=== PATIENT | male | born 1950 | race Caucasian/White ===

== ENCOUNTER → 2017-12-13 11:34 | Outpatient (CLI) | payer MEDICARE, SELFPAY ==
--- NOTE | 2017-12-13 11:37 | DI.RAD.S_ITS ---
PROCEDURE: XR LUMBAR SPINE MIN 4V INDICATIONS: Lumbar stenosis with left L4-5 radicular TECHNIQUE: 5 views of the lumbar spine were acquired. COMPARISON: [facility], CR, SPINE LUMB 2 OR 3VW, 09/24/2016, 16:16. [facility], MR, L-SPINE W&WO CONTRAST, 06/03/2017, 17:52. FINDINGS: Bones: 5 nonrib-bearing vertebrae are present. There is mild retrolisthesis at L2-3. Degenerative disc disease and spondylosis at L2-3 and L5-S1. Facet sclerosis L3-4, L4-5 and L5-S1.. No vertebral body compression fractures. No suspicious bony lesions. Soft tissues: Overlying bowel gas pattern is normal. No suspicious soft tissue calcifications. Oblique images: No pars defects. IMPRESSION: 1. Degenerative disc disease L2-3 and L5-S1 2. Facet arthropathy L3-4 through L5-S1. Dictated by: Saul Pinzon M.D. on 12/13/2017 at 12:18 Approved by: Saul Pinzon M.D. on 12/13/2017 at 12:22
== END ==
PROVIDERS: PCP Family Medicine; Visit Provider Physical Medicine & Rehabilitation
DX: M51.16 Intervertebral disc disorders with radiculopathy, lumbar region (principal); M48.062 Spinal stenosis, lumbar region with neurogenic claudication; M51.17 Intervertebral disc disorders with radiculopathy, lumbosacral region; M47.26 Other spondylosis with radiculopathy, lumbar region; M47.27 Other spondylosis with radiculopathy, lumbosacral region; M96.1 Postlaminectomy syndrome, not elsewhere classified
CPT/HCPCS: 72110; 99214

== ENCOUNTER → 2017-12-18 16:11 | Outpatient (CLI) | payer MEDICARE, SELFPAY ==
--- NOTE | 2017-12-18 | DI.RAD.S_ITS ---
PROCEDURE: XR RIBS LT 2V INDICATIONS: LEFT RIB PAIN TECHNIQUE: 2 views of the left ribs were acquired. COMPARISON: None. FINDINGS: Surgical changes and devices: None. Bones and chest wall: No fractures or dislocations. No suspicious bony lesions. Overlying soft tissues appear unremarkable. Lungs and pleura: The visualized lung appears clear. No pleural effusions or pneumothorax are visible. IMPRESSION: No trauma found, source of asymmetric left sided rib pain is not seen. Dictated by: Matthias Abdi M.D. on 12/18/2017 at 16:49 Approved by: Matthias Abdi M.D. on 12/18/2017 at 16:50
== END ==
PROVIDERS: PCP Family Medicine; Visit Provider Family Medicine
DX: R07.81 Pleurodynia (principal)
CPT/HCPCS: 71100

== ENCOUNTER 2017-12-24 10:25 | Outpatient (CLI) | payer MEDICARE, SELFPAY ==
[2017-12-24] VITALS (8 sets, daily range): BP systolic 108–140; BP diastolic 64–91; PULSE 60–67; RESP 11–18; TEMP 36.6; O2SAT 97–100
--- NOTE | 2017-12-24 10:26 | DI.RAD.S_ITS ---
PROCEDURE: PAIN L/S TRANSFORAMINAL INJECT INDICATIONS: Lumbar stenosis FINDINGS: Fluoroscopic spot filming was performed to verify placement of spinal needles at the L4-5 level(s), as labeled on the films. Appropriate location(s) of the needle tip(s) was confirmed by injection of iodinated contrast. IMPRESSION: Intraoperative verification of needle placement at the L4-5 level Dictated by: Saul Pinzon M.D. on 12/24/2017 at 13:19 Approved by: Saul Pinzon M.D. on 12/24/2017 at 13:19
--- NOTE | 2017-12-24 11:09 | P.PCN_ITS ---
Procedures Date/Time Date of procedure: 12/24/17 Time of procedure: 11:08 General Procedure description: PREOP DIAGNOSIS 1. FORMAINAL STENOSIS WITH LE SYMPTOMS POST OP DIAGNOSIS 1. FORMAINAL STENOSIS WITH LE SYMPTOMS PROCEDURES 1. FLUOROSCOPICALLY GUIDED CONTRAST CONTROLLED TRANSFORAMINAL EPIDURAL STEROID INJECTION - LEFT L4/5 PHYSICIAN: Lopez Smith DO INDICATIONS: Dhiraj is referred by Dr. Ross for treatment of Foraminal Stenosis with Left LE Symptoms FINDINGS Foraminal Nerve Root Compression secondary to disc disease and facet hypertrophy DESCRIPTION OF PROCEDURE: Following denial of allergy and review of potential side effects and complications, including, but not necessarily limited to, infection, allergic reaction, local tissue breakdown, stroke, temporary or permanent nerve injury, paralysis, and possible , the patient indicated that the patient understood and agreed to proceed. An informed consent document was signed by the patient, witnessed by a nurse, and placed in the patient's chart. Additionally, other treatment options including medications, modalities, and physical therapy were reviewed with the patient. After review of previous anaesthesic history and IV conscious sedation the patient was deemed safe to proceed with todays procedure with IV conscious sedation as ASA class II designation. Safety time-out was performed to confirm patient ID, procedure to be performed and site of procedure. IV sedation was accomplished with a combination of 5mg of Versed administered by the RN after DO order, titrated to patient comfort during the course of the procedure while the patient remained responsive to all verbal commands In the prone position following sterile prep and drape of the lumbar region, the left L4/5 posterior neuroforamen was identified fluoroscopically. The skin was anesthetized via a 25-gauge 1.5-inch needle with 1% lidocaine solution. At this point, a 25-gauge 3.5-inch spinal needle was atraumatically introduced and advanced under fluoroscopic guidance through the posterior left L4/5 neuroforamen to approximately the anterior aspect of the canal. Depth was confirmed on lateral view. Following negative aspiration, injection of approximately 1.5 cc of Isovue 200 under live fluoroscopy in the AP view confirmed excellent flow along the nerve root, into the epidural space without vascular or intrathecal uptake observed Radiological data, including multiple fluoroscopic views of the lumbosacral spine, reveal a spinal needle at the left L4/5 posterior neuroforamen. Subsequent views show flow of contrast material flowing superiorly and inferiorly along the nerve root confirming epidural flow. Subsequently, a test dose of 1.5 cc of 1% lidocaine solution was administered and patient was observed for two minutes for signs or symptoms of complications , including abdominal pain, shortness of breath, bilateral upper or lower extremity weakness, nausea and vomiting, prior to steroid injection. At this point, a total of 3 cc or 20 mg of dexamethasone and 80mg Depo Medrol was injected without incident. The procedure tolerated the procedure well without signs or symptoms of complications prior to transfer to the recovery area continued monitoring without incident. The patient was then transferred to the recovery area where they were observed for an appropriate time after the injection. The patient reported a VAS score of 7 prior to the procedure and a post- procedure VAS of 0. Total Fluoroscopy Time: 20.9 seconds Total Conscious Sedation Time: 24min POST OP INSTRUCTIONS The patient was provided a Pain Log to continue to record their response to the target-specific procedure prior to follow-up visit with their referring physician. Additionally, specific post-injection care instructions and a contact number to our office were provided if concerns arise regarding possible complications associated with the procedure are suspected. Lopez Smith DO Complications: none
[2017-12-24] MEDS: MIDAZOLAM 5 MG/5 ML VIAL IV (11:42)
[2017-12-24] MEDS: IOPAMIDOL 15 ML VIAL 3 ML INJ (11:42)
[2017-12-24] MEDS: BUPIVACAINE 0.25% (PF) VIAL 2 ML INJ (11:42)
[2017-12-24] MEDS: DEXAMETHASONE 10 MG/ML VIAL 20 MG INJ (11:43)
[2017-12-24] MEDS: methylPREDNISolone acetate 80 MG/ML VIAL INJ (11:43)
--- NOTE | 2017-12-25 18:06 | PC.NURSE ---
Follow up appt post procedure. left message as pt was not home or not answering.
== END 2017-12-24 12:30 ==
LOC: RAD 10:26
PROVIDERS: PCP Family Medicine; Visit Provider Physical Medicine & Rehabilitation
DX: M48.062 Spinal stenosis, lumbar region with neurogenic claudication (principal); M51.16 Intervertebral disc disorders with radiculopathy, lumbar region; M96.1 Postlaminectomy syndrome, not elsewhere classified
CPT/HCPCS: 64483; 99152; J1040; J1100; J2250

== ENCOUNTER → 2018-01-07 11:27 | Outpatient (CLI) | payer MEDICARE, SELFPAY ==
[2018-01-07 13:04] LABS: Hep C Virus Ab w/Reflex Quant NEGATIVE s/c (NEGATIVE)
== END ==
PROVIDERS: PCP Family Medicine; Visit Provider Internal Medicine Gastroenterology
DX: Z11.59 Encounter for screening for other viral diseases (principal)
CPT/HCPCS: 36415; 86803

== ENCOUNTER → 2018-03-24 16:59 | Outpatient (CLI) | payer MEDICARE, SELFPAY ==
--- NOTE | 2018-03-24 | DI.MRI.S_ITS ---
PROCEDURE: MR STROKE Pre- and post-contrast brain MRI, non-contrast brain MR angiogram, pre- and postcontrast neck MR angiogram INDICATIONS: SPEECH DISTURBANCE. Headaches. Head pressure TECHNIQUE: Brain: Noncontrast axial T1 spin echo, axial T2 fast spin echo, sagittal and axial FLAIR, coronal T2 fast spin echo, axial gradient echo, axial diffusion and ADC through the brain. After the administration of contrast, axial 3D VIBE of the cranial vasculature and brain. Brain MRA: Non-contrast 3-D time of flight MR angiogram, with multiple aiilaak-cixaveaoo-mcfpmktykn (MIP) reformats performed. Neck MRA: Axial and sagittal TruFISP through the neck. Coronal dynamic MR angiogram during administration of contrast in the arterial and venous phases, with 3-dimenstional fzqpdwh-osdymjxrz-xhdhzcifrn (MIP) reformats constructed from subtraction images. COMPARISON: None. FINDINGS: Image quality: Excellent. BRAIN: CSF spaces: Ventricles are normal in size and shape. Basal cisterns are patent. No extra-axial fluid collections. Brain: No intracranial bleeds or mass effects. Paulino-white matter interface is normal. Diffusion weighted images show no acute ischemic insults. Brainstem appears normal. Normal intravascular flow voids are present. No abnormal intracranial enhancement. Skull and face: Calvarial marrow signal is normal. Orbits appear normal. Sinuses: Mild bilateral maxillary sinus disease. BRAIN MR ANGIOGRAM: Anterior circulation: Intracranial internal carotid arteries are normal in size and enhancement. The flow within the paired anterior cerebral arteries is normal and symmetric. The flow within the middle cerebral arteries is normal and symmetric. The anterior communicating artery is seen. No stenoses, occlusions, or aneurysms. Posterior circulation: The visualized portions of the vertebral arteries demonstrate normal caliber, and join to form a normal appearing basilar artery. The flow within the posterior cerebral arteries is normal and symmetric. No stenoses, occlusions, or aneurysms. NECK MR ANGIOGRAM: Carotids: Great vessels demonstrate a conventional anatomy as they arise from the aortic arch. The origins of the common carotid arteries appear patent. The calibers and courses of both common carotid arteries are normal. The bifurcation regions appear normal bilaterally. The internal carotid arteries demonstrate normal course and caliber. Posterior circulation: The origins of the vertebral arteries appear patent. More superior portions of both vertebral arteries demonstrate normal course and caliber, and join to form a normal appearing basilar artery. Miscellaneous: Subclavian arteries appear patent. Pre-contrast images through the neck show no soft tissue abnormalities. IMPRESSION: BRAIN MRI: No evidence of acute ischemia. No acute signal abnormality. Mild bilateral maxillary sinus disease. BRAIN MR ANGIOGRAM: Negative examination. No focal stenosis or occlusion NECK MR ANGIOGRAM: No ICA stenosis. Dictated by: Johan oDn M.D. on 03/25/2018 at 7:50 Approved by: Johan Don M.D. on 03/25/2018 at 7:59
== END ==
PROVIDERS: PCP Family Medicine; Visit Provider Family Medicine
DX: R47.9 Unspecified speech disturbances (principal); R51 Headache; J32.0 Chronic maxillary sinusitis
CPT/HCPCS: 70553; A9579

== ENCOUNTER → 2018-06-03 15:58 | Outpatient (CLI) | payer MEDICARE, SELFPAY ==
--- NOTE | 2018-06-03 | DI.MRI.S_ITS ---
PROCEDURE: MR CERVICAL SPINE WO CON INDICATIONS: HEADACHE DISORDER TECHNIQUE: Noncontrast sagittal T1 spin echo and T2 fast spin echo, sagittal STIR, foraminal oblique sagittal T2 fast spin echo, and axial gradient echo or T2 fast spin echo through the cervical spine. COMPARISON: [facility], , CERVICAL SPINE 2 OR 3 VIEWS, 10/29/2012, 15:32. [facility], , CERVICAL SPINE 4 OR 5 VIEWS, 04/18/2015, 15:27. FINDINGS: Image quality: Excellent. Alignment and Curvature: There is normal bony alignment. Bone Marrow: Marrow demonstrates normal overall signal. Spinal Cord: Visualized spinal cord has normal size and signal. No cerebellar tonsillar herniation. Paraspinous Soft Tissues: No paravertebral masses. Prevertebral soft tissues are normal in thickness. C2-C3: Mild to moderate loss of disc height and disc signal are seen. Moderate generalized disc osteophyte complex is seen. Mild facet joint hypertrophy is seen. Moderate bilateral neural foraminal narrowing can be seen, right worse than left. Mild to moderate central canal narrowing is seen. C3-C4: Moderate loss of disc height is seen. Loss of disc signal is seen. At least moderate disc osteophyte complex is seen, which is eccentric to the left. There is moderate to severe bilateral neural foraminal narrowing seen, right worse than left. Moderate to severe central canal narrowing is seen, with associated mass effect upon the ventral spinal cord, as on series 3 image 17. C4-C5: Moderate loss of disc height is seen. Loss of disc signal is seen. Moderate generalized disc osteophyte complex is seen. Mild to moderate facet hypertrophy is seen. There is moderate to severe bilateral neural foraminal narrowing seen. Severe central canal narrowing is seen, with associated mass effect upon the ventral spinal cord, as on series 3 image 21. C5-C6: Moderate loss of disc height and disc signal are seen. Moderate generalized disc osteophyte complex is seen. Moderate facet joint hypertrophy is seen. There is moderate to severe bilateral neural narrowing seen, left worse than right. Moderate to severe central canal narrowing is seen, with associated mass effect upon the ventral spinal cord, as on series 3 image 25. C6-C7: Moderate loss of disc height is seen. Loss of disc signal is seen. Moderate generalized disc osteophyte complex is seen. Uncovertebral joint hypertrophy is seen at this level. Mild to moderate facet hypertrophy is seen. Moderate bilateral neural foraminal narrowing is seen. Mild to moderate central canal narrowing is seen. C7-T1: The disc height is well-preserved. Loss of disc signal is seen at this level. Mild to moderate disc osteophyte complex is seen. Mhjd-zq-akttvitf bilateral neural foraminal narrowing is seen. Mild to moderate central canal narrowing is seen. IMPRESSION: Multilevel cervical spine degenerative change are seen, which are most prominent at the C3-C4, C4-C5, and C5-C6 levels. Dictated by: Terrence Villafana M.D. on 06/03/2018 at 16:50 Approved by: Terrence Villafana M.D. on 06/03/2018 at 16:56
== END ==
PROVIDERS: Family Provider Physical Medicine & Rehabilitation; PCP Family Medicine; Visit Provider Psychiatry & Neurology Neurology
DX: R51 Headache (principal); M47.812 Spondylosis without myelopathy or radiculopathy, cervical region
CPT/HCPCS: 72141

== ENCOUNTER 2018-07-16 08:13 | Outpatient (CLI) | payer MEDICARE, SELFPAY ==
[2018-07-16] VITALS (7 sets, daily range): BP systolic 100–138; BP diastolic 61–80; PULSE 58–68; RESP 16–18; TEMP 36.4; O2SAT 95–100
--- NOTE | 2018-07-16 08:15 | DI.RAD.S_ITS ---
PROCEDURE: PAIN C/T INTERLAMINAR INJECT INDICATIONS: SPINAL STENOSIS FINDINGS: Fluoroscopic spot filming was performed to verify placement of spinal needles at the C6-C7 level(s), as labeled on the films. Appropriate location(s) of the needle tip(s) was confirmed by injection of iodinated contrast. Dictated by: Johan Don M.D. on 07/16/2018 at 17:24 Approved by: Johan Don M.D. on 07/16/2018 at 17:24
[2018-07-16] MEDS: fentaNYL 100 MCG/2 ML INJ 50 MCG IV (08:50)
[2018-07-16] MEDS: MIDAZOLAM 5 MG/5 ML VIAL IV (08:50)
--- NOTE | 2018-07-16 09:05 | PC.NURSE ---
Pt tolerated procedure well, pt able to get off table with standby assist. Transferred pt to pre procedure room for continued monitoring by Wendy LUDWIG.
--- NOTE | 2018-07-16 09:12 | P.PCN_ITS ---
Procedures Date/Time Date of procedure: 07/16/18 Time of procedure: 09:11 General Procedure description: PREOP DIAGNOSIS 1. CERVICAL STENOSIS, 2. CERVICAL HNP WITH UPPER EXTREMITY RADICULAR FEATURES, POST OP DIAGNOSIS 1. CERVICAL STENOSIS, 2. CERVICAL HNP WITH UPPER EXTREMITY RADICULAR FEATURES, PROCEDURES 1. FLUORSCOPICALLY GUIDED CONTRAST CONTROLLED INTERLAMINAR EPIDURAL STEROID INJECTION - C6/7 TL ETHAN PHYSICIAN: Lopez Smith, DO INDICATIONS Enoch is referred by Dr. Ross for treatment of Cervical HNP with Upper Extremity Paresthesias. FINDINGS Cervical Stenosis due to disc deterioration and nerve root irritation and nerve root irritation DESCRIPTION OF PROCEDURE Fluoroscopically guided, contrast-controlled C6/7 translaminar epidural steroid injection with conscious sedation. Following denial of allergy and review of potential side effects and complications, including, but not necessarily limited to, infection, allergic reaction, local tissue breakdown, temporary as well as permanent nerve injury, stroke, paralysis, and possible , the patient indicated that patient understood and agreed to proceed. An informed consent document was signed by the patient, witnessed by a nurse, and placed in the patient's chart. Additionally, other treatment options including modalities, medications, and physical therapy were reviewed with the patient. After review of previous anaesthesic history and IV conscious sedation the patient was deemed safe to proceed with todays procedure with IV conscious sedation as ASA class II designation. Safety time-out was performed to confirm patient ID, procedure to be performed and site of procedure. IV sedation was accomplished with a combination of 5mg of Versed and 50mcg of Fentanyl administered by the RN after DO order, titrated to patient comfort during the course of the procedure while the patient remained responsive to all verbal commands. In the prone position, following sterile prep and drape of the cervical region, the C6/7 translaminar space was identified fluoroscopically. The skin was anesthetized via a 25-gauge 1.5-inch needle with 1% lidocaine solution. At this point, a 25-gauge, 2.5-inch short bevel spinal needle was atraumatically in troduced and advanced under fluoroscopic guidance into epidural space at the C6/7 translaminar space. Depth was confirmed on lateral view. Radiological data, including multiple fluoroscopic views of the cervical spine, reveal a spinal needle at the C6/7 translaminar space. Lateral views then show placement of the needle in the epidural space. Subsequent views show contrast material flowing superiorly and inferiorly in the epidural space. DSA fluoroscopy with live contrast injection, once again, confirmed no vascular or intrathecal uptake. At this point, using loss of resistance technique with saline and air, the epidural space was entered. Following negative aspiration, injection of approximately 1.5 cc of Isovue-200 with live fluoroscopy in the AP view confirmed epidural flow in the epidural space without vascular or intrathecal uptake observed. Subsequently, a test dose of 1 cc of 1% lidocaine solution was injected and patient was observed for two minutes without signs or symptoms of complications, including abdominal pain, shortness of breath, bilateral upper or lower extremity weakness, nausea and vomiting, prior to steroid injection. At this point, 2cc or 20mg of dexamethasone was then injected without incident. The patient tolerated the procedure well without signs or symptoms of complications prior to being transferred to the recovery area for further monit oring, The patient was then transferred to the recovery area where they were observed for an appropriate period of time after the injection. The patient reported a VAS score of 6 prior to the procedure and a post-procedure VAS of 0. Total Fluoroscopy Time: 37.0 seconds Total Conscious Time: 24min POST OP INSTRUCTIONS The patient was provided a Pain Log to continue to record their response to the target-specific procedure prior to follow-up visit with the referring provider. Additionally, specific post-injection care instructions and a contact number to our office were provided if concerns arise regarding possible complications associated with the procedure are suspected. Lopez Smith DO Complications: none
[2018-07-16] MEDS: LIDOCAINE 1% 20 ML INJ 5 ML INJ (09:17)
[2018-07-16] MEDS: IOPAMIDOL 15 ML VIAL 3 ML INJ (09:17)
[2018-07-16] MEDS: DEXAMETHASONE 10 MG/ML VIAL 20 MG INJ (09:17)
--- NOTE | 2018-07-16 09:18 | PC.NURSE ---
ACCEPTED CARE OF PT IN POST PROC AREA IN STABLE CONDITION
== END 2018-07-16 09:39 | disposition home or self-care (01) ==
LOC: RAD 08:14
PROVIDERS: Family Provider Physical Medicine & Rehabilitation; PCP Family Medicine; Visit Provider Physical Medicine & Rehabilitation
DX: M48.02 Spinal stenosis, cervical region (principal); M50.123 Cervical disc disorder at C6-C7 level with radiculopathy; M47.22 Other spondylosis with radiculopathy, cervical region
CPT/HCPCS: 62321; 99152; J1100; J2250; J3010

== ENCOUNTER → 2018-12-05 09:06 | Outpatient (CLI) | payer MEDICARE, SELFPAY ==
--- NOTE | 2018-12-05 | DI.US.S_ITS ---
PROCEDURE: US ARTERIAL DUPLEX LE BI INDICATIONS: BILATERAL LEG PAIN TECHNIQUE: Color and pulse Doppler interrogation was performed of both lower extremity arterial systems, with image documentation. COMPARISON: None. FINDINGS: Right lower extremity: Common femoral artery: 186 cm/sec, with triphasic flow. Deep femoral artery: 217 cm/sec, with triphasic flow. Proximal superficial femoral artery: 165 cm/sec, with triphasic flow. Mid superficial femoral artery: 121 cm/sec, with triphasic flow. Distal superficial femoral artery: 87 cm/sec, with triphasic flow. Popliteal artery: 108, 55 cm/sec, with triphasic flow. Posterior tibial artery: 89, 117, 93 cm/sec, with triphasic flow. Anterior tibial artery/dorsalis pedis: 63, 85, 104 cm/sec, with triphasic flow. Paulino-scale imaging description: No significant stenoses Left lower extremity: Common femoral artery: 116 cm/sec, with triphasic flow. Deep femoral artery: 105 cm/sec, with triphasic flow. Proximal superficial femoral artery: 108 cm/sec, with triphasic flow. Mid superficial femoral artery: 90 cm/sec, with triphasic flow. Distal superficial femoral artery: 67 cm/sec, with triphasic flow. Popliteal artery: 68, 64 cm/sec, with triphasic flow. Posterior tibial artery: 64, 66, 93 cm/sec, with triphasic flow. Anterior tibial artery/dorsalis pedis: 45, 49, 55 cm/sec, with triphasic flow. Paulino-scale imaging description: No significant stenoses IMPRESSION: No evidence of significant infrainguinal stenotic disease. Dictated by: Jacek Evangelista M.D. on 12/05/2018 at 18:31 Approved by: Jacek Evangelista M.D. on 12/05/2018 at 18:34
== END ==
PROVIDERS: Family Provider Psychiatry & Neurology Neurology; PCP Family Medicine; Visit Provider Family Medicine
DX: M79.605 Pain in left leg (principal); M79.604 Pain in right leg
CPT/HCPCS: 93925

== ENCOUNTER → 2019-03-10 12:19 | Outpatient (CLI) | payer MEDICARE, SELFPAY ==
--- NOTE | 2019-03-10 | DI.CT.S_ITS ---
PROCEDURE: CT UE RT WO CON INDICATIONS: Primary osteoarthritis, right shoulder TECHNIQUE: Noncontrast 1-1.5 mm thick sections acquired from the acromioclavicular joint to the inferior scapula, with coronal and sagittal reformatting. COMPARISON: None. FINDINGS: Image quality: Excellent. Bones: No fracture. Severe right glenohumeral joint degeneration with near zbyi-mg-govs appearance, subchondral sclerosis and spurring. Diffuse osteopenia. Mild AC joint degeneration. Posterior subluxation of the humerus relative to the glenoid Soft tissues: Right thyroid lobe calcification. Calcific tendinitis measuring approximately 4 mm on image 132 series 4. IMPRESSION: Severe right glenohumeral joint degeneration. Right shoulder calcific tendinitis. Nonspecific right thyroid calcified lesion. Further evaluation and long-term surveillance with ultrasound could be performed. Posterior subluxation of the humerus relative to the glenoid raising the possibility of posterior labral tear and associated microinstability. Dictated by: Johan Don M.D. on 03/10/2019 at 13:22 Approved by: Johan Don M.D. on 03/10/2019 at 13:30
== END ==
PROVIDERS: Family Provider Psychiatry & Neurology Neurology; PCP Family Medicine; Visit Provider Orthopaedic Surgery
DX: M19.011 Primary osteoarthritis, right shoulder (principal); M75.31 Calcific tendinitis of right shoulder; E07.9 Disorder of thyroid, unspecified
CPT/HCPCS: 73200

== ENCOUNTER → 2019-05-04 10:44 | Outpatient (CLI) | payer MEDICARE, SELFPAY ==
[2019-05-04 12:05] LABS: Add Manual Diff / Slide Review NO; Basophils Absolute Auto 0 /uL (0-100); Basophils Percent Auto 0.9 % (0-2); Eosinophils Absolute Auto 0 /uL (0-450); Eosinophils Percent Auto 1.3 % (2-4); Hematocrit 42.4 % (41-53); Hemoglobin 14.9 g/dL (13.5-17.5); Lymphocytes Absolute Auto 1100 /uL (1100-4500); Lymphocytes Percent Auto 36.4 % (25-40); Mean Corpuscular HGB Conc 35.1 % (30-36); Mean Corpuscular Hemoglobin 32.2 PG (26-34); Mean Corpuscular Volume 91.8 fL (80-100); Monocytes Absolute Auto 400 /uL (0-900); Monocytes Percent Auto 13.1 % (3-14); Neutrophils Absolute Auto 1400 /uL (1500-7000); Neutrophils Percent Auto 48.3 % (50-75); Platelet Count 232 X10^3/uL (150-400); Red Blood Cell Count 4.61 X10^6/uL (4.5-5.9); Red Cell Distribution Width 13.1 % (11.6-14.8); White Blood Cell Count 2.9 X10^3/uL (4.5-11.0)
[2019-05-04 12:38] LABS: Blood Urea Nitrogen 20 mg/dL (9-20); Calcium 9.3 mg/dL (8.4-10.2); Carbon Dioxide 30 mmol/L (22-32); Chloride 95 mmol/L (98-107); Estimated Glomerular Filt Rate > 60.0 mL/min (>60); Glucose 89 mg/dL (80-110); HEMOLYSIS < 15 (0-50); Potassium 4.3 mmol/L (3.4-5.1); Sodium 133 mmol/L (137-145)
== END ==
PROVIDERS: Family Provider Psychiatry & Neurology Neurology; PCP Family Medicine; Visit Provider Orthopaedic Surgery
DX: Z01.818 Encounter for other preprocedural examination (principal); Z01.812 Encounter for preprocedural laboratory examination
CPT/HCPCS: 36415; 80048; 85025; 93005; 93010

== ENCOUNTER 2019-05-18 06:00 | Inpatient (IN) | payer MEDICARE, SELFPAY ==
[2019-05-04 13:40] VITALS: BMI 29.0
[2019-05-18] VITALS (21 sets, daily range): BP systolic 107–151; BP diastolic 53–69; PULSE 64–84; RESP 10–20; TEMP 36.1–37; O2SAT 92–97; BMI 29.9
--- NOTE | 2019-05-18 06:00 | DI.RAD.S_ITS ---
PROCEDURE: XR SHOULDER RT MIN 2V INDICATIONS: post op TECHNIQUE: One views of the shoulder were acquired. COMPARISON: [facility], CR, XR SHOULDER 2+ VIEWS RIGHT, 10/06/2018, 12:00. [facility], CT, CT UE RT WO CON, 03/10/2019, 12:28. FINDINGS: Bones: No fractures or dislocations. No suspicious bony lesions. Visualized ribs appear intact. Partial shoulder arthroplasty is noted. Soft tissues: No suspicious soft tissue calcifications. IMPRESSION: Status post partial shoulder arthroplasty. Dictated by: Tressa Lamb M.D. on 05/18/2019 at 14:35 Approved by: Tressa Lamb M.D. on 05/18/2019 at 14:36
[2019-05-18] MEDS: LACTATED RINGERS 1,000 ML 42 ML IV ×2 (06:58→10:11)
[2019-05-18] MEDS: ACETAMINOPHEN 325 MG TABLET 975 MG PO ×2 (06:59→20:28)
[2019-05-18] MEDS: PREGABALIN 75 MG CAPSULE PO (06:59)
[2019-05-18] MEDS: CELECOXIB 200 MG CAPSULE PO (06:59)
--- NOTE | 2019-05-18 07:40 | PM.PREOP ---
Pre-operative Note Interval Note History & Physical reviewed/Exam performed by Physician: Yes Changes to H&P: No
--- NOTE | 2019-05-18 07:41 | PM.OP.1 ---
Operative Date/Time/Diagnoses Date of procedure: 05/18/19 Time of procedure: 09:35 Pre-op diagnosis: Right shoulder osteoarthritis Post-op diagnosis: same Procedure & Clinicians Procedure: Right total shoulder replacement Same procedure as scheduled: Yes Indications: The patient has had progressively worsening right shoulder pain with radiographic changes consistent with arthritis. Non-operative management has failed and the patient has requested total shoulder replacement. The risks, benefits and alternatives to surgery were discussed with the patient prior to proceeding. Risks discussed included, but were not limited to, failure to relieve pain, stiffness, infection, nerve damage, deep venous thrombosis, pulmonary embolism, stroke, coma, heart attack, permanent paralysis and , as well as the potential need for eventual revision of the prosthetic. Surgeon: Ted Lo Felling Bucking Supervisor: Nabeel Pressley Click Yes if Unassisted: No Anesthesia Type: General, Peripheral nerve block and Local Operative Notes Findings: Moderately severe osteoarthritis of the right shoulder Closure Type: primary Specimen(s): none sent Prosthetic devices, grafts, tissues, transplants, or devices: Prosthetics used in this procedure were manufactured by the [employer] and included an Eclipse stemless total shoulder replacement with a large VaultLock glenoid, a 47 trunion, large cage screw and a 47 X 18 mm head. Applied: implant(s) Blood products transfused: none Procedure in detail: The patient was seen in the pre-operative area, where the patient identified the right shoulder as the operative site and this was marked with my initials. The patient received pre-operative antibiotics, underwent an interscalene block, and was taken to the operating room and placed on the operative table in the supine position. After satisfactory anesthesia, a full ?time out? was performed. The patient was repositioned in the ?beach chair? position using a dedicated positioner. All pressure points were well padded, and the knees were slightly bent to prevent tension on the sciatic nerves. The right arm was prepared from the fingers to the base of the neck with ChloroPrep in the usual fashion and draped through sterile drapes. An approximately 15 cm incision was created, starting at the clavicle above the coracoid process and extended towards the deltoid insertion. The deltopectoral interval was used to access the shoulder. The cephalic vein was taken medially. A self retaining retractor was placed. The upper centimeter of the pectoralis major tendon was released. The ?three sisters? were identified and cauterized. The axillary nerve was palpated and protected throughout the case. The biceps was released from its groove and tenodesed over the top of the pectoralis major tendon. The subscapularis was released from the lesser tuberosity with a subscapularis peel and tagged for later repair. The shoulder was dislocated and a cutting guide was used for the proximal humeral osteotomy in 30 degrees of retroversion. The sizer was applied and the proximal humerus scored to jim the spot for the screw. A proximal humeral protector was then placed. We then removed the self-retaining retractor and placed retractors to access the glenoid. The subscapularis was released with a ?360 degree release? with care being taken to protect the axillary nerve with the inferior portion of this procedure. The remnant of labrum and biceps stump were removed. The appropriate size reamer was chosen with the glenoid sizer, and the guide pin placed. The glenoid was appropriately reamed. The guide for the peripheral holes was used and the center hole enlarged. The trial glenoid was placed with good stability. We then cemented the final implant into place after irrigating the peg holes and drying them with thrombin-soaked Gelfoam. There was a fairly sizable glenoid cyst that communicated with the lower tab on the glenoid. This was filled with cement as it was in continuity. We returned our attention to the humerus, 5 holes were drilled along the humeral osteotomy and #2 Ethibond sutures placed for an eventual subscapularis repair. A 47 trunion was placed, we were able to place 2 of the sutures through the slots in the trunion. The the cage screw was then implanted and used to tighten the trunion down. A trial humeral head was applied and a trial reduction performed. Stability was checked with 50% posterior translation with spontaneous reduction, 45? external rotation with the subscapularis held in the repaired position and 70? internal rotation in the ?scarecrow position?. This was felt to be satisfactory and the appropriate humeral head implant was opened. The joint was relocated one final time. The joint was irrigated and the subscapularis repaired to the previously placed sutures using Jorge-Joseph sutures. The top of the subscapularis was closed to the leading edge of the supraspinatus with a figure of 8 #2 TiCron to close the rotator interval. A deep drain was placed and brought out supero-laterally. The deltopectoral interval was closed with interrupted 0 Vicryl. The subcutaneous layer was closed with 3-0 Vicryl, and the skin with a running 3-0 V-Lock suture and SteriStrips. An Aquacel Ag dressing was applied, the patient?s arm was placed in a sling, and the patient was taken to recovery having tolerated the procedure well. Complications: none Post-operative Condition: stable Disposition: PACU Plan for aftercare: The patient will be maintained on a standard total shoulder replacement protocol with passive range of motion limited to 90 degrees forward flexion, 0 degrees external rotation at the side, 0 degrees abduction and internal rotation to the body. The patient will receive aspirin and sequential compression devices for DVT prophylaxis. The patient will be discharged home when safe for the home environment, likely tomorrow.
[2019-05-18] MEDS: MIDAZOLAM 2 MG/2 ML VIAL IV (07:43)
--- NOTE | 2019-05-18 07:49 | SUR.PREOP ---
Block start time [0746] . Monitoring initiated and maintained throughout procedure. Oxygen and medications given per anesthesiologist instructions. Patient remained stable throughout procedure, no adverse reactions noted. Block end time [0750].
[2019-05-18] MEDS: CEFAZOLIN 2 GM/100 ML FROZ.PIGGY IV (07:55)
[2019-05-18] MEDS: BUPIVACAINE 0.5% W/ EPI (PF) 10 ML VIAL 30 ML INJ (08:36)
[2019-05-18] MEDS: THROMBIN (RECOMBINANT) 5,000 UNIT VIAL 5000 UNIT TOP (08:37)
[2019-05-18] MEDS: TRANEXAMIC ACID 1,000 MG VIAL 1000 MG INJ ×2 (08:37→09:35)
--- NOTE | 2019-05-18 08:46 | SUR.OPER ---
Beach chair with Schlein shoulder positioner. Lower body on padded OR bed. Head in foam padded head cradle, secured with straps. Non-operative arm secured <90 degrees abduction. Pillow under knees. Safety belt at thigh. Gel pad under heels. Cloth tape over blanket over lower legs.
--- NOTE | 2019-05-18 08:56 | P.PCN_ITS ---
Procedures Date/Time Date of procedure: 05/18/19 Time of procedure: 07:57 Nerve Block Time out performed: Yes Local anesthetic used: other (15mL 0.5opivacaine, 5mL 2* idocaine) Location of anesthetic used: interscalene Amount of anesthesia used (mL): 20 Nerve blocks: brachial plexus (interscalene) Procedure successful: Yes Patient tolerated procedure: well Complications: none Additional comments: Brachial plexus nerve block for post operative pain management. Risks and benefits discussed, including bleeding, infection, intravascular injection, nerve damage, block failure. Standard ASA monitors, NC O2. Pt supine. Chloroprep site preparation, sterile technique. Brachial plexus identified with US guidance, traced from supraclavicular to interscalene. 1mL 2% lidocaine skin wheal. 22g x 50mm Pajunk advanced with in-plane US guidance to brachial plexus. Negative aspiration. LA injected with intermittent negative aspiration. Good LA spread noted on US. No pain, no paraesthesia. Pt tolerated procedure well. Vital signs stable.
[2019-05-18] MEDS: BUPIVACAINE 0.5% W/ EPI (PF) 30 ML VIAL INJ (10:04)
[2019-05-18] MEDS: ONDANSETRON 4 MG/2 ML INJ IV ×2 (10:37→11:12)
[2019-05-18] MEDS: HYDROMORPHONE 2 MG INJ IV ×2 (10:40→10:54)
[2019-05-18] MEDS: hydrOXYzine 50 MG/ML INJ 25 MG IM (10:43)
[2019-05-18] MEDS: METOCLOPRAMIDE 10 MG/2 ML INJ IV (11:31)
--- NOTE | 2019-05-18 11:38 | SUR.PHASEI ---
Assumed care LAMBERT Lopez, still nauseated, Dr. Verdin informed, IV reglan ordered and given. Reported back to OZIEL Lopez
--- NOTE | 2019-05-18 12:42 | PC.NURSE ---
Day shift: Pt on unit from PACU at approx 1220. Sensation present in RUE. Radial pulse and good cap refill. VS WNL. Oriented to room and call light. Lupillo-vac patent. Tolerating ice chips but had nausea in PACU. Call light in reach. Pt asleep as this note written ([id number]).
[2019-05-18] MEDS: LACTATED RINGERS 1,000 ML 125 ML IV ×2 (12:55→20:46)
--- NOTE | 2019-05-18 13:12 | PT-IP ANOTE ---
PT orders received and chart reviewed. This therapist contacted the pt to initiate evaluation but pt presented as extremely groggy and with continued nausea. Will check on pt later this afternoon as staffing allows or morning of 05/19/19.
[2019-05-18] MEDS: OXYCODONE IR 10 MG TABLET PO ×3 (14:45→22:11)
[2019-05-18] MEDS: IBUPROFEN 600 MG TABLET PO (14:50)
--- NOTE | 2019-05-18 15:21 | PT.IIE ---
Current Diagnoses Primary osteoarthritis, right shoulder (05/18/19) Surgery Performed Operation Date: 05/18/19 07:45 Actual Procedures p Total Shoulder Arthroplasty(Right) - Ted Lo MD Surgical History (Last Updated 05/04/19 @ 13:54 by Jordana Zamarripa RN) History of arthroplasty of left knee (Acute 08/24/11) History of arthroplasty of right knee (Acute 02/17/14) History of colon resection (Acute) Hx of laminectomy (Acute 10/18/16) Medical History (Last Updated 05/04/19 @ 14:18 by Jordana Zamarripa RN) Chronic reflux esophagitis (Acute) Colon cancer (Acute) Detached retina (Acute) Hyponatremia (Acute) LAFB (left anterior fascicular block) (Acute) Leukopenia (Acute) Melanoma (Acute) Osteoarthritis (Acute) Partial sensory seizure disorder (Acute) Peripheral neuropathy (Acute) Polyneuropathy (Acute) Small bowel obstruction (Acute) Spinal stenosis (Acute) Physical Therapy Inpatient Evaluation/Re-Eval M1 PT/OT-IP Prior Functional Status Start: 05/18/19 12:52 Freq: NEEDED Status: Active Protocol: Document 05/18/19 14:30 AW (Rec: 05/18/19 15:20 AW [id number]) Medical Review Prior Functional Status Medical History Reviewed Yes Communication WNL Mobility and Gait Pt has history of Charcot Shawna Tooth. He uses a SPC at home ~30% of the time but admits he is often near furniture or dickens for support when not using the cane. He typically uses the cane held in his right hand but has been practicing using the cane in the left hand to prepare for surgery.He states he could walk up to 1.5-2 hours with support though he finds it painful. Activities of Daily Living and IADL's Independent, though showering has become more difficult due to pain and decreased strength . Prior Functional Level (Other details) Pt performs home exercise program prescribed by PT twice /day. Social History Household Members spouse Living Arrangements House Number of Floors (Floors) One Floor Number of Stairs To Enter/Railing? 4 CHAVEZ from garage with left rail ascending. In preparation for surgery, pt has practiced descending backward in order to use the railing with his L UE. Home Environment Standard Height Toilet,Walk in Shower,Tub/Shower Home Equipment Straight Cane,Tub Transfer Bench,Lift Recliner,Grab Bars Near Toilet Employment Status Retired Additional Social History Comment Pt is a retired international marketing coordinator who lives with his , Nidhi. Spouse is able and available to assist at home essentially 10/12. He recently acquired a transfer bench for his tub and also has a new lift recliner which he has been sleeping in for the past few days. He plans to sleep in the recliner at discharge. M2 PT-IP Current Condition Start: 05/18/19 12:52 Freq: NEEDED Status: Active Protocol: Document 05/18/19 14:30 AW (Rec: 05/18/19 15:20 AW [id number]) Physical Therapy Current Condition Current Condition Evaluation Date 05/18/19 Treatment Diagnosis s/p R TSA, impaired mobility, decreased independence with ADL's Onset Date 05/18/19 Precautions Shoulder Precautions Sling,PROM,Internal Rotation to Body,No External Rotation, No Abduction,Forward Flexion to 90 degrees,Pendulums Brace shoulder sling for all mobility Other Precautions Shoes for all OOB mobility Weight Bearing Status Weight Bearing Status Full Weight Bearing M3 PT-IP Subjective Start: 05/18/19 12:52 Freq: NEEDED Status: Active Protocol: Document 05/18/19 14:30 AW (Rec: 05/18/19 15:20 AW [id number]) Subjective Physical Therapy Visit Type Type Initial Evaluation Visit Start Time 13:40 Visit Stop Time 14:25 Total Visit Minutes 45 Notes Pt's spouse, Nidhi, present during eval Physical Therapy Visit Comments Patient Comments Pt would like to get PT out of the way so he can rest Patient Goals To return home with spouse support at discharge Therapy Pain Assessment Pain When Pain Assessed During Mobility Pain Present Pain Present Pain Reported Location Right Shoulder Scale Used not quantified; pt just starting to experience pain during treatment Description Aching,Dull Pain Behaviors Facial Grimacing Pain Management Techniques Apply Cold,Timing of Activity with Medications M4 PT-IP Mobility and Gait Start: 05/18/19 12:52 Freq: NEEDED Status: Active Protocol: Document 05/18/19 14:30 AW (Rec: 05/18/19 15:20 AW [id number]) PT-Bed Mobility Assessment Supine to Sit Supine to Sit Standby Assistance Sit to Supine Sit to Supine Standby Assistance Scooting Scooting to Edge of Bed Standby Assistance PT-Transfer Assessment Sit to and From Stand Sit to and from Stand Contact Guard Assistance Equipment Transfer Assistive Device Gait Belt,Straight Cane Transfers Transfer Destination Bed Transfer Technique pt ambulated with SPC Transfer Ability Level of Assist Contact Guard Assistance Comments Mobility Comments Pt feeling groggy but with improved nausea symptoms. He completed bed mobility and sat EOB SBA. PT donned shoes for the pt which he prefers for all OOB mobility. Sit to stand using SPC from bed in lowest position required CGA due to unsteadiness. Pt is right- handed and unaccustomed to using the cane in his left hand. Pt ambulated 15 feet in the room using SPC CGA to min A x 1 due to unsteadiness which pt reports is worse than baseline. Pt requested return to bed, completing sit to supine SBA. Pt was positioned in the bed with alarm on for safety, call light and all needs within reach. RN and VALIDATION CONSULTANT notified that pt was starting to report pain. Gait Assessment Gait Gait Assistance Required: Contact Guard Assist,Minimum Assistance Distance (Feet) 15 Able to Maintain Weight Bearing Status Yes During Gait Assistive Devices Assistive Device Gait Belt,Straight Cane Orthotic/Prosthetic Devices or Brace: Yes Gait Deviations General Gait Pattern Antalgic,Decreased Stride Length,Decreased Feet Clearance,Flexed Trunk Factors Limiting Gait Function Factors Limiting Gait Function Decreased Activity Tolerance, Decreased Sensation,Decreased Strength,Poor Balance,Poor Safety Awareness Comments Gait Comments Pt ambulated ~15 feet in the room including a stop at the sink/mirror. With shoes donned and SPC he required CGA to min A x 1 for balance. Stair Climbing Assessment Comments Stair Climbing Comments Not assessed due to safety concerns PT-Balance Assessment Sitting Balance and Reactions Static Sitting Balance Ability Good Dynamic Sitting Balance Ability Good Standing Balance and Reactions Static Standing Balance Ability Fair Dynamic Standing Balance Ability Poor Device Used SPC M5 PT-IP Objective Assessments Start: 05/18/19 12:52 Freq: NEEDED Status: Active Protocol: Document 05/18/19 14:30 AW (Rec: 05/18/19 15:20 AW [id number]) Orientation Orientation/Cognition Level of Alertness Alert Orientation Name,Day of Week,Place, Situation Language Function Ability No Deficits Noted Safety Awareness Decreased Safety Awareness Memory Description No Deficits Noted Comments Safety awareness decreased in the context of recent anesthesia. Gross Range of Motion Upper Extremity ROM Assessment Right Impaired Lower Extremity ROM Assessment Bilaterally Impaired Impairments Limited ankle DF bilaterally Strength Upper Extremity Strength Assessment Right Impaired Lower Extremity Strength Assessment Bilaterally Impaired Hip R 4-/5; L 3+/5 Knee R 4+/5; L 4-/5 Ankle B 4-/5 Comments Strength Comments general weakness with left more affected than right, consistent with baseline Coordination Assessment Gross Coordination Gross Coordination WNL Sensation Assessment Sensation Gross Sensation Right UE Impaired,Left UE Impaired,Right LE Impaired, Left LE Impaired Light Touch Impaired Sensation Description Numbness,Tingling Comments Sensation Comments Pt with dull light touch sensation in bilateral feet, stocking distribution. He reports onset of tingling sensation in his bilateral hands (left worse than right) in the past few weeks. M6 PT-IP Treatment Start: 05/18/19 12:52 Freq: NEEDED Status: Active Protocol: Document 05/18/19 14:30 AW (Rec: 05/18/19 15:20 AW [id number]) Physical Therapy Treatment Education Education Provided Precautions,Post-Op Packet, Safety Brace Education [place],Patient, Caregiver Other Treatments Other Treatment Performed Provided education on role of PT, plan of care, post-op precautions, elbow/wrist/hand AROM. Demonstration of proper sling fitting was performed in front of mirror for visual feedback with pt and spouse verbalizing understanding. M7 PT-IP Assessment and Plan Start: 05/18/19 12:52 Freq: NEEDED Status: Active Protocol: Document 05/18/19 14:30 AW (Rec: 05/18/19 15:20 AW [id number]) PT Summary Assessment and Plan Potential Rehabilitation Potential Excellent Status of Condition at Evaluation Evolving Summary Impairments Pain,ROM,Strength,Balance, Sensation,Bed Mobility, Transfers,Gait Assessment Summary Dhiraj is a 69 yo man with history of Charcot Shawna Tooth disease which affects strength and sensation. He was seen for PT evaluation on POD0 following R TSA. At baseline, pt uses a SPC for household mobility ~30% of the time and admits to increased need for UE support when ambulating without a cane. He performs a PT-prescribed HEP twice daily to maintain strength. He reports he does best with shoes on for all out of bed mobility. On evaluation, pt presents with impaired R UE ROM and strength as well as impaired sensation /strength of B LE which is consistent with his baseline condition. He required CGA to min assist for transfers and short bout ambulation with SPC which represents a decline from his baseline function. PT anticipates he will meet the functional goals of this plan of care as he is highly motivated and has good support at home. Assuming achievement of goals, pt will be safe to discharge home with spouse support and outpatient PT once medically cleared. Will continue to assess and refine discharge disposition. Goals Bed Mobility Goal Independent Transfer Goal Standby Assistance,Cane Gait Goal Standby Assistance,Cane Gait Distance 150 Other Goals - Up/down 4 steps with left rail ascending CGA. Pt may descend backwards to use the railing with his L UE. Days to Meet Goals 3 Frequency of Treatment Frequency Of Treatment Twice a Day Treatment Plan Physical Therapy Treatment Plan Bed Mobility Training,Transfer Training,Gait Training, Therapeutic Exercise,Balance Retraining,Post Op Education, Discharge Planning,Hot or Cold Pack,Neuromuscular Re-ed Other Recommendations and Next Treatment gait with SPC, stairs Focus Recommendations To Nursing Amount of Assist Needed 1 Person Assist Discharge Recommendations PT Discharge Recommendations Home with Assistance, Outpatient PT
--- NOTE | 2019-05-18 16:01 | CM.DANOTE ---
DCP Assessment: EMR reviewed: Patient is a 69 yr old male who was admitted for Rt TSA preformed by Dr. Lo. PCP is . CM/Rn met with patient at the bedside. Patient was alert and oriented x3 at time of CM visit. Patient currently lives with his Nidhi. Patient is independent with all ADLs and drives own vehicle. Patients first post op appointment is scheduled for 06/01/2019 in [place] and has OP PT set up with [facility] here in [place]. PT met with patient and recommends that patient go home with assistance and op PT. I: Medicare 2nd: A[employer] Plan: D/C home when medically stable with . Follow up with OP PT as scheduled and attend post op appointment on 06/01/2019. No identified D/C planning needs noted at this time. CM department will follow to assist with any D/C planning needs that may arise. Anyi Castillo RN Discharge Planning/Care Management CM Discharge Assessment Start: 05/18/19 15:39 Freq: Status: Active Protocol: Document 05/18/19 15:39 HS (Rec: 05/18/19 15:41 HS [id number]) Discharge Planning Assessment Assigned Manager Collection Anyi Castillo RN DPOA/Assigned Designee Name Nidhi Pina () Contact Information [phone] Advance Directives? Yes: DPOA FOR Advance Directives on File Yes History Provided By Patient Has Patient been admitted in last 30 No days? Prior Living Arrangements House Household Members spouse Type of transporation used prior to Drives own vehicle admit Independent with ADL's Yes Is patient alert and oriented? Yes Caregiver for Another No DME Already Rented / Owned Bath Bench,Elevated Toilet Seat,Cane Comment Grab bars in bathroom Patient/Family Preference OP PT Therapy Comment Home with and OP PT Discharge Plan Home Referrals Initiated None needed Whiteboard Updated in Patient Room with Yes name and ext. # of Manager Collection Review Status In Process Next Review Type Continued Stay Review Pre-Anesthesia Assessment Start: 05/04/19 13:40 Freq: Status: Active Protocol: Document 05/04/19 13:40 CAB (Rec: 05/04/19 14:46 CAB [id number]) Pre-Anesthesia Assessment Preferred Name Dhiraj Patient Information Reviewed Via Phone Assessment Assessment Completed With Patient Diagnostic Results BMP/CMP,CBC,EKG Comment Labs/EKG @ [facility] 12/16/19 WBC 2. 9 Primary Care Provider Lopez Ross Seen Specialist in Last 12 Months Yes Specialist Seen Orthopedist Primary Language Faroese Client Hr Manager Required No Height 185.42 cm Weight 99.79 kg Body Mass Index (BMI) 29.0 Hearing Ability Normal Visual Assist Magnifying Glass Dentition Type Teeth, Natural Present,Teeth, Missing Barriers to Learning None,Age related,Visual Other Aids No Hx Anesthesia Reactions Yes: Awoke violent s/p colon resection Hx Family Anesthesia Reaction No Hx Malignant Hyperthermia No Hx Blood Transfusions No Anesthesia Review Requested No alcohol intake current alcohol intake frequency a few times a month Smoking Status Never smoker Substance Use Type does not use Pain Present Pain Reported Musculoskeletal Symptoms Abnormal Gait,Back Pain, Difficulty Walking,Joint Pain, Limited Range of Motion,Muscle Weakness,Neck Pain,Numbness, Tingling History of Falling (Recent or History of No ) Patient is completely paralyzed or No completely immobile Prosthesis or Orthotic Device Cane Mental Status Oriented to own ability Is patient on oxygen? No Does patient have SOMERS/SOB No Hx Sleep Apnea No Currently Taking a Beta Ijeoma No Hx Chest Pain No Hx SOB No Hx Syncope or Dizziness No Anti-Coagulant Therapy No Has a Risk Control Consultant No Cardiac Testing No Hx Pacemaker/ICD No Pacemaker Rep Required? No Cardiac Clearance Received Not Applicable Diet Type At Home Regular dysphagia No Bladder Pattern Nocturia Urinary Catheter Present No Hx Urinary Self Catheterization No Diabetes No Hx Drug Resistant Organism No Presence of External or Internal Medical No Devices Have you traveled outside the [facility] States in the last 30 days? Marital Status Lives With spouse Prior Living Arrangements House Number of Floors (Floors) One Floor Support System Child/Children,Spouse Does the Patient Have Assistance After Yes Surgery Patient Discharge Plan Description Return Home Comment Pt not advised on length of stay per surgeon Feels Safe in Current Environment Yes Been Physically Hurt or Threatened By a No Person in Current Environment Do you have thoughts of harming yourself None or others? Are you currently considering suicide? No Do you have a plan to hurt yourself or No Plan others? Do You Have Any Spiritual Beliefs That No May Affect Your HC Choices? Do You Have Any Cultural Practices That No May Affect Your HC Choices? Spiritual Referral In-House Life Insurance Specialist Comment Nondenominational Who Can We Speak to About Patient's Care Family, friends Identifying Code for Release of Patient Declines to issue Information Health Care Proxy/Next of Kin Nidhi () Health Care Proxy Emergency Contact Name Nidhi () Emergency Contact Advance Directives? Yes Advance Directives on File Yes Power of Audio Visual Collections Coordinator Yes Power of Audio Visual Collections Coordinator Name Parth Xie Power of Audio Visual Collections Coordinator PAC Instructions Do not shave/clip surgical site,Durable medical equipment ,Medications to take/avoid, Nasal antibiotic,No ETOH/ petroleum product on skin DOS, NPO,Post-op transportation,Pre -surgical wash,Sturdy shoes/ comfortable clothes,Do not bring valuables and remove jewelry
[2019-05-18] MEDS: DOCUSATE 100 MG CAPSULE PO (20:28)
[2019-05-18] MEDS: ASPIRIN EC 81 MG TABLET PO (20:28)
[2019-05-18] MEDS: carBAMazepine XR 100 MG TAB 600 MG PO (20:41)
[2019-05-18] MEDS: levETIRAcetam 250 MG TABLET 1000 MG PO (20:41)
[2019-05-19] MEDS: OXYCODONE IR 10 MG TABLET PO ×4 (01:24→11:27)
[2019-05-19] MEDS: ZOLPIDEM 5 MG TABLET PO (01:26)
[2019-05-19 04:45] VITALS: BP 159/75; PULSE 73; RESP 18; TEMP 37.2; O2SAT 98
[2019-05-19] MEDS: PANTOPRAZOLE 20 MG TABLET PO (06:02)
[2019-05-19 06:11] LABS: Hematocrit 37.5 % (41-53); Hemoglobin 12.9 g/dL (13.5-17.5); Mean Corpuscular HGB Conc 34.4 % (30-36); Mean Corpuscular Hemoglobin 31.9 PG (26-34); Mean Corpuscular Volume 92.7 fL (80-100); Platelet Count 185 X10^3/uL (150-400); Red Blood Cell Count 4.05 X10^6/uL (4.5-5.9); White Blood Cell Count 6.7 X10^3/uL (4.5-11.0)
--- NOTE | 2019-05-19 07:21 | P.DS_ITS ---
History of Present Illness History of Present Illness Date Patient Seen: 05/19/19 Time Patient Seen: 07:21 Chief complaint: [id number] Right Total Shoulder Arthroplasty Narrative: The history and physical is contained in the chart and a previously completed note. Please refer to that note for this information. Discharge Providers Provider Date of admission: 05/18/19 06:00 Discharge Date: 05/19/19 Primary care physician: Lopez Ross MD Consults: 05/18/19 12:29 Consult to Discharge Planning Routine Comment: Consult to Physical Therapy Evaluate & Treat Comment: Physician Instructions: Evaluate and Treat Discharge provider: Ted Lo MD Summary Hospital Course Discharge Diagnosis: 1. Right shoulder osteoarthritis 2. Post hemorrhagic anemia Hospital Course: Patient was admitted the hospital and taken directly to the operating room on May 18, 2019. He underwent a right total shoulder replacement. He tolerated this procedure well. He was stable on postoperative day 1 but did have an anticipated post hemorrhagic anemia. Status at Discharge Cognitive/behavioral status at discharge: oriented Functional status at discharge: independent ambulation Overall status at discharge: patient is progressing back to baseline Time Spent with Patient Time spent: Less than 30 minutes Exam Vital Signs (past 8 hours): - 05/18/19 23:26 05/19/19 04:45 Temperature 98.5 F 99.0 F Pulse Rate 66 73 Respiratory Rate 18 18 Blood Pressure 125/64 159/75 H Pulse Oximetry 96 98 Oxygen Delivery Method Room Air Oxygen Flow Rate 0 Narrative Exam Narrative: Right shoulder wound is dressed with no drainage on the bandage. There is some bruising further down the upper arm. Light touch is intact in the radial, ulnar, median, muscular cutaneous and axillary nerve distribution. He can extend his thumb, abduct his thumb and abduct his fingers. Objective Labs Result Diagrams: 05/19/19 05:16 Labs: Laboratory Results - last 24 hr 05/19/19 05:16 WBC 6.7 RBC 4.05 L Hgb 12.9 L Hct 37.5 L MCV 92.7 MCH 31.9 MCHC 34.4 RDW 13.0 Plt Count 185 Discharge Plan Discharge Plan Patient Disposition: Home Discharge orders & Medications Prescriptions: New aspirin 81 mg Tablet,Delayed Release (Dr/Ec) 81 mg PO BID 42 Days Qty: 84 RF: 0 oxycodone 5 mg Tablet 5 mg PO Q3HR PRN (Reason: Pain, Moderate (4-6)) Qty: 40 RF: 0 Continued multivitamin [Multiple Vitamins] 1 EACH tablet 1 tab PO DAILY Qty: 0 RF: 0 levetiracetam [Keppra] 500 MG tablet 1,000 mg PO BID Qty: 360 RF: 3 carbamazepine [Carbatrol] 300 MG capsule, ER multiphase 12 hr 600 mg PO BID Qty: 360 RF: 3 lorazepam 0.5 mg Tablet 0.5 mg PO DAILY PRN (Reason: Anxiety or sleep) RF: 0 zolpidem [Ambien] 10 mg Tablet 5 - 10 mg PO BEDTIME PRN (Reason: Sleep) RF: 0 lutein-zeaxanthin [Ocuvite Blue Light] 25-5 mg Capsule 1 cap PO DAILY RF: 0 acetaminophen 500 mg Capsule 1,000 mg PO Q6H PRN (Reason: Pain) RF: 0 Excedrin Migraine 250-250-65 mg Tablet 1 tab PO Q4-6H PRN (Reason: Migraines) RF: 0 ibuprofen 200 mg Capsule 600 mg PO QD-BID PRN (Reason: Pain) RF: 0 pantoprazole [Protonix] 20 mg tablet,delayed release (DR/EC) 20 mg PO DAILY RF: 0 Follow up/Referrals: Ted Lo MD [Physician] - 2 Weeks Lopez Ross MD [Primary Care Provider] - Discharge Health Status Multidrug resistant organism: No MDRO Diet/Activity/Treatments Diet: Diet as Tolerated and Regular Activity: You may use your right arm in front of the body below shoulder level. You may do pendulum exercises. Keep the sling on otherwise. Cold/Heat Therapy: Apply ice to the right shoulder for 15 minutes every hour as needed for pain control. Skin/Wound/Dressing Care Report to your healthcare provider any signs of infection, such as:: chills, fever, night sweats, increased pain, unusual drainage and unusual redness Dressing: Leave the dressing intact until follow-up. You may shower with the d ressing in place. If the center strip of the dressing becomes saturated with either water or blood, please contact the office. Visit Report/Discharge Packet Instructions: DI for Prescription Opioid Use, DI for Shoulder Replacement Stand Alone Forms: Surgery Discharge Discharge Data Primary Care Provider: Lopez Ross
[2019-05-19] MEDS: ASPIRIN EC 81 MG TABLET PO (07:46)
[2019-05-19] MEDS: DOCUSATE 100 MG CAPSULE PO (07:47)
[2019-05-19] MEDS: levETIRAcetam 250 MG TABLET 1000 MG PO (07:48)
[2019-05-19] MEDS: POLYETHYLENE GLYCOL 3350 17 GM POWD.PACK PO (07:48)
[2019-05-19] MEDS: IBUPROFEN 600 MG TABLET PO (07:49)
[2019-05-19] MEDS: carBAMazepine XR 100 MG TAB 600 MG PO (07:51)
[2019-05-19] MEDS: ACETAMINOPHEN 325 MG TABLET 975 MG PO (07:53)
[2019-05-19 08:00] VITALS: BP 138/64; PULSE 75; RESP 17; TEMP 38.1; O2SAT 95
--- NOTE | 2019-05-19 10:49 | PT.IPTN ---
Current Diagnoses Primary osteoarthritis, right shoulder (05/18/19) Surgery Performed Operation Date: 05/18/19 07:45 Actual Procedures p Total Shoulder Arthroplasty(Right) - Ted Lo MD Physical Therapy Treatment Note M2 PT-IP Current Condition Start: 05/18/19 12:52 Freq: NEEDED Status: Active Protocol: Document 05/18/19 14:30 AW (Rec: 05/18/19 15:20 AW [id number]) Physical Therapy Current Condition Current Condition Evaluation Date 05/18/19 Treatment Diagnosis s/p R TSA, impaired mobility, decreased independence with ADL's Onset Date 05/18/19 Precautions Shoulder Precautions Sling,PROM,Internal Rotation to Body,No External Rotation, No Abduction,Forward Flexion to 90 degrees,Pendulums Brace shoulder sling for all mobility Other Precautions Shoes for all OOB mobility Weight Bearing Status Weight Bearing Status Full Weight Bearing M3 PT-IP Subjective Start: 05/18/19 12:52 Freq: NEEDED Status: Active Protocol: Document 05/19/19 10:36 AW (Rec: 05/19/19 10:49 AW [email or web address]) Subjective Physical Therapy Visit Type Type Treatment Note Visit Start Time 09:20 Visit Stop Time 09:53 Total Visit Minutes 33 Notes Pt's spouse present for most of treatment Physical Therapy Visit Comments Patient Comments I do better after I do my exercises to get me going. Therapy Pain Assessment Pain When Pain Assessed At Rest Pain Present Pain Present Reassessed Location Right Shoulder Intensity 7 Pain Management Techniques Apply Cold,Timing of Activity with Medications M4 PT-IP Mobility and Gait Start: 05/18/19 12:52 Freq: NEEDED Status: Active Protocol: Document 05/19/19 10:36 AW (Rec: 05/19/19 10:49 AW [email or web address]) PT-Bed Mobility Assessment Supine to Sit Supine to Sit Standby Assistance,Head of Bed Elevated Sit to Supine Sit to Supine Standby Assistance,Head of Bed Elevated Scooting Scooting to Edge of Bed Standby Assistance PT-Transfer Assessment Sit to and From Stand Sit to and from Stand Contact Guard Assistance Equipment Transfer Assistive Device Gait Belt,Straight Cane Orthotic/Prosthetic Devices or Brace: Yes Transfers Transfer Destination Bed,Wheelchair Transfer Technique pt ambulated with SPC or SOLID TIRE FINISHER/ CGA Transfer Ability Level of Assist Contact Guard Assistance Comments Mobility Comments Pt continued to require CGA for transfers even after performing seated and standing exercise this morning. Pt provided increased assist with donning shoes but his states she will be able to help at home. Pt alternately prefers use of SPC in left hand, SOLID TIRE FINISHER, or contact with dickens/furniture for transfers and ambulation. Gait Assessment Gait Gait Assistance Required: Contact Guard Assist Distance (Feet) 75 Able to Maintain Weight Bearing Status Yes During Gait Assistive Devices Assistive Device Gait Belt,Straight Cane Orthotic/Prosthetic Devices or Brace: Yes Gait Deviations General Gait Pattern Antalgic,Ataxic,Decreased Stride Length,Decreased Feet Clearance,Flexed Trunk Factors Limiting Gait Function Factors Limiting Gait Function Decreased Activity Tolerance, Decreased Sensation,Decreased Strength,Poor Balance,Poor Safety Awareness Comments Gait Comments Pt with mildly ataxic gait with high steppage pattern (L> R) for foot clearance. Pt required CGA of hand-hold or left arm on therapist shoulder for steadiness. He reports he has everything set up at home so that he can hold on to something at all times. Stair Climbing Assessment Evaluation Level of Assist On Stairs Contact Guard Assistance Devices Stair Climbing Assistive Devices Left Railing Technique/Endurance Stair Climbing Direction Ascend and Descend Stair Climbing Technique Step Over Step,Step to Step Number of Steps Climbed 3 Stair Climbing Set # Repetitions (reps) 2 Comments Stair Climbing Comments Pt ascended using left rail step over step CBA. He descended backward using left rail step to requiring CGA which was able to demonstrate with good technique. M5 PT-IP Objective Assessments Start: 05/18/19 12:52 Freq: NEEDED Status: Active Protocol: Document 05/18/19 14:30 AW (Rec: 05/18/19 15:20 AW [id number]) Orientation Orientation/Cognition Level of Alertness Alert Orientation Name,Day of Week,Place, Situation Language Function Ability No Deficits Noted Safety Awareness Decreased Safety Awareness Memory Description No Deficits Noted Comments Safety awareness decreased in the context of recent anesthesia. Gross Range of Motion Upper Extremity ROM Assessment Right Impaired Lower Extremity ROM Assessment Bilaterally Impaired Impairments Limited ankle DF bilaterally Strength Upper Extremity Strength Assessment Right Impaired Lower Extremity Strength Assessment Bilaterally Impaired Hip R 4-/5; L 3+/5 Knee R 4+/5; L 4-/5 Ankle B 4-/5 Comments Strength Comments general weakness with left more affected than right, consistent with baseline Coordination Assessment Gross Coordination Gross Coordination WNL Sensation Assessment Sensation Gross Sensation Right UE Impaired,Left UE Impaired,Right LE Impaired, Left LE Impaired Light Touch Impaired Sensation Description Numbness,Tingling Comments Sensation Comments Pt with dull light touch sensation in bilateral feet, stocking distribution. He reports onset of tingling sensation in his bilateral hands (left worse than right) in the past few weeks. M6 PT-IP Treatment Start: 05/18/19 12:52 Freq: NEEDED Status: Active Protocol: Document 05/19/19 10:36 AW (Rec: 05/19/19 10:49 AW [email or web address]) Physical Therapy Treatment Education Education Provided Precautions,Safety M7 PT-IP Assessment and Plan Start: 05/18/19 12:52 Freq: NEEDED Status: Active Protocol: Document 05/19/19 10:36 AW (Rec: 05/19/19 10:49 AW [email or web address]) PT Summary Assessment and Plan Summary Impairments Pain,ROM,Strength,Balance, Sensation,Bed Mobility, Transfers,Gait Progress Towards Goals Progressing Toward Goals Assessment Summary Pt continues to require CGA for transfers, ambulation, and stairs. However, he and his note that current function is consistent with baseline function. They have systems in place at home to compensate for pt's unsteady gait which is due to progressive neurological condition and not acutely debilitated. Continue to recommend discharge to home with spouse assist and outpatient PT with whom he has a pre-existing and long- standing relationship. Goals Bed Mobility Goal Independent Transfer Goal Standby Assistance,Cane Gait Goal Standby Assistance,Cane Gait Distance 150 Other Goals - Up/down 4 steps with left rail ascending CGA. Pt may descend backwards to use the railing with his L UE. Days to Meet Goals 2 Frequency of Treatment Frequency Of Treatment Twice a Day Treatment Plan Physical Therapy Treatment Plan Bed Mobility Training,Transfer Training,Gait Training, Therapeutic Exercise,Balance Retraining,Post Op Education, Discharge Planning,Hot or Cold Pack,Neuromuscular Re-ed Recommendations To Nursing Amount of Assist Needed 1 Person Assist Discharge Recommendations PT Discharge Recommendations Home with Assistance, Outpatient PT
--- NOTE | 2019-05-19 10:56 | PC.NURSE ---
pending discharge: Pt feels ready to d/c home. Worked with PT and got their instructions, he walked in the hallway and did stairs. Pt has certain routine he does to keep self steady. PT reports he is at his baseline. Pt understands his activity limits with his shoulder. Does know how to use his sling. Sling fits. Po pain meds have been eff., diet tolerated w/out problems and has been voiding. Reviewed d/c instructions and given rx. Resting quietly while he waits for is .
--- NOTE | 2019-05-19 12:31 | PC.NURSE ---
Pt d/c home via auto w/spouse. Accidently left his slippers under the bed, called and made aware. She will come back to get them.
== END 2019-05-19 11:40 | disposition home or self-care (01) | DRG 483 ==
PROVIDERS: Admitting Provider Orthopaedic Surgery; Family Provider Family Medicine; PCP Family Medicine; Visit Provider Orthopaedic Surgery
PROC: 0RQJ0ZZ Repair Right Shoulder Joint, Open Approach (ICD-10-PCS; CPT 23472; principal; 2019-05-18 07:45)
DX: M19.011 Primary osteoarthritis, right shoulder (principal); G40.909 Epilepsy, unspecified, not intractable, without status epilepticus; F32.9 Major depressive disorder, single episode, unspecified
CPT/HCPCS: 36415; 64450; 73030; 85027; 94760; 97116; 97162; 97530; J0690; J1100; J1170; J2250; J2405; J2704; J2765; J3010; J3410

== ENCOUNTER → 2019-07-01 16:18 | Outpatient (CLI) | payer MEDICARE, OTHER, SELFPAY ==
[2019-05-18 15:59] VITALS: BMI 29.9
[2019-07-01 18:13] LABS: BUN Creatinine Ratio 26.7 (6-22); Blood Urea Nitrogen 24 mg/dL (9-20); Estimated Glomerular Filt Rate > 60.0 mL/min (>60)
== END ==
PROVIDERS: Family Provider Family Medicine; PCP Family Medicine; Referring Provider Family Medicine; Visit Provider Family Medicine
DX: E27.8 Other specified disorders of adrenal gland (principal)
CPT/HCPCS: 36415; 82565; 84520

== ENCOUNTER → 2019-07-06 10:48 | Outpatient (CLI) | payer MEDICARE, OTHER, SELFPAY ==
[2019-05-18 15:59] VITALS: BMI 29.9
--- NOTE | 2019-07-06 | DI.CT.S_ITS ---
PROCEDURE: CT ABDOMEN PELVIS W CON INDICATIONS: Other specified disorders of adrenal gland TECHNIQUE: After the administration of oral and intravenous contrast, 5 mm thick sections acquired from the diaphragms to the symphysis. 5 mm thick coronal and sagittal reformats were performed. For radiation dose reduction, the following was used: automated exposure control, adjustment of mA and/or kV according to patient size. COMPARISON: Outside Facility, , CT ABDOMEN/PELVIS WITH CONTRAST, 01/12/2019, 12:26. [facility], CT, ABDOMEN/PELVIS WITH CONTRAST, 05/07/2015, 22:48. FINDINGS: Image quality: Excellent. ABDOMEN: Lung bases: Lung bases are clear. Heart size is normal. Very small hiatal hernia. Solid organs: Liver is normal in size and enhancement. Gallbladder is normal. Biliary system is non-dilated. Pancreas enhances normally. Spleen is normal in size and enhancement. Kidneys are normal in size and enhancement, without hydronephrosis. There is a homogeneous, fairly well-circumscribed nodule measuring approximately 1.3 x 2.0 cm arising between the lateral and medial limb of left adrenal gland which demonstrates an average of 21 Hounsfield units postcontrast. This has not significant changed in size since 05/07/15. Peritoneum and bowel: Stomach, small bowel, and colon loops are normal in caliber and wall thickness. Increased quantity of solid stool throughout the colon. No free fluid or air. Nodes and vessels: No retroperitoneal or mesenteric adenopathy. Aorta and inferior vena cava are normal in caliber. Miscellaneous: No ventral hernias. PELVIS: Genitourinary: Bladder wall thickness is normal. Normal size prostate gland. Miscellaneous: No inguinal hernias or adenopathy. Bones: No suspicious bony lesions. Left femoral neck enchondroma is stable. Moderate degeneration of the right hip joint the end L5-S1 disc space. No vertebral body compression fractures. IMPRESSION: 1. Stable 2 cm left adrenal nodule with indeterminate Hounsfield units on this single phase contrast study, but likely an adenoma rather than a malignant lesion given lack of growth in over 4 years. 2. Mild obstipation. Dictated by: Kristin Reyes M.D. on 07/06/2019 at 15:00 Approved by: Kristin Reyes M.D. on 07/06/2019 at 15:10
== END ==
PROVIDERS: Family Provider Family Medicine; PCP Family Medicine; Referring Provider Family Medicine; Visit Provider Family Medicine
DX: E27.8 Other specified disorders of adrenal gland (principal); K59.00 Constipation, unspecified
CPT/HCPCS: 74177; Q9967

== ENCOUNTER → 2019-07-20 14:20 | Outpatient (CLI) | payer MEDICARE, OTHER, SELFPAY ==
[2019-07-20 10:33] VITALS: BMI 29.9
--- NOTE | 2019-07-20 14:24 | DI.RAD.S_ITS ---
PROCEDURE: XR LUMBAR SPINE MIN 4V INDICATIONS: Low back pain status post fusion TECHNIQUE: 5 views of the lumbar spine were acquired. COMPARISON: Merged With [facility], CR, XR LUMBAR SPINE MIN 4V, 12/13/2017, 11:24. FINDINGS: Bones: 5 nonrib-bearing vertebrae are present. No vertebral body compression fractures. Degenerative endplate changes and bilateral facet arthrosis throughout lumbar spine is seen. Minimal retrolisthesis at L2-3 and L3-4 levels are noted. No suspicious bony lesions. Soft tissues: Overlying bowel gas pattern is normal. No suspicious soft tissue calcifications. Oblique images: No pars defects. Bony foraminal stenosis is noted in bilateral L5-S1 levels. IMPRESSION: Degenerative disc disease throughout lumbar spine. No acute compression fracture. Minimal retrolisthesis at L2-3 and L3-4 levels. No gross pars defect. Bilateral bony foraminal stenosis and L5-S1 levels. Dictated by: Jimbo Verma M.D. on 07/20/2019 at 16:33 Approved by: Jimbo Verma M.D. on 07/20/2019 at 16:34
== END ==
PROVIDERS: Family Provider Family Medicine; PCP Family Medicine; Referring Provider Physical Medicine & Rehabilitation; Visit Provider Physical Medicine & Rehabilitation
DX: M54.5 Low back pain (principal); M48.061 Spinal stenosis, lumbar region without neurogenic claudication; M48.07 Spinal stenosis, lumbosacral region; M51.36 Other intervertebral disc degeneration, lumbar region; M96.1 Postlaminectomy syndrome, not elsewhere classified; G62.9 Polyneuropathy, unspecified; M47.816 Spondylosis without myelopathy or radiculopathy, lumbar region
CPT/HCPCS: 72110; 99214

== ENCOUNTER → 2019-07-25 10:28 | Outpatient (CLI) | payer MEDICARE, OTHER, SELFPAY ==
[2019-07-20 10:33] VITALS: BMI 29.9
--- NOTE | 2019-07-25 10:30 | DI.MRI.S_ITS ---
PROCEDURE: MR LUMBAR SPINE WO CON INDICATIONS: Low back pain laminectomy TECHNIQUE: Noncontrast sagittal T1 spin echo and T2 fast echo, sagittal STIR, axial T1 and T2 fast spin echo through the lumbar spine. In cases with scoliosis, additional coronal T2 fast spin echo may be performed. COMPARISON: [facility], , L-SPINE WITHOUT CONTRAST, 07/30/2016, 15:07. FINDINGS: Image quality: Excellent. Alignment and Curvature: Mild degenerative retrolisthesis of L5 on S1 measuring 6 mm. Bone Marrow: Marrow is of normal overall signal. No acute vertebral body compression fractures. Old mild T12 compression. Spinal Cord: Conus medullaris terminates at the L1-L2 level. Visualized cord demonstrates normal signal and size. Paraspinous Soft Tissues: No paravertebral masses. T12-L1: No canal stenosis or foraminal stenosis. L1-L2: Mild facet hypertrophy. No canal stenosis or foraminal stenosis. L2-L3: Unchanged. Disc bulge and facet arthropathy. Moderate canal stenosis. Moderate right foraminal narrowing with flattening deformity of the exiting right L2 nerve root. Mild to moderate left foraminal narrowing. L3-L4: Canal stenosis is mildly increased, moderate, secondary to disc bulge and facet and ligament hypertrophy and more prominent epidural lipomatosis. Moderate right foraminal narrowing with mild flattening deformity upon the exiting right L3 nerve root. Mild to moderate left foraminal narrowing. L4-L5: A right L4 laminotomy have previously been performed. Interval left L4 laminectomy. Resection of medially directed and left facet joint cyst. However, there is still moderate canal stenosis. Severe bilateral foraminal narrowing with flattening deformity on the exiting bilateral L4 nerve roots. L5-S1: Severe disc height loss. Diffuse posterior disc was osteophyte with small central posterior disc protrusion abutting the bilateral S1 nerve roots. Bilateral facet hypertrophy. Moderate bilateral canal stenosis. Moderate bilateral foraminal narrowing with mild flattening deformity on the exiting bilateral L5 nerve roots. IMPRESSION: 1. Interval left hemilaminectomy at L4-L5 with resection of the left facet joint cyst. 2. Moderate canal stenosis from L2-L3 through L5-S1. 3. Multilevel foraminal narrowing as described above, including bilateral severe foraminal narrowing at L4-L5 and moderate foraminal narrowing at L5-S1. Dictated by: Jacek Evangelista M.D. on 07/27/2019 at 8:35 Approved by: Jacek Evangelista M.D. on 07/27/2019 at 9:11
== END ==
PROVIDERS: Family Provider Family Medicine; PCP Family Medicine; Referring Provider Family Medicine; Visit Provider Physical Medicine & Rehabilitation
DX: M54.5 Low back pain (principal); M96.1 Postlaminectomy syndrome, not elsewhere classified; M43.17 Spondylolisthesis, lumbosacral region; M48.061 Spinal stenosis, lumbar region without neurogenic claudication; M48.07 Spinal stenosis, lumbosacral region
CPT/HCPCS: 72148

== ENCOUNTER → 2020-03-28 11:59 | Outpatient (CLI) | payer MEDICARE, OTHER, SELFPAY ==
[2019-07-20 10:33] VITALS: BMI 29.9
--- NOTE | 2020-03-28 | DI.MRI.S_ITS ---
PROCEDURE: MR CERVICAL SPINE WO CON INDICATIONS: Other spondylosis with myelopathy, cervical region TECHNIQUE: Noncontrast sagittal T1 spin echo and T2 fast spin echo, sagittal STIR, foraminal oblique sagittal T2 fast spin echo, and axial gradient echo or T2 fast spin echo through the cervical spine. COMPARISON: [facility], MR, MR CERVICAL SPINE WO CON, 06/03/2018, 16:27. FINDINGS: Image quality: Excellent. Alignment and Curvature: There is normal bony alignment. Bone Marrow: Reactive endplate changes noted adjacent to the C2-C3, C3-C4, C4-C5, C5-C6 and C6-C7 discs. Spinal Cord: Visualized spinal cord has normal size and signal. No cerebellar tonsillar herniation. Paraspinous Soft Tissues: No paravertebral masses. Prevertebral soft tissues are normal in thickness. C2-C3: Loss of disc signal and height. Mild, diffuse disc bulge. Moderate right and mild left facet hypertrophy. Mild to moderate narrowing of the central canal. Moderate bilateral neural foraminal narrowing. No neural compression. C3-C4: Loss of disc signal and height. Moderate, diffuse disc bulge. Central/left central disc protrusion. Moderate bilateral facet hypertrophy. Severe narrowing of the central canal with slight compression of the cervical spinal cord. Moderate bilateral uncovertebral joint hypertrophy. Severe bilateral neural foraminal narrowing with compression of the exiting C4 nerve roots. C4-C5: Loss of disc signal and height. Moderate, diffuse disc bulge. Moderate bilateral facet hypertrophy. Moderate bilateral uncovertebral joint hypertrophy. Severe narrowing of the central canal with compression of the cervical spinal cord. Severe bilateral neural foraminal narrowing with compression of the exiting C5 nerve roots. C5-C6: Loss of disc signal and height. Moderate, diffuse disc bulge. Moderate narrowing of the central canal. Moderate bilateral facet and uncovertebral joint hypertrophy. Severe bilateral neural foraminal narrowing with compression of the exiting C6 nerve roots. C6-C7: Loss of disc signal and height. Mild, diffuse disc bulge. Bpnh-ml-zohlyhgg narrowing of the central canal. Mild to moderate bilateral facet hypertrophy. Mild bilateral uncovertebral joint hypertrophy. Moderate right and severe left neural foraminal narrowing with compression of the exiting left C7 nerve root. C7-T1: Loss of disc signal. Mild, diffuse disc bulge. Mild bilateral facet hypertrophy. Mild right and moderate left neural foraminal narrowing. No neural compression IMPRESSION: 1. Multilevel degenerative disease. 2. Multilevel facet and uncovertebral arthropathy. 3. Severe C3-C4 and C4-C5 central canal narrowing with compression of the cervical spinal cord. 4. Severe bilateral C3-C4, C4-C5 and C5-C6 neural foraminal narrowing with compression of the exiting bilateral C4 nerve roots, exiting bilateral C5 nerve roots and exiting bilateral C6 nerve roots. Severe left C6-C7 neural foraminal narrowing with compression of the exiting left C7 nerve root. Dictated by: Roxana Valencia MD, PhD on 03/28/2020 at 16:01 Approved by: Roxana Valencia MD, PhD on 03/28/2020 at 16:30
== END ==
PROVIDERS: Family Provider Family Medicine; PCP Family Medicine; Referring Provider Family Medicine; Visit Provider Physical Medicine & Rehabilitation Pain Medicine
DX: M47.12 Other spondylosis with myelopathy, cervical region (principal); M50.01 Cervical disc disorder with myelopathy, high cervical region; M48.02 Spinal stenosis, cervical region
CPT/HCPCS: 72141

== ENCOUNTER → 2020-08-30 14:06 | Outpatient (CLI) | payer MEDICARE, OTHER, SELFPAY ==
[2019-07-20 10:33] VITALS: BMI 29.9
--- NOTE | 2020-08-30 14:15 | DI.CT.S_ITS ---
PROCEDURE: CT UE LT WO CON INDICATIONS: Pain in left shoulder TECHNIQUE: Noncontrast 1-1.5 mm thick sections acquired from the acromioclavicular joint to the inferior scapula, with coronal and sagittal reformatting. COMPARISON: [facility], CR, XR SHOULDER 2+ VIEWS LEFT, 07/25/2020, 11:40. FINDINGS: Image quality: Excellent. Bones: Severe glenohumeral joint osteoarthritis is seen with complete loss of joint space, extensive subchondral sclerosis and cyst formation and prominent inferior marginal osteophyte formation. Moderate to severe acromioclavicular joint osteoarthritic changes are seen. No acute shoulder fracture or dislocation. No suspicious intraosseous lesion. Visualized left upper ribs are intact. Soft tissues: There is no full-thickness rotator cuff tendon rupture. No significant rotator cuff muscle atrophy. No abnormal soft tissue calcifications. There is no significant joint effusion is seen. There is suggestion of fluid distension of subcoracoid bursa. IMPRESSION: 1. Severe glenohumeral joint osteoarthritis and moderate to severe acromioclavicular joint osteoarthritis. No shoulder fracture or dislocation. No suspicious intraosseous lesion. 2. No significant joint effusion. No full-thickness rotator cuff tendon rupture. Suggestion of moderate to large subcoracoid bursal fluid. No abnormal soft tissue calcifications. Dictated by: Jimbo Verma M.D. on 08/30/2020 at 15:31 Approved by: Jimbo Verma M.D. on 08/30/2020 at 15:34
== END ==
PROVIDERS: Family Provider Family Medicine; PCP Family Medicine; Referring Provider Orthopaedic Surgery; Visit Provider Orthopaedic Surgery
DX: M25.512 Pain in left shoulder (principal); M19.012 Primary osteoarthritis, left shoulder
CPT/HCPCS: 73200

== ENCOUNTER → 2020-12-28 12:51 | Outpatient (CLI) | payer MEDICARE, OTHER, SELFPAY ==
[2019-07-20 10:33] VITALS: BMI 29.9
--- NOTE | 2020-12-28 | DI.CT.S_ITS ---
PROCEDURE: CT UE LT WO CON INDICATIONS: Pain in left shoulder TECHNIQUE: Noncontrast 1-1.5 mm thick sections acquired from the acromioclavicular joint to the inferior scapula, with coronal and sagittal reformatting. COMPARISON: [facility], CT, CT UE LT WO CON, 08/30/2020, 14:11. FINDINGS: Image quality: Excellent. Bones: No acute fracture. Severe glenohumeral joint degeneration with yjqp-hj-[id number] appearance, marked subchondral sclerosis and spurring as before. Severe AC joint degeneration also noted. Soft tissues: The visualized left lung grossly unremarkable. Dense calcifications seen in the right lobe of the thyroid. There are bilateral carotid atherosclerotic calcifications. Grossly unchanged appearance of the rotator cuff within limitations of the modality. IMPRESSION: Overall, unchanged examination with redemonstration of advanced left shoulder osteoarthritis. Incidentally noted bilateral carotid atherosclerosis Dictated by: Johan Don M.D. on 12/28/2020 at 13:33 Approved by: Johan Don M.D. on 12/28/2020 at 13:38
== END ==
PROVIDERS: Family Provider Family Medicine; PCP Family Medicine; Referring Provider Orthopaedic Surgery; Visit Provider Orthopaedic Surgery
DX: M25.512 Pain in left shoulder (principal); M19.012 Primary osteoarthritis, left shoulder; I65.23 Occlusion and stenosis of bilateral carotid arteries
CPT/HCPCS: 73200

== ENCOUNTER → 2021-01-10 11:56 | Outpatient (CLI) | payer MEDICARE, OTHER, SELFPAY ==
[2019-07-20 10:33] VITALS: BMI 29.9
--- NOTE | 2021-01-10 | DI.MRI.S_ITS ---
PROCEDURE: MR ANGIO HEAD WO CON INDICATIONS: DIZZINESS TECHNIQUE: Noncontrast axial 3-D [id number] MR angiogram, with 3-dimensional maximum intensity projection (MIP) reformats of the internal carotid arteries and posterior circulation then performed. COMPARISON: [facility], , MR ANGIO NECK W CON, 01/10/2021, 13:20. FINDINGS: Image quality: Excellent. Anterior circulation: Intracranial internal carotid arteries demonstrate normal size and intraluminal flow signal. The flow within the paired anterior cerebral arteries is normal and symmetric. Atherosclerotic irregular noted in the origin of the left middle cerebral artery which causes moderate, short segment narrowing of the vessel. Scattered atherosclerotic irregularity noted in the M1 and M2 branches of the right middle cerebral artery which causes mild multifocal stenosis. The anterior communicating artery is seen. No stenoses, occlusions, or aneurysms. Posterior circulation: Atherosclerotic irregularity noted in the distal V4 segment of the right vertebral artery which causes xmhy-gw-kvfkubvs multifocal stenosis. Left vertebral artery appears fully patent. Normal flow noted in the basilar artery. The flow within the posterior cerebral arteries is normal and symmetric. No stenoses, occlusions, or aneurysms. IMPRESSION: 1. Moderate, short segment stenosis of the origin of the M1 branch of the left middle cerebral artery. 2. Mild multifocal stenoses involving the M1 and M2 segments of the right middle cerebral artery. 3. Mild to moderate multifocal stenosis involving the distal V4 segment of the right vertebral artery. Dictated by: Roxana Valencia MD, PhD on 01/10/2021 at 16:20 Approved by: Roxana Valencia MD, PhD on 01/10/2021 at 16:24
--- NOTE | 2021-01-10 | DI.MRI.S_ITS ---
PROCEDURE: MR HEAD/BRAIN WO CON INDICATIONS: DIZZINESS TECHNIQUE: Non-contrast axial T1 spin echo, axial T2 fast spin echo, sagittal and axial FLAIR, coronal T2 fast spin echo, axial gradient echo, axial diffusion and ADC through the brain. COMPARISON: None. FINDINGS: Image quality: Excellent. CSF spaces: Ventricles appear symmetric in size and shape. Basal cisterns are patent. No extra-axial fluid collections. Brain: No intracranial bleeds or mass effects. There is cerebral volume loss for age. There are periventricular and deep white matter chronic small vessel ischemic changes. Brainstem appears normal. Diffusion-weighted images show no acute ischemic insults. No chronic ischemic insults. Normal intravascular flow voids are present. Skull and face: Calvarial bone marrow is normal in signal. Orbits are normal. Sinuses: Sinuses and mastoids are clear. IMPRESSION: Global cerebral volume loss and chronic microvascular ischemic changes, both mild age-commensurate. No acute intracranial abnormality. Dictated by: Kevan Duke M.D. on 01/10/2021 at 14:53 Approved by: Kevan Duke M.D. on 01/10/2021 at 14:55
--- NOTE | 2021-01-10 | DI.MRI.S_ITS ---
PROCEDURE: MR ANGIO NECK W CON INDICATIONS: DIZZINESS TECHNIQUE: Axial and sagittal TruFISP through the neck. Coronal dynamic MRA after the administration of contrast in the arterial and venous phases, with rotating 3-dimensional maximum intensity projection (MIP) reformats constructed from subtraction images. COMPARISON: None. FINDINGS: Image quality: Excellent. Carotid system: Great vessels demonstrate a conventional anatomy as they arise from the aortic arch. The origins of the common carotid arteries appear normal. The calibers and courses of the common carotid arteries are likewise normal. The carotid bifurcations appear normal bilaterally. The internal carotid arteries are widely patent up to the [place]. Posterior circulation: The origin of the left vertebral artery is fully patent. Mild atherosclerotic irregularity noted in the origin of the right vertebral artery which causes mild narrowing of the vessel. Mild atherosclerotic irregularity noted in the distal V4 segment of the right vertebral artery which causes multifocal [id number]-zg-fnwhqrvl stenosis. The more superior portions of the vertebral arteries demonstrate normal course and caliber. Vertebral arteries join to form a normal appearing basilar artery. Miscellaneous: Subclavian arteries are patent throughout. Pre-contrast images through the neck demonstrate no soft tissue abnormalities. IMPRESSION: 1. Internal carotid arteries appear fully patent. 2. Left vertebral artery is fully patent. 3. Mild atherosclerotic stenosis of the origin of the right vertebral artery and mild to moderate atherosclerotic stenosis of the distal V4 segment of the right vertebral artery. Any quantitative measurements of stenosis were performed using NASCET criteria. Dictated by: Roxana Valencia MD, PhD on 01/10/2021 at 16:24 Approved by: Roxana Valencia MD, PhD on 01/10/2021 at 16:26
== END ==
PROVIDERS: Family Provider Family Medicine; PCP Family Medicine; Referring Provider Neuromusculoskeletal Medicine, Sports Medicine; Visit Provider Neuromusculoskeletal Medicine, Sports Medicine
DX: R42 Dizziness and giddiness (principal); I66.03 Occlusion and stenosis of bilateral middle cerebral arteries; I65.01 Occlusion and stenosis of right vertebral artery
CPT/HCPCS: 70544; 70548; 70551

== ENCOUNTER → 2021-01-25 10:27 | Outpatient (CLI) | payer MEDICARE, OTHER, SELFPAY ==
[2019-07-20 10:33] VITALS: BMI 29.9
[2021-01-25 11:22] LABS: Add Manual Diff / Slide Review NO; Basophils Absolute Auto 0 /uL (0-100); Basophils Percent Auto 0.9 % (0-2); Eosinophils Absolute Auto 0 /uL (0-450); Hematocrit 40.7 % (41-53); Hemoglobin 13.9 g/dL (13.5-17.5); Lymphocytes Absolute Auto 1200 /uL (1100-4500); Lymphocytes Percent Auto 28.1 % (25-40); Mean Corpuscular Hemoglobin 30.7 PG (26-34); Mean Corpuscular Volume 90.4 fL (80-100); Monocytes Absolute Auto 600 /uL (0-900); Monocytes Percent Auto 13.6 % (3-14); Neutrophils Absolute Auto 2400 /uL (1500-7000); Neutrophils Percent Auto 56.4 % (50-75); Platelet Count 243 X10^3/uL (150-400); Red Blood Cell Count 4.51 X10^6/uL (4.5-5.9); Red Cell Distribution Width 13.1 % (11.6-14.8); White Blood Cell Count 4.3 X10^3/uL (4.5-11.0)
[2021-01-25 11:51] LABS: BUN Creatinine Ratio 22.2 (6-22); Blood Urea Nitrogen 14 mg/dL (9-20); Calcium 9.1 mg/dL (8.4-10.2); Carbon Dioxide 27 mmol/L (22-32); Chloride 91 mmol/L (98-107); Estimated Glomerular Filt Rate > 60.0 mL/min (>60); Glucose 85 mg/dL (80-110); HEMOLYSIS < 15 (0-50); Potassium 4.5 mmol/L (3.4-5.1); Sodium 127 mmol/L (137-145)
== END ==
PROVIDERS: Family Provider Family Medicine; PCP Family Medicine; Referring Provider Orthopaedic Surgery; Visit Provider Orthopaedic Surgery
DX: Z01.818 Encounter for other preprocedural examination (principal); Z01.812 Encounter for preprocedural laboratory examination
CPT/HCPCS: 36415; 80048; 85025; 93005

== ENCOUNTER → 2021-02-03 09:05 | Outpatient (CLI) | payer MEDICARE, OTHER, SELFPAY ==
[2019-07-20 10:33] VITALS: BMI 29.9
[2021-02-03 11:03] LABS: COVID19 -Nasal RAPID Negative (Negative)
== END ==
PROVIDERS: Family Provider Family Medicine; PCP Family Medicine; Visit Provider Nurse Practitioner
DX: Z01.812 Encounter for preprocedural laboratory examination (principal); Z20.822 Contact with and (suspected) exposure to COVID-19
CPT/HCPCS: 87635

== ENCOUNTER 2021-02-06 08:18 | Inpatient (IN) | payer MEDICARE, OTHER, SELFPAY ==
[2019-07-20 10:33] VITALS: BMI 29.9
[2021-01-31 13:28] VITALS: BMI 30.9
[2021-02-06] VITALS (13 sets, daily range): BP systolic 119–149; BP diastolic 9–79; PULSE 62–87; RESP 12–18; TEMP 36.1–37.1; O2SAT 90–99; BMI 30.9
--- NOTE | 2021-02-06 08:27 | DI.RAD.S_ITS ---
PROCEDURE: XR SHOULDER LT 1V INDICATIONS: post op total shoulder TECHNIQUE: 1 views of the shoulder were acquired. COMPARISON: , CR, XR SHOULDER RT MIN 2V, 05/18/2019, 10:56. FINDINGS: Bones: No fractures or dislocations. Shoulder arthroplasty has been performed. Moderate periarticular osteophyte formation at the acromioclavicular joint. No suspicious bony lesions. Visualized ribs appear intact. Soft tissues: No suspicious soft tissue calcifications. IMPRESSION: Expected appearance of shoulder arthroplasty. Dictated by: Roxana Colin M.D. on 02/06/2021 at 13:48 Approved by: Roxana Colin M.D. on 02/06/2021 at 13:48
[2021-02-06] MEDS: LACTATED RINGERS 1,000 ML 42 ML IV ×2 (09:13→11:05)
--- NOTE | 2021-02-06 09:42 | PM.PREOP ---
Pre-operative Note COVID-19 COVID-19 status: Negative Result date/Date tested (Pos, Neg/Pending): 02/03/21 Interval Note History & Physical reviewed/Exam performed by Physician: Yes Changes to H&P: Yes H&P completed within 30 days and has changed as indicated here:: Patient reports he had a fall where he twisted his left, operative, shoulder over the weekend. Pain has been worse but not severe and he is able to move his arm over his head without significant pain this morning.
[2021-02-06] MEDS: CEFAZOLIN 1 GM VIAL 2 GM IV (10:00)
--- NOTE | 2021-02-06 10:10 | SUR.PREOP ---
Block start time 0948 . Monitoring initiated and maintained throughout procedure. Oxygen and medications given per anesthesiologist. Patient remained stable throughout procedure, no adverse reactions noted. Block end time 0959. Patient left for OR in stable condition.
[2021-02-06] MEDS: TRANEXAMIC ACID 1,000 MG VIAL 1000 MG INJ ×2 (10:25→12:05)
--- NOTE | 2021-02-06 10:32 | PM.PROC.1 ---
Procedures Date/Time Date of procedure: 02/06/21 Time of procedure: 09:45 General Procedure description: Ultrasound guided interscalene brachial plexus nerve block for post op pain control after left total shoulder arthroplasty by Dr. Lo. Risk and benefits of procedure discussed with patient. ASA monitoring applied to patient. O2 given via nasal cannula. 2 mg Versed and 50 mcg fentanyl given for procedural sedation. Skin site was prepped with chlorhexidine and allowed to fully dry. Sterile gloves, mask, hat and probe cover were used to maintain sterility. 2% lidocaine and 30ga needle was used to make a small skin wheal at needle insertion site. Under ultrasound guidance, a 21ga 50mm Pajunk needle was directed into the interscalene groove (middle/anterior scalenes) near the brachial plexus. Patient reported no parasthesias. After negative aspiration, 20 mL 0.5% ropivicaine and 10mg dexamethasone were injected around brachial plexus. Patient tolerated procedure well.
--- NOTE | 2021-02-06 10:35 | SUR.OPER ---
Beach chair with Angel/Charlie shoulder positioner. Lower body on padded OR bed. Head in foam padded head cradle, secured with straps. Non-operative arm secured <90 degrees abduction. Pillow under knees. Safety belt at thigh. Cloth tape over blanket over lower legs.
[2021-02-06] MEDS: THROMBIN (RECOMBINANT) 5,000 UNIT VIAL 5000 UNIT TOP (10:47)
[2021-02-06] MEDS: BUPIVACAINE 0.5% (PF) VIAL 30 ML INJ (10:48)
[2021-02-06] MEDS: EPINEPHrine 1 MG/ML 0.15 MG INJ (10:49)
--- NOTE | 2021-02-06 11:09 | PC.NURSE ---
Day shift: Pt not on AC unit at this time.
--- NOTE | 2021-02-06 12:41 | PM.OP.1 ---
Operative Date/Time/Diagnoses Date of procedure: 02/06/21 Time of procedure: 12:41 Pre-op diagnosis: Left shoulder osteoarthritis Post-op diagnosis: same Procedure & Clinicians Procedure: Left total shoulder replacement Same procedure as scheduled: Yes Indications: The patient has had progressively worsening left shoulder pain with radiographic changes consistent with arthritis. Non-operative management has failed and the patient has requested total shoulder replacement. The risks, benefits and alternatives to surgery were discussed with the patient prior to proceeding. Risks discussed included, but were not limited to, failure to relieve pain, stiffness, infection, nerve damage, deep venous thrombosis, pulmonary embolism, stroke, coma, heart attack, permanent paralysis and , as well as the potential need for eventual revision of the prosthetic. Surgeon: Ted Lo Developer Prover Upholstering: Aureliano Luna Click Yes if Unassisted: No Anesthesia Type: General, Peripheral nerve block and Local Operative Notes Findings: Significant osteoarthritis of the left shoulder with posterior subluxation and a B2 glenoid. The shoulder was extremely tight and access to the glenoid was quite difficult despite extensive releases. Closure Type: primary Specimen(s): none sent Prosthetic devices, grafts, tissues, transplants, or devices: Implants used in this procedure manufactured by the [employer] and included a [employer] Eclipse stemless total shoulder replacement with a large size cage screw, with a 49 mm trunion and a 49 x 18 mm humeral head. There was a large [employer] VaultLock glenoid implanted. In addition a SpeedBridge system was used for subscapularis repair. Applied: implant(s) Estimated Blood Loss (mL): 200 Blood products transfused: none Procedure in detail: The patient was seen in the pre-operative area, where the patient identified the left shoulder as the operative site and this was marked with my initials. The patient received pre-operative antibiotics, underwent an interscalene block, and was taken to the operating room and placed on the operative table in the supine position. After satisfactory anesthesia, a full ?time out? was performed. The patient was repositioned in the ?beach chair? position using a dedicated positioner. All pressure points were well padded, and the knees were slightly bent to prevent tension on the sciatic nerves. The left arm was prepared from the fingers to the base of the neck with ChloroPrep in the usual fashion and draped through sterile drapes. An approximately 12 cm incision was created, starting at the clavicle above the coracoid process and extended towards the deltoid insertion. The deltopectoral interval was used to access the shoulder. The cephalic vein was taken medially. A self retaining retractor was placed. The upper centimeter of the pectoralis major tendon was released. The ?three sisters? were identified and cauterized. The axillary nerve was palpated and protected throughout the case. The biceps was released from its groove and tenodesed over the top of the pectoralis major tendon. The subscapularis was released from the lesser tuberosity with a subscapularis peel and tagged for later repair. The shoulder was dislocated and a cutting guide was used for the proximal humeral osteotomy in 30 degrees of retroversion. Proximal humerus was sized and a 49 mm trunion selected. The central scoring for the cage screw was created and a proximal humerus protector placed. We then removed the self-retaining retractor and placed retractors to access the glenoid. The subscapularis was released with a ?360 degree release? with care being taken to protect the axillary nerve with the inferior portion of this procedure. The remnant of labrum and biceps stump were removed. Despite extensive releases access to the glenoid was extremely limited. We had set up the VIP guide to place the guide pin due to the B2 glenoid however this could not be used due to the restricted space. Eventually the guide pin was placed appropriately freehand. The glenoid was appropriately reamed, taking down the anterior high side and correcting the retroversion. The center hole was enlarged and the peripheral hole and ?smile? for the peg were created. The trial glenoid was placed with good stability. We then cemented the final implant into place after irrigating the peg holes and drying them with thrombin-soaked Gelfoam. We returned our attention to the humerus. The protector was removed and the trunion impacted. The cage screw was placed with excellent fixation. There was bone graft used in the center of the cage screw. A trial head was applied. Stability was checked with 50% posterior translation with spontaneous reduction, 45? external rotation the side with the subscapularis in the repaired position and 70? of internal rotation in the ?scarecrow position?. This was felt to be satisfactory and the appropriate implants were opened. The guide for the placement of the holes for the SpeedBridge was used to select the position of the speed bridge anchors. The humeral head was applied to the neck of the trunion. The joint was relocated one final time. The joint was irrigated and the subscapularis repaired using the SpeedBridge system with 4 SwiveLock anchors. The top of the subscapularis was closed to the leading edge of the supraspinatus with a figure of 8 #2 Ethibond to close the rotator interval. The deltopectoral interval was closed with interrupted 0 Vicryl. The subcutaneous layer was closed with 3-0 Vicryl, and the skin with a running 3-0 V-Lock suture and SteriStrips. An Aquacel Ag dressing was applied, the patient?s arm was placed in a sling, and the patient was taken to recovery having tolerated the procedure well. Complications: none Post-operative Condition: stable Disposition: PACU Plan for aftercare: The patient will be maintained on a standard total shoulder arthroplasty protocol. He will be discharged when he is safe for his home environment.
[2021-02-06] MEDS: BENZOCAINE/MENTHOL 1 LOZ PKT 1 EACH PO (13:31)
[2021-02-06] MEDS: OXYCODONE/ACETAMINOPHEN 5/325 TABLET 1 TAB PO (13:42)
--- NOTE | 2021-02-06 14:01 | PC.NURSE ---
Day shift: Pt on unit at approx 1400 from PACU. Aquacel CDI. CMS ok. C/o left hand pain. VS WNL. RA 97%. Arm in sling. Oriented to room and call light. Tolerating SCD's. Agrees to not get OOB without help from staff. MEdicated for shoulder pain 5/10 in PACU. Will continue to monitor and continue w/ post-op plan of care.
--- NOTE | 2021-02-06 14:06 | SUR.PHASEI ---
PT TRANSFERD IN BED TO ROOM 207, REPORT GIVEN TO RN AND DRESSING CHECKED AT BEDSIDE AND BELONGINGS WITH PT. BED IN LOW POSITION AND CALL LIGHT IN REACH.
[2021-02-06] MEDS: LACTATED RINGERS 1,000 ML 100 ML IV ×2 (14:24→22:17)
[2021-02-06] MEDS: IBUPROFEN 400 MG TABLET PO ×3 (14:25→21:16)
--- NOTE | 2021-02-06 15:10 | PT.IIE ---
Current Diagnoses Primary osteoarthritis, left shoulder (02/06/21) Surgery Performed Operation Date: 02/06/21 09:45 Actual Procedures p Total Shoulder Arthroplasty(Left) - Ted Lo MD Medical History (Last Reviewed 08/05/19 @ 14:53 by Lopez Smith DO) Chronic reflux esophagitis Colon cancer Detached retina Facet arthropathy, lumbar Hyponatremia LAFB (left anterior fascicular block) Leukopenia Melanoma Osteoarthritis Partial sensory seizure disorder Peripheral neuropathy Polyneuropathy Small bowel obstruction Spinal stenosis Physical Therapy Inpatient Evaluation/Re-Eval M1 PT/OT-IP Prior Functional Status Start: 02/06/21 14:22 Freq: NEEDED Status: Active Protocol: Document 02/06/21 15:10 AW (Rec: 02/06/21 15:45 AW [id number]) Medical Review Prior Functional Status Medical History Reviewed Yes Communication Pt is an effective verbal communicator. Mobility and Gait Pt has history of Charcot Shawna Tooth. He uses a SPC ~50 % of the time when out of the house. He states he does not use an assistive device at home. He typically holds the SPC in his right hand and his RHD. He prefers to wear his own shoes or slippers for ambulation. Activities of Daily Living and IADL's Independent with all ADL's. Pt drives and participates in IADL's without restriction. Prior Functional Level (Other details) Pt reports at least two falls in the past 2 months. One was from a treadmill last weekend. He caught his left arm on the rail and reports a traction- type injury. Pt reports good adherence to PT-prescribed HEP for LE strength. Pt had R TSA at the end of 2018. Social History Household Members spouse Living Arrangements House Number of Floors (Floors) One Floor Number of Stairs To Enter/Railing? 4 CHAVEZ through the garage with left side rail going up. Home Environment Standard Height Toilet,Walk in Shower Home Equipment Quad Cane,Straight Cane,Hand Held Shower,Grab Bars Near Toilet Employment Status Retired Additional Social History Comment Pt previously had a lift recliner but got rid of it in favor of a standard recliner. He has a 1/2 wall in his small walk in shower that he uses for prn support. He has an adjustable bed. He has a tripod cane in addition to SPC and SBQC. Pt lives with his , Nidhi, who is in good health and is able to provide necessary assist at home. M2 PT-IP Current Condition Start: 02/06/21 14:22 Freq: NEEDED Status: Active Protocol: Document 02/06/21 15:10 AW (Rec: 02/06/21 15:45 AW [id number]) Physical Therapy Current Condition Current Condition Evaluation Date 02/06/21 Treatment Diagnosis s/p L TSA; impaired mobility, decreased independence with ADL's Onset Date 02/06/21 Precautions Shoulder Precautions Sling,PROM,Internal Rotation to Body,No External Rotation, No Abduction,Forward Flexion to 90 degrees,Pendulums Other Precautions falls; shoes for all OOB mobility Weight Bearing Status Weight Bearing Status Weight Bear as Tolerated M3 PT-IP Subjective Start: 02/06/21 14:22 Freq: NEEDED Status: Active Protocol: Document 02/06/21 15:10 AW (Rec: 02/06/21 15:45 AW [id number]) Subjective Physical Therapy Visit Type Type Initial Evaluation Visit Start Time 14:35 Visit Stop Time 15:10 Total Visit Minutes 35 Physical Therapy Visit Comments Patient Comments Pt is willing to participate with PT Patient Goals Return home with spouse support and resume regular exercise. Therapy Pain Assessment Pain When Pain Assessed During Mobility Pain Present Pain Present Pain Reported Location Left Hand Intensity 5 Scale Used Numeric (0 - 10) Left Shoulder Scale Used not quantified M4 PT-IP Mobility and Gait Start: 02/06/21 14:22 Freq: NEEDED Status: Active Protocol: Document 02/06/21 15:10 AW (Rec: 02/06/21 15:45 AW [id number]) PT-Bed Mobility Assessment Supine to Sit Supine to Sit Contact Guard Assistance,1 Person Assistance,Head of Bed Elevated Sit to Supine Sit to Supine Standby Assistance PT-Transfer Assessment Sit to and From Stand Sit to and from Stand Contact Guard Assistance,Use of Upper Extremities Equipment Transfer Assistive Device Gait Belt,Straight Cane Orthotic/Prosthetic Devices or Brace: Yes Transfers Transfer Destination Bed Transfer Technique pt ambulated with SPC Transfer Ability Level of Assist Contact Guard Assistance, Minimal Assistance,Use of Upper Extremities Comments Mobility Comments Pt was sitting up in bed as PT arrived. BP 136/56 HR 77 SpO2 99% on room air. Pt was able to pull up to long-sitting and don his own house shoes using his right arm. He sat up EOB CGA for balance assist. He stood from EOB CGA due to initial unsteadiness. He ambulated with SPC to the sink . PT provided education on proper fit and function of sling with mirror for visual feedback. Pt expressed understanding. He requested return to bed and completed sit to supine SBA. Pt was left with bed alarm on, call light in reach, and tray table placed on right side. Gait Assessment Gait Gait Assistance Required: Minimum Assistance Distance (Feet) 15 Able to Maintain Weight Bearing Status Yes During Gait Assistive Devices Assistive Device Gait Belt,Straight Cane Orthotic/Prosthetic Devices or Brace: Yes Gait Deviations General Gait Pattern Antalgic,Decreased Stride Length,Decreased Feet Clearance,Flexed Trunk,Lateral Trunk Lean,Narrow Based Gait Factors Limiting Gait Function Factors Limiting Gait Function Decreased Activity Tolerance, Decreased Sensation,Decreased Strength,Pain,Poor Balance, Poor Safety Awareness Comments Gait Comments See mobility comments for details. Stair Climbing Assessment Comments Stair Climbing Comments Not assessed due to safety concerns. PT-Balance Assessment Sitting Balance and Reactions Static Sitting Balance Ability Good Dynamic Sitting Balance Ability Good Standing Balance and Reactions Static Standing Balance Ability Fair Dynamic Standing Balance Ability Poor Device Used [facility] M5 PT-IP Objective Assessments Start: 02/06/21 14:22 Freq: NEEDED Status: Active Protocol: Document 02/06/21 15:10 AW (Rec: 02/06/21 15:45 AW [id number]) Orientation Orientation/Cognition Level of Alertness Alert Orientation Name,Day of Week,Place, Situation Language Function Ability No Deficits Noted Safety Awareness Decreased Safety Awareness Gross Range of Motion Upper Extremity ROM Assessment Left Impaired Lower Extremity ROM Assessment Bilaterally Impaired Impairments limited ankle DF bilaterally Strength Upper Extremity Strength Assessment Left Impaired Lower Extremity Strength Assessment Bilaterally Impaired Hip R 4/5; L 4-/5 Knee B 4+/5 Ankle B 4-/5 Sensation Assessment Sensation Gross Sensation Right UE Impaired,Left UE Impaired,Right LE Impaired, Left LE Impaired Light Touch Impaired Sensation Description Numbness,Tingling,Burning Comments Sensation Comments Pt reports burning sensation left hand. He has dull light touch sensation in bilateral feet following stocking distribution. Bilateral hands affected by dull light touch sensation with left now reported as burdning sensation in the immediate post-op phase. M6 PT-IP Treatment Start: 09/20/21 14:22 Freq: NEEDED Status: Active Protocol: Document 02/06/21 15:10 AW (Rec: 02/06/21 15:45 AW [id number]) Physical Therapy Treatment Education Education Provided Precautions,Post-Op Packet, Safety Brace Education [place],Patient Other Treatments Other Treatment Performed Educated pt on PT plan of care , post-op precautions, importance of distal UE AROM. Pt participated in sling fitting for optimal support and verbalized understanding of appropriate fit. M7 PT-IP Assessment and Plan Start: 02/06/21 14:22 Freq: NEEDED Status: Active Protocol: Document 02/06/21 15:10 AW (Rec: 02/06/21 15:45 AW [id number]) PT Summary Assessment and Plan Potential Rehabilitation Potential Good Status of Condition at Evaluation Evolving Summary Impairments Pain,ROM,Strength,Balance, Sensation,Bed Mobility, Transfers,Gait Assessment Summary Enoch is a 71 yo man with history of Charcot Shawna Tooth seen for PT evaluation on POD0 following L TSA. He had R TSA in April 2019. At baseline, pt uses a SPC for ambulation outside his home and endorses sensation and strength deficits primarily affecting lower extremities. On assessment, pt presents with impaired RUE ROM, strength, and sensation. He required CGA to min assist for transfers and short distance ambulation with SPC. PT anticipates he will meet the goals of this plan of care and will be safe to discharge home with spouse support and outpatient PT which is already scheduled. Will continue to assess and refine discharge recommendation as pt progresses. Goals Bed Mobility Goal Independent Transfer Goal Standby Assistance,Cane Gait Goal Standby Assistance,Cane Gait Distance 150 Other Goals - up/down 4 steps with left rail ascending CGA Days to Meet Goals 3 Frequency of Treatment Frequency Of Treatment Twice a Day Treatment Plan Physical Therapy Treatment Plan Bed Mobility Training,Transfer Training,Gait Training, Therapeutic Exercise,Balance Retraining,Post Op Education, Discharge Planning,Hot or Cold Pack Other Recommendations and Next Treatment review precautions, sling fit; Focus initiate LUE distal AROM; gait with SPC; stairs Precautions Shoulder Precautions Sling,PROM,Internal Rotation to Body,No External Rotation, No Abduction,Forward Flexion to 90 degrees,Pendulums Other Precautions falls; shoes for all OOB mobility Recommendations To Nursing Amount of Assist Needed 1 Person Assist Discharge Recommendations PT Discharge Recommendations Home with Assistance, Outpatient PT Transportation Needs at Discharge Private Vehicle
[2021-02-06] MEDS: OXYCODONE IR 10 MG TABLET PO (16:21)
[2021-02-06] MEDS: ASPIRIN EC 81 MG TABLET PO (21:19)
[2021-02-06] MEDS: levETIRAcetam 250 MG TABLET 1000 MG PO (21:19)
[2021-02-06] MEDS: ZOLPIDEM 5 MG TABLET PO (23:49)
[2021-02-07] MEDS: IBUPROFEN 400 MG TABLET PO ×3 (00:29→08:04)
[2021-02-07 00:44] VITALS: BP 125/60; PULSE 67; RESP 16; TEMP 36.4; O2SAT 99
--- NOTE | 2021-02-07 02:30 | PC.NURSE ---
Addendum entered by Ivet Springer R.N. 02/07/21 06:26: Medicated earlier with oxycodone + Ibuprofen for 5/10 left shoulder pain and ice applied. Now, however, patient states pain is going up and rates severity as 6/10 so requests Tylenol be given at this time; medicated as requested. Original Note: Patient is alert and oriented and slightly anxious. Breath sounds coarse with RA sat of 99%. HRR. Denies nausea. BT present and is passing flatus. Denied dysuria, frequency or urgency with urination; using urinal. Is able to move himself in bed. Gait not assessed but was reported he gets up with cane and 1 assist. Aquacel dressing to left shoulder is CDI. Left UE is in sling. Has good radial pulse and cap refill. Does have some numbness/pain in left thumb and index finger; rates pain as 2/10 and only wanted scheduled Ibuprofen at time of assessment and declined ice pack. Is wearing bilateral calf SCD's. Medicated with Ambien for sleep. Fall risk score is high and bed alarm is activated.
[2021-02-07 03:57] VITALS: BP 139/58; PULSE 69; RESP 17; TEMP 36.7; O2SAT 96
[2021-02-07] MEDS: OXYCODONE IR 5 MG TABLET PO (05:12)
[2021-02-07] MEDS: ACETAMINOPHEN 325 MG TABLET 975 MG PO (06:22)
[2021-02-07] MEDS: PANTOPRAZOLE DR 20 MG TABLET PO (06:22)
[2021-02-07 06:26] LABS: Hematocrit 34.9 % (41-53); Hemoglobin 11.9 g/dL (13.5-17.5)
--- NOTE | 2021-02-07 07:44 | PM.DS.1 ---
History of Present Illness History of Present Illness Date Patient Seen: 02/07/21 Time Patient Seen: 07:44 Chief complaint: Left Total Shoulder Arthroplasty Narrative: The history and physical is contained in the chart previously completed note. Please refer to that note for this information. Discharge Providers Provider Date of admission: 02/06/21 08:18 Discharge Date: 02/07/21 Primary care physician: Lopez Ross MD Consults: 02/06/21 14:00 Consult to Discharge Planning Routine Comment: Consult to Physical Therapy Evaluate & Treat Comment: Physician Instructions: Pendulums, PROM 90 FF, 0 ER, 0 Abd, IR to body Discharge provider: Ted Lo MD Summary Hospital Course Discharge Diagnosis: 1. Left shoulder osteoarthritis 2. Post hemorrhagic anemia Hospital Course: The patient was admitted to the hospital on February 06, 2021 and taken directly to the operating room where he underwent a left shoulder total shoulder replacement with a stemless total shoulder prosthesis. Pain control was excellent until he tried to put pressure on his shoulder to shift in bed. This is improving with treatment this morning. Status at Discharge Cognitive/behavioral status at discharge: oriented Functional status at discharge: uses cane/walker Overall status at discharge: patient is progressing back to baseline Time Spent with Patient Time spent: Less than 30 minutes Exam Vital Signs (past 8 hours): - 02/07/21 00:44 02/07/21 03:57 Temperature 97.6 F 98.0 F Pulse Rate 67 69 Respiratory Rate 16 17 Blood Pressure 125/60 139/58 L Pulse Oximetry 99 96 Oxygen Delivery Method Room Air Oxygen Flow Rate 0 Narrative Exam Narrative: The dressing is intact with no drainage on the bandage. There is no obvious deformity. There is expected postoperative swelling. Light touch is intact in the radial, ulnar, median, muscular cutaneous and axillary nerve distribution. He can extend his thumb, abduct his thumb, abduct his fingers and can fire his biceps and deltoid. Objective Labs Result Diagrams: 02/07/21 06:14 Labs: Laboratory Results - last 24 hr 02/07/21 06:14 Hgb 11.9 L Hct 34.9 L [facility] Medical History (Updated 06/23/20 @ 07:24 by Dana Translation Hi) Chronic reflux esophagitis Colon cancer Detached retina Facet arthropathy, lumbar Hyponatremia LAFB (left anterior fascicular block) Leukopenia Melanoma Osteoarthritis Partial sensory seizure disorder Peripheral neuropathy Polyneuropathy Small bowel obstruction Spinal stenosis Surgical History (Updated 01/31/21 @ 13:57 by Jordana Zamarripa RN) History of arthroplasty of left knee (08/24/11) History of arthroplasty of right knee (02/17/14) History of arthroplasty of right shoulder (05/18/19) History of colon resection Hx of laminectomy (10/18/16) Social History household members: spouse Smoking Status: Never smoker alcohol intake: current Discharge Assessment & Plan Assessment and Plan Assessment: Stable postoperative day 1 status post left total shoulder replacement. He attempted to bridge in bed putting pressure on the left shoulder and developed some discomfort. He does not appear to have any structural damage from this. I anticipate he will be ready for discharge later this morning. Plan of Treatment: Discharge to home. Follow-up in 2 weeks in my office. Discharge prescriptions for oxycodone have been sent to the pharmacy. He has been instructed in the use of Tylenol and ibuprofen for postoperative pain control as well. He has also been instructed in the use of aspirin for DVT prophylaxis. Discharge Plan Discharge Plan Patient Disposition: Home Discharge orders & Medications Prescriptions: New aspirin 81 mg Tablet,Delayed Release (Dr/Ec) 81 mg PO BID 42 Days Qty: 84 RF: 0 oxycodone 5 mg Tablet 5 mg PO Q4H PRN (Reason: Pain, Moderate (4-6)) Qty: 40 RF: 0 Continued multivitamin [Multiple Vitamins] 1 EACH tablet 1 tab PO DAILY Qty: 0 RF: 0 levetiracetam [Keppra] 500 MG tablet 1,000 mg PO BID Qty: 360 RF: 3 carbamazepine [Carbatrol] 300 MG capsule, ER multiphase 12 hr 600 mg PO BID Qty: 360 RF: 3 lorazepam 0.5 mg Tablet 0.5 mg PO DAILY PRN (Reason: Anxiety or sleep) RF: 0 zolpidem [Ambien] 10 mg Tablet 5 - 10 mg PO BEDTIME PRN (Reason: Sleep) RF: 0 Hold Instructions: Home Medication placed on hold at Doctor's office acetaminophen 500 mg Capsule 1,000 mg PO Q6H PRN (Reason: Pain) RF: 0 Excedrin Migraine 250-250-65 mg Tablet 1 tab PO Q4-6H PRN (Reason: Migraines) RF: 0 ibuprofen 200 mg Capsule 600 mg PO QD-BID PRN (Reason: Pain) RF: 0 pantoprazole [Protonix] 20 mg tablet,delayed release (DR/EC) 20 mg PO DAILY RF: 0 Follow up/Referrals: Ted Lo MD [Physician] - 2 Weeks Lopez Ross MD [Primary Care Provider] - Discharge Health Status Multidrug resistant organism: No MDRO Diet/Activity/Treatments Diet: Diet as Tolerated and Regular Activity: You may use your left hand in front of your body below shoulder level. Lift no more than 1-2 lb with your left hand. Cold/Heat Therapy: You may apply ice for 15 minutes every hour to the left shoulder as needed for pain control. Skin/Wound/Dressing Care Report to your healthcare provider any signs of infection, such as:: chills, fever, night sweats, increased pain, unusual drainage and unusual redness Dressing: Leave the dressing intact until follow-up. You may shower with the dressing in place. If the central strip of the dressing becomes saturated with either water or blood, please call the office to have it evaluated. Visit Report/Discharge Packet Instructions: DI for Prescription Opioid Use, DI for Shoulder Replacement Stand Alone Forms: Surgery Discharge Discharge Data Primary Care Provider: Lopez Ross Quality VTE Deep Vein Thrombosis/Pulmonary Embolism Present on Admission: No
[2021-02-07 08:00] VITALS: BP 138/61; PULSE 68; RESP 18; TEMP 36.4; O2SAT 94
[2021-02-07] MEDS: OXYCODONE IR 10 MG TABLET PO ×2 (08:04→10:35)
[2021-02-07] MEDS: MULTIVITAMIN 1 TABLET 1 TAB PO (08:05)
[2021-02-07] MEDS: ASPIRIN EC 81 MG TABLET PO (08:05)
[2021-02-07] MEDS: levETIRAcetam 250 MG TABLET 1000 MG PO (08:05)
[2021-02-07] MEDS: DOCUSATE 100 MG CAPSULE PO (08:05)
--- NOTE | 2021-02-07 09:09 | CM.DANOTE ---
Discharge Planning/Care Management DCP: Case received, EMR reviewed and met with patient. Introduced self and role. Was able to obtain information from patient regarding his baseline activity status prior to his surgery. DCP assessment completed with information currently available. Patient is a 71 year old male who admitted yesterday morning to the care of the orthopedic team. PCP: Dr. Ross. Payer: confirmed: Medicare/[facility]. Patient came to the hospital via private vehicle for a surgical procedure. He had left total shoulder arthroplasty. Patient has history of osteoarthritis. Met with patient in his room. He is pleasant, alert and oriented. He is independent at his baseline. He uses a single point cane when outside, but not in the house. He confirmed that he resides in [place] with his spouse, Nidhi. He confirmed, he has good support at home with his . He has been going to outpatient P.T. here in [place] at [facility], and will continue to do so. P: Patient is to discharge home with outpatient P.T. Discharge Assessment Start: 02/07/21 09:08 Freq: Status: Active Protocol: Document 02/07/21 09:08 (Rec: 02/07/21 09:09 [id number]) Discharge Planning Assessment Assigned Cloth Folder Hand Angelica Cabrera RN/Education Finance Processor Advance Directives? Yes: DPOA FOR HC Advance Directives on File Yes History Provided By Patient,Medical Record Prior Living Arrangements House Household Members spouse Type of transporation used prior to Drives own vehicle admit Independent with ADL's Yes Is patient alert and oriented? Yes Caregiver for Another No Comment Grab bars in bathroom Patient/Family Preference OP PT Therapy Comment Patient is going to [facility] P.T. here in [place]. Barriers to Discharge No Discharge Plan Home Transportation Arrangement Spouse Referrals Initiated None needed Whiteboard Updated in Patient Room with Yes name and ext. # of Cloth Folder Hand Review Status In Process Next Review Type Continued Stay Review Pre-Anesthesia Assessment Start: 01/31/21 13:28 Freq: Status: Complete Protocol: Document 01/31/21 13:28 CAB (Rec: 01/31/21 14:04 CAB [id number]) Pre-Anesthesia Assessment PAC Comment Unable to reach pt for scheduled PAC phone assess. Pt s/p RT TSA 05/18/19. chart review gleaned from prior assess. Preferred Name Dhiraj Patient Information Reviewed Via Chart Review Comment Labs/EKG @ 01/25/21, COVID screen @ 02/03/21 Primary Care Provider Lopez Ross Seen Specialist in Last 12 Months Yes Specialist Seen Orthopedist,Other Primary Language Welsh Preferred Language Welsh Ribbon Hanking Machine Operator Required No Height 6 ft 1 in Weight 235 lb Body Mass Index (BMI) 30.9 Hearing Ability Normal Visual Assist Magnifying Glass Dentition Type Teeth, Natural Present,Teeth, Missing Barriers to Learning Age related,Visual Other Aids No Hx Anesthesia Reactions Yes: Awoke violent s/p colon resection Hx Family Anesthesia Reaction No Hx Malignant Hyperthermia No Hx Blood Transfusions No Anesthesia Review Requested No alcohol intake current alcohol intake frequency a few times a month Smoking Status Never smoker Substance Use Type does not use Pain Present Pain Reported Musculoskeletal Symptoms Abnormal Gait,Back Pain, Difficulty Walking,Joint Pain, Limited Range of Motion,Muscle Weakness,Neck Pain,Numbness, Tingling History of Falling (Recent or History of No ) Patient is completely paralyzed or No completely immobile Prosthesis or Orthotic Device Cane Mental Status Oriented to own ability Is patient on oxygen? No Does patient have SOMERS/SOB No Hx Sleep Apnea No Currently Taking a Beta Ijeoma No Can You Climb a Flight of Stairs Without No SOB Hx Chest Pain No Hx SOB No Hx Syncope or Dizziness No Anti-Coagulant Therapy No Has a Storeroom Keeper No Cardiac Testing No Hx Pacemaker/ICD No Pacemaker Rep Required? No Diet Type At Home Regular dysphagia No Bladder Pattern Nocturia Urinary Catheter Present No Hx Urinary Self Catheterization No Diabetes No Hx Drug Resistant Organism No Presence of External or Internal Medical No Devices Marital Status Lives With spouse Prior Living Arrangements House Number of Floors (Floors) One Floor Support System Child/Children,Spouse Patient Discharge Plan Description Return Home Feels Safe in Current Environment Yes Been Physically Hurt or Threatened By a No Person in Current Environment Do you have thoughts of harming yourself None or others? Are you currently considering suicide? No Do you have a plan to hurt yourself or No Plan others? Do You Have Any Spiritual Beliefs That No May Affect Your HC Choices? Do You Have Any Cultural Practices That No May Affect Your HC Choices? Comment Yarsani Who Can We Speak to About Patient's Care Family, friends Identifying Code for Release of Patient Declines to issue Information Health Care Proxy/Next of Kin Nidhi () Health Care Proxy Emergency Contact Name Nidhi () Emergency Contact Advance Directives? Yes: DPOA FOR HC Advance Directives on File Yes Power of Dry Pan Operator Yes Power of Dry Pan Operator Name Parth Xie Power of Dry Pan Operator
--- NOTE | 2021-02-07 10:05 | PC.NURSE ---
Day shift: Paperwork signed and all questions answered. Pain controlled well per JUL. Pt has worked w/ PT again today. Aquacel remains CDI and CMS intact. Good cap refill and radial pulses. No nausea and VS WNL. RA 97%. scripts went electronic to Pt's pharmacy. Pt has all personal belongings and his cane. Pt to be taken to car that his spouse is driving via WC at approx 1030 to 1100 today. Will update when Pt d/c's.
--- NOTE | 2021-02-07 10:21 | PT.IPTN ---
Current Diagnoses Primary osteoarthritis, left shoulder (02/06/21) Surgery Performed Operation Date: 02/06/21 09:45 Actual Procedures p Total Shoulder Arthroplasty(Left) - Ted Lo MD Physical Therapy Treatment Note M2 PT-IP Current Condition Start: 02/06/21 14:22 Freq: NEEDED Status: Discharge Protocol: Document 02/06/21 15:10 AW (Rec: 02/06/21 15:45 AW [id number]) Physical Therapy Current Condition Current Condition Evaluation Date 02/06/21 Treatment Diagnosis s/p L TSA; impaired mobility, decreased independence with ADL's Onset Date 02/06/21 Precautions Shoulder Precautions Sling,PROM,Internal Rotation to Body,No External Rotation, No Abduction,Forward Flexion to 90 degrees,Pendulums Other Precautions falls; shoes for all OOB mobility Weight Bearing Status Weight Bearing Status Weight Bear as Tolerated M3 PT-IP Subjective Start: 02/06/21 14:22 Freq: NEEDED Status: Discharge Protocol: Document 02/07/21 10:21 AW (Rec: 02/07/21 11:05 AW [id number]) Subjective Physical Therapy Visit Type Type Treatment Note Visit Start Time 09:46 Visit Stop Time 10:21 Total Visit Minutes 35 Physical Therapy Visit Comments Patient Comments I don't think this sling fits just right. Patient Goals Pt is preparing for d/c today Therapy Pain Assessment Pain When Pain Assessed During Mobility Pain Present Pain Present Pain Reported Location Left Shoulder Intensity 8 Scale Used Numeric (0 - 10) Description Throbbing Pain Behaviors Facial Grimacing,Wincing Pain Management Techniques Distraction,Timing of Activity with Medications M4 PT-IP Mobility and Gait Start: 02/06/21 14:22 Freq: NEEDED Status: Discharge Protocol: Document 02/07/21 10:21 AW (Rec: 02/07/21 11:05 AW [id number]) PT-Bed Mobility Assessment Supine to Sit Supine to Sit Standby Assistance,1 Person Assistance,Head of Bed Elevated PT-Transfer Assessment Sit to and From Stand Sit to and from Stand Contact Guard Assistance,Use of Upper Extremities Equipment Transfer Assistive Device Gait Belt,Straight Cane Orthotic/Prosthetic Devices or Brace: Yes Transfers Transfer Destination Chair Transfer Technique pt ambulated with SPC Transfer Ability Level of Assist Standby Assistance,Use of Upper Extremities Comments Mobility Comments Pt was lying in bed as PT arrived. He completed supine to sit SBA with HOB at 30 degrees (pt has adj bed at home). He stood CGA and used SPC to ambulate 15 feet to the window seat CGA>SBA. Pt was able to dress his upper body with min assist to hold left arm while out of sling. Pt donned sling with min assist and continued with LB dressing , needing min assist for all. Pt stood from the seat SBA and ambulated in the halls 140 feet to the stairs with SPC SBA. In initial standing, pt needs time to adjust his balance but then is able to proceed SBA. He ambulates with wide MAICO and does best with shoes on. Pt participated in stair training as below and then ambulated another 140 feet back to the room with SPC SBA. In the room, pt transferred to the window seat and then window seat to chair with SPC SBA. Pt was left with call light in reach. Gait Assessment Gait Gait Assistance Required: Standby Assistance,Contact Guard Assist,1 Person Assist Distance (Feet) 280 Able to Maintain Weight Bearing Status Yes During Gait Assistive Devices Assistive Device Gait Belt,Straight Cane Orthotic/Prosthetic Devices or Brace: Yes Gait Deviations General Gait Pattern Antalgic,Decreased Stride Length,Decreased Feet Clearance,Flexed Trunk,Lateral Trunk Lean,Wide Based Gait Factors Limiting Gait Function Factors Limiting Gait Function Decreased Activity Tolerance, Decreased Sensation,Decreased Strength,Pain,Poor Balance, Poor Safety Awareness Comments Gait Comments See mobility comments for details. Stair Climbing Assessment Evaluation Level of Assist On Stairs Contact Guard Assistance, Minimal Assistance,1 Person Assistance Devices Stair Climbing Assistive Devices Left Railing Technique/Endurance Stair Climbing Direction Ascend and Descend Stair Climbing Technique Step Over Step,Step to Step Number of Steps Climbed 3 Stair Climbing Set # Repetitions (reps) 2 Comments Stair Climbing Comments Pt ascended on first attempt using left rail with his right hand, needing min assist. PT educated pt on side stepping technique as pt has left rail ascending at home. Second set, pt faced left rail and completed CGA. PT-Balance Assessment Sitting Balance and Reactions Static Sitting Balance Ability Good Dynamic Sitting Balance Ability Good Standing Balance and Reactions Static Standing Balance Ability Fair Dynamic Standing Balance Ability Fair Device Used SPC M5 PT-IP Objective Assessments Start: 02/06/21 14:22 Freq: NEEDED Status: Discharge Protocol: Document 02/06/21 15:10 AW (Rec: 02/06/21 15:45 AW [id number]) Orientation Orientation/Cognition Level of Alertness Alert Orientation Name,Day of Week,Place, Situation Language Function Ability No Deficits Noted Safety Awareness Decreased Safety Awareness Gross Range of Motion Upper Extremity ROM Assessment Left Impaired Lower Extremity ROM Assessment Bilaterally Impaired Impairments limited ankle DF bilaterally Strength Upper Extremity Strength Assessment Left Impaired Lower Extremity Strength Assessment Bilaterally Impaired Hip R 4/5; L 4-/5 Knee B 4+/5 Ankle B 4-/5 Sensation Assessment Sensation Gross Sensation Right UE Impaired,Left UE Impaired,Right LE Impaired, Left LE Impaired Light Touch Impaired Sensation Description Numbness,Tingling,Burning Comments Sensation Comments Pt reports burning sensation left hand. He has dull light touch sensation in bilateral feet following stocking distribution. Bilateral hands affected by dull light touch sensation with left now reported as burdning sensation in the immediate post-op phase. M6 PT-IP Treatment Start: 02/06/21 14:22 Freq: NEEDED Status: Discharge Protocol: Document 02/07/21 10:21 AW (Rec: 02/07/21 11:05 AW [id number]) Physical Therapy Treatment Exercises Exercises Shoulder Pendulums,Elbow Flexion/Extension,Wrist ROM, Hand ROM Education Education Provided Precautions,Safety Other Treatments Other Treatment Performed Reviewed AROM exercises but did not perform as pt reporting 12/27 to 02/26. M7 PT-IP Assessment and Plan Start: 02/06/21 14:22 Freq: NEEDED Status: Discharge Protocol: Document 02/07/21 10:21 AW (Rec: 02/07/21 11:44 AW [id number]) PT Summary Assessment and Plan Summary Progress Towards Goals Progressing Toward Goals Assessment Summary Enoch is making good progress with mobility but is hampered by increased shoulder pain today. Provided assist with dressing tasks and educated pt on techniques for same to maintain precautions. He is somewhat impulsive and needs direction to slow down for safety and to plan ahead for stair climbing. Pt is able to don/doff his sling with min assist. He understands his precautions and exercises. He has outpatient PT already scheduled. He is safe to discharge with assist. Goals Bed Mobility Goal Independent Transfer Goal Standby Assistance,Cane Gait Goal Standby Assistance,Cane Gait Distance 150 Other Goals - up/down 4 steps with left rail ascending CGA Days to Meet Goals 3 Frequency of Treatment Frequency Of Treatment Discharge Treatment Plan Physical Therapy Treatment Plan Bed Mobility Training,Transfer Training,Gait Training, Therapeutic Exercise,Balance Retraining,Post Op Education, Discharge Planning,Hot or Cold Pack Precautions Shoulder Precautions Sling,PROM,Internal Rotation to Body,No External Rotation, No Abduction,Forward Flexion to 90 degrees,Pendulums Other Precautions falls; shoes for all OOB mobility Recommendations To Nursing Amount of Assist Needed 1 Person Assist Discharge Recommendations PT Discharge Recommendations Home with Assistance, Outpatient PT Transportation Needs at Discharge Private Vehicle
--- NOTE | 2021-02-07 10:54 | PC.NURSE ---
Day shift: Pt off unit at approx 1050. Reminded Pt to take his home med that he didn't bring here. Tolerated getting into the car well.
== END 2021-02-07 10:55 | disposition home or self-care (01) | DRG 483 ==
PROVIDERS: Admitting Provider Orthopaedic Surgery; Family Provider Family Medicine; PCP Family Medicine; Referring Provider Orthopaedic Surgery; Visit Provider Orthopaedic Surgery
PROC: 0RRK0JZ Replacement of Left Shoulder Joint with Synthetic Substitute, Open Approach (ICD-10-PCS; CPT 23472; principal; 2021-02-06 09:45)
DX: M19.012 Primary osteoarthritis, left shoulder (principal); G40.909 Epilepsy, unspecified, not intractable, without status epilepticus; K21.9 Gastro-esophageal reflux disease without esophagitis; Z20.822 Contact with and (suspected) exposure to COVID-19
CPT/HCPCS: 36415; 64450; 73020; 85014; 85018; 87635; 94762; 97116; 97162; 97530; 97535; C1776; C9803; J0171; J0690; J1100; J2250; J2405; J2704; J3010

== ENCOUNTER 2021-02-15 20:31 | Emergency (ER) | payer MEDICARE, OTHER, SELFPAY ==
[2021-02-06 16:04] VITALS: BMI 30.9
[2021-02-15 20:35] VITALS: BP 204/95; PULSE 62; RESP 20; TEMP 36.6; O2SAT 100
--- NOTE | 2021-02-15 20:41 | DI.CT.S_ITS ---
PROCEDURE: CT ABDOMEN PELVIS W CON INDICATIONS: Abdominal pain eval for bowel obstruction TECHNIQUE: After the administration of intravenous contrast, axial sections acquired from the lung bases to the pubic symphysis. Coronal and sagittal reformats were performed. For radiation dose reduction, the following was used: automated exposure control, adjustment of mA and/or kV according to patient size. COMPARISON: [facility], CT, ABDOMEN/PELVIS WITH CONTRAST, 05/07/2015, 22:48. [facility], CT, CT ABDOMEN PELVIS W CON, 07/06/2019, 12:17. FINDINGS: Image quality: Excellent. Lung bases: There is atelectasis in the left lower lobe. There is a small hiatal hernia. Heart: Heart is normal in size. ABDOMEN: Liver: Unremarkable. Gallbladder: Unremarkable. Biliary ducts: Unremarkable. Pancreas: Unremarkable. Spleen: Unremarkable. Adrenal Glands: There is a left adrenal nodule measuring up to 2.1 cm which demonstrates indeterminate attenuation but appears stable in size compared to the prior studies and likely represents an adenoma. Kidneys and Ureters: Unremarkable. Stomach and Bowel: There is mild gastric wall thickening. Small and large bowel loops are normal in caliber and wall thickness. There is mild fecalization in the distal small bowel suggestive of stasis without abnormal dilatation or transition point to suggest obstruction. No evidence of appendicitis. A few air-fluid levels in the distal colon may reflect a gastroenteritis. Peritoneum: No abnormal intraperitoneal fluid. No free air. Ventral Wall: No hernias. Abdominal Nodes: No retroperitoneal or mesenteric adenopathy by size criteria. Vessels: Aorta and inferior vena cava are normal in size. PELVIS: Pelvic Organs: Unremarkable. Bladder: Unremarkable. Pelvic Nodes: No enlarged lymph nodes. Miscellaneous: No hernias are seen. Bones: Unremarkable. IMPRESSION: 1. No definite evidence of bowel obstruction. Mild fecalization in the distal small bowel without associated abnormal dilatation, transition point, or air-fluid levels likely reflects stasis. 2. Scattered air-fluid levels in the distal colon are suggestive of a gastroenteritis. 3. Mild gastric wall thickening suggestive of a gastritis. 4. Probable left adrenal adenoma appears stable in size. Dictated by: Enoch Dodge M.D. on 02/15/2021 at 21:50 Approved by: Enoch Dodge M.D. on 02/15/2021 at 21:56
[2021-02-15 21:01] LABS: Add Manual Diff / Slide Review NO; Basophils Absolute Auto 100 /uL (0-100); Basophils Percent Auto 1.1 % (0-2); Eosinophils Absolute Auto 100 /uL (0-450); Eosinophils Percent Auto 1.8 % (2-4); Hematocrit 37.1 % (41-53); Hemoglobin 12.7 g/dL (13.5-17.5); Lymphocytes Absolute Auto 1600 /uL (1100-4500); Lymphocytes Percent Auto 28.3 % (25-40); Mean Corpuscular HGB Conc 34.3 % (30-36); Mean Corpuscular Hemoglobin 31.3 PG (26-34); Mean Corpuscular Volume 91.2 fL (80-100); Monocytes Absolute Auto 800 /uL (0-900); Monocytes Percent Auto 14.1 % (3-14); Neutrophils Absolute Auto 3000 /uL (1500-7000); Neutrophils Percent Auto 54.7 % (50-75); Platelet Count 341 X10^3/uL (150-400); Red Blood Cell Count 4.06 X10^6/uL (4.5-5.9); Red Cell Distribution Width 13.1 % (11.6-14.8); White Blood Cell Count 5.5 X10^3/uL (4.5-11.0)
[2021-02-15 21:17] LABS: BUN Creatinine Ratio 18.6 (6-22); Blood Urea Nitrogen 13 mg/dL (9-20); Calcium 8.8 mg/dL (8.4-10.2); Carbon Dioxide 27 mmol/L (22-32); Chloride 91 mmol/L (98-107); Estimated Glomerular Filt Rate > 60.0 mL/min (>60); Glucose 92 mg/dL (80-110); HEMOLYSIS < 15 (0-50); Potassium 4.3 mmol/L (3.4-5.1); Sodium 126 mmol/L (137-145)
[2021-02-15] MEDS: SODIUM CHLORIDE 0.9% 1,000 ML 1000 ML IV (21:27)
--- NOTE | 2021-02-15 22:07 | ED_ITS ---
HPI - General Adult General Chief complaint: Abdominal Pain Stated complaint: states bowel stopage Time Seen by Provider: 02/15/21 20:40 Source: patient Mode of arrival: Wheelchair History of Present Illness HPI narrative: Patient is a 71-year-old male who is here for evaluation of lower abdominal discomfort. He has had a bowel obstruction in the past and was concerned about this. He recently had a left shoulder replacement. Was on pain medicine for about 4 days afterwards. Stop taking his pain medicine about 6 days ago. He does take Metamucil on a daily basis. Contact his primary doctor today and was instructed to start taking Colace however she knew that if he had a bowel obstruction he should not be taking this medicine denies urinary symptoms. Denies vomiting. No fevers. Related Data Home Medications Medication Instructions Recorded Confirmed multivitamin (Multiple Vitamins) 1 tab PO DAILY #0 10/17/16 02/06/21 pantoprazole 20 mg tablet,delayed 20 mg PO DAILY 10/04/17 02/06/21 release (Protonix) acetaminophen 500 mg capsule 1,000 mg PO Q6H PRN 05/04/19 02/06/21 msgaexs-jetooliwyavyo-thxpwwcy 250 1 tab PO Q4-6H PRN 05/04/19 01/31/21 mg-250 mg-65 mg tablet (Excedrin Migraine) ibuprofen 200 mg capsule 600 mg PO QD-BID PRN 05/04/19 02/06/21 lorazepam 0.5 mg tablet 0.5 mg PO DAILY PRN 05/04/19 02/06/21 zolpidem 10 mg tablet (Ambien) 5 - 10 mg PO BEDTIME PRN 05/04/19 02/06/21 Previous Rx's Medication Instructions Recorded carbamazepine 300 mg 600 mg PO BID #360 tab 06/20/17 capsule,extended release [id number] (Carbatrol) levetiracetam 500 mg tablet 1,000 mg PO BID #360 tab 06/20/17 (Keppra) aspirin 81 mg tablet,delayed 81 mg PO BID 42 Days #84 tab 02/07/21 release oxycodone 5 mg tablet 5 mg PO Q4H PRN #40 tab 02/07/21 Allergies Allergy/AdvReac Type Severity Reaction Status Date / Time adhesive tape AdvReac Severe Rash - Verified 02/06/21 08:51 Paper tape ok Review of Systems Constitutional Constitutional: Reports system reviewed and no additional complaints, except as documented Cardiovascular Cardiovascular: Reports system reviewed and no additional complaints, except as documented Respiratory Respiratory: Reports system reviewed and no additional complaints, except as documented Gastrointestinal Gastrointestinal: Reports as per HPI and Reports system reviewed and no additi onal complaints, except as documented Genitourinary Genitourinary: Reports system reviewed and no additional complaints, except as documented Integumentary/Breasts Skin/Breast: Reports system reviewed and no additional complaints, except as documented Hematologic/Lymphatic On Anticoagulants: No Patient History Medical History Chronic reflux esophagitis Colon cancer Detached retina Facet arthropathy, lumbar Hyponatremia LAFB (left anterior fascicular block) Leukopenia Melanoma Osteoarthritis Partial sensory seizure disorder Peripheral neuropathy Polyneuropathy Small bowel obstruction Spinal stenosis Surgical History (Updated 01/31/21 @ 13:57 by Jordana Zamarripa RN) History of arthroplasty of left knee (08/24/11) History of arthroplasty of right knee (02/17/14) History of arthroplasty of right shoulder (05/18/19) History of colon resection Hx of laminectomy (10/18/16) Social History household members: spouse Smoking Status: Never smoker alcohol intake: current Smoking Status: Never smoker alcohol intake frequency: a few times a month Substance Use Type: does not use Exam Initial Vital Signs Initial Vital Signs: Vital Signs Temperature 97.8 F 02/15/21 20:35 Pulse Rate 62 02/15/21 20:35 Respiratory Rate 20 02/15/21 20:35 Blood Pressure 204/95 H 02/15/21 20:35 Pulse Oximetry 100 02/15/21 20:35 HENMA Head: normal to inspection Resp Effort & Inspection: normal respiratory effort Cardio Rate: regular rate GI Inspection: normal to inspection and non-distended Palpation: No guarding Skin General: no rashes or lesions noted Neuro General: patient alert, patient awake and moves all extremities Extrem General: normal to inspection and capillary refill normal Psych Appearance: grossly normal and well kempt Course Orders Ordered: ED Orders 02/15/21 20:41 CT abdomen pelvis w con Stat 02/15/21 20:50 Basic Metabolic Panel Stat Complete Blood Count AUTO DIFF Stat Discontinued Medications Sodium Chloride (Normal Saline 0.9%) 1,000 mls @ 1,000 mls/hr IV BOLUS ONE Stop: 02/15/21 21:39 Last Infusion: 02/15/21 22:31 Dose: 0 mls/hr Documented by: Admin: 02/15/21 21:27 Dose: 1,000 mls/hr Documented by: GISSELL Vital Signs Vital signs: Vital Signs - 8 hr 02/15/21 20:35 02/15/21 23:01 Temperature 97.8 F Pulse Rate 62 61 Respiratory Rate 20 16 Blood Pressure 204/95 H 150/74 H Pulse Oximetry 100 99 Medical Decision Making Lab Data Lab results reviewed: Yes I reviewed the patient's lab results. Result diagrams: 02/15/21 20:50 02/15/21 20:50 Labs: Lab Results 02/15/21 02/15/21 Range/Units 20:50 20:50 WBC 5.5 (4.5-11.0) X10^3/uL RBC 4.06 L (4.5-5.9) X10^6/uL Hgb 12.7 L (13.5-17.5) g/dL Hct 37.1 L (41-53) % MCV 91.2 (80-100) fL MCH 31.3 (26-34) PG MCHC 34.3 (30-36) % RDW 13.1 (11.6-14.8) % Plt Count 341 (150-400) X10^3/uL Neut % (Auto) 54.7 (50-75) % Lymph % (Auto) 28.3 (25-40) % [place] % (Auto) 14.1 H (3-14) % Eos % (Auto) 1.8 L (2-4) % Baso % (Auto) 1.1 (0-2) % Neut # (Auto) 3000 (9295-9055) /uL Lymph # (Auto) 1600 (0887-3786) /uL [place] # (Auto) 800 (0-900) /uL Eos # (Auto) 100 (0-450) /uL Baso # (Auto) 100 (0-100) /uL Sodium 126 L (137-145) mmol/L Potassium 4.3 (3.4-5.1) mmol/L Chloride 91 L (98-107) mmol/L Carbon Dioxide 27 (22-32) mmol/L BUN 13 (9-20) mg/dL Creatinine 0.70 (0.66-1.25) mg/dL Estimated GFR > 60.0 (>60) mL/min BUN/Creatinine Ratio 18.6 (6-22) Glucose 92 (80-110) mg/dL Calcium 8.8 (8.4-10.2) mg/dL Imaging Data CT scan - abdomen/pelvis: Radiologist's Impression: [address] [id number] Scan ReportSigned Patient: Enoch Pina [facility]#: [id number]: [id number]:[id number]/Sex: 71 / MDate of Service: 02/15/21Loc: EDAccession Number: [id number] Procedure: CT abdomen pelvis w con Ordering Provider: Deandre Hall D.O. PROCEDURE: CT ABDOMEN PELVIS W CON INDICATIONS: Abdominal pain eval for bowel obstruction TECHNIQUE: After the administration of intravenous contrast, axial sections acquired from the lung bases to the pubic symphysis. Coronal and sagittal reformats were performed. For radiation dose reduction, the following was used: automated exposure control, adjustment of mA and/or kV according to patient size. COMPARISON: [facility], CT, ABDOMEN/PELVIS WITH CONTRAST, 05/07/2015, 22:48. [facility], CT, CT ABDOMEN PELVIS W CON, 07/06/2019, 12:17. FINDINGS: Image quality: Excellent. Lung bases: There is atelectasis in the left lower lobe. There is a small hiatal hernia. Heart: Heart is normal in size. ABDOMEN: Liver: Unremarkable. Gallbladder: Unremarkable. Biliary ducts: Unremarkable. Pancreas: Unremarkable. Spleen: Unremarkable. Adrenal Glands: There is a left adrenal nodule measuring up to 2.1 cm which demonstrates indeterminate attenuation but appears stable in size compared to the prior studies and likely represents an adenoma. Kidneys and Ureters: Unremarkable. Stomach and Bowel: There is mild gastric wall thickening. Small and large bowel loops are normal in caliber and wall thickness. There is mild fecalization in the distal small bowel suggestive of stasis without abnormal dilatation or transition point to suggest obstruction. No evidence of appendicitis. A few air-fluid levels in the distal colon may reflect a gastroenteritis. Peritoneum: No abnormal intraperitoneal fluid. No free air. Ventral Wall: No hernias. Abdominal Nodes: No retroperitoneal or mesenteric adenopathy by size criteria. Vessels: Aorta and inferior vena cava are normal in size. PELVIS: Pelvic Organs: Unremarkable. Bladder: Unremarkable. Pelvic Nodes: No enlarged lymph nodes. Miscellaneous: No hernias are seen. Bones: Unremarkable. IMPRESSION: 1. No definite evidence of bowel obstruction. Mild fecalization in the distal small bowel without associated abnormal dilatation, transition point, or air-fluid levels likely reflects stasis. 2. Scattered air-fluid levels in the distal colon are suggestive of a gastroenteritis. 3. Mild gastric wall thickening suggestive of a gastritis. 4. Probable left adrenal adenoma appears stable in size. Dictated by: Enoch Dodge M.D. on 02/15/2021 at 21:50 Approved by: Enoch Dodge M.D. on 02/15/2021 at 21:56 MDM Narrative Medical decision making narrative: Nontoxic appearing. CT scan does show mild fecalization which could be consistent with constipation. This also fits his presentation with recent surgery and also recent pain medication. No further workup needed in the emergency department. He was given return precautions and follow-up instructions. He expressed understanding and agreement. Discharge Plan Departure Patient Disposition: Home Clinical Impression: Abdominal pain, Constipation Instructions: DI for Abdominal Pain-Adult, DI for Constipation Activity Restrictions/Additional Instructions: I do recommend you continue all of your medications as directed. You can consider adding Colace like your primary doctor recommended or even a laxative such as MiraLax to your bowel regiment. Be sure to stay hydrated. Return to the emergency department for any new or worsening symptoms. Prescriptions: No Action multivitamin [Multiple Vitamins] 1 EACH tablet 1 tab PO DAILY Qty: 0 RF: 0 levetiracetam [Keppra] 500 MG tablet 1,000 mg PO BID Qty: 360 RF: 3 carbamazepine [Carbatrol] 300 MG capsule, ER multiphase 12 hr 600 mg PO BID Qty: 360 RF: 3 lorazepam 0.5 mg Tablet 0.5 mg PO DAILY PRN (Reason: Anxiety or sleep) RF: 0 zolpidem [Ambien] 10 mg Tablet 5 - 10 mg PO BEDTIME PRN (Reason: Sleep) RF: 0 Hold Instructions: Home Medication placed on hold at Doctor's office acetaminophen 500 mg Capsule 1,000 mg PO Q6H PRN (Reason: Pain) RF: 0 Excedrin Migraine 250-250-65 mg Tablet 1 tab PO Q4-6H PRN (Reason: Migraines) RF: 0 ibuprofen 200 mg Capsule 600 mg PO QD-BID PRN (Reason: Pain) RF: 0 aspirin 81 mg Tablet,Delayed Release (Dr/Ec) 81 mg PO BID 42 Days Qty: 84 RF: 0 oxycodone 5 mg Tablet 5 mg PO Q4H PRN (Reason: Pain, Moderate (4-6)) Qty: 40 RF: 0 pantoprazole [Protonix] 20 mg tablet,delayed release (DR/EC) 20 mg PO DAILY RF: 0 Referrals: Lopez Ross MD [Primary Care Provider] -
[2021-02-15 23:01] VITALS: BP 150/74; PULSE 61; RESP 16; O2SAT 99
== END 2021-02-15 23:01 | disposition home or self-care (01) ==
PROVIDERS: Emergency Provider Emergency Medicine; Family Provider Family Medicine; PCP Family Medicine
DX: R10.30 Lower abdominal pain, unspecified (principal); K59.00 Constipation, unspecified
CPT/HCPCS: 36415; 74177; 80048; 85025; 96360; 99284; Q9967

== ENCOUNTER 2021-05-23 08:53 | Day surgery (SDC) | payer MEDICARE, OTHER, SELFPAY ==
[2021-02-06 16:04] VITALS: BMI 30.9
--- NOTE | 2021-05-23 | PATH_ITS ---
[facility] Accession Number: [id number] . 01 Material submitted: . PART A: gastrointestinal site - GASTRIC POLYPS PART B: esophagus, E-G Junction - GASTROESOPHAGEAL JUNCTION . 02 Diagnosis: A. Stomach, Polyps, Biopsies: Fundic gland polyp. Negative for Helicobacter organisms on H/E stain. Negative for dysplasia and malignancy. . B. Gastroesophageal Junction, Biopsy: Squamous epithelium with no diagnostic abnormality. Intraepithelial eosinophils are not increased. Negative for dysplasia and malignancy. MRV 05/25/2021 1343 Local . 02 Electronically signed: . Nayeli Norwood MD, Pathologist NPI- [id number] . 01 Gross description: . Part A: GASTRIC POLYPS: Received in formalin are 4 fragment(s) of bryant, soft tissue measuring 1.0 x 0.8 x 0.5 cm to 0.3 x 0.3 x 0.2 cm submitted entirely in 1 cassette(s) Part B: GASTROESOPHAGEAL JUNCTION: Received in formalin are 2 fragment(s) of bryant, soft tissue measuring 0.4 x 0.3 x 0.3 cm to 0.2 x 0.1 x 0.1 cm submitted entirely in 1 cassette(s) /QBJ 05/24/2021 0636 Local . 02 Pathologist provided ICD-10: R13.10 . 02 CPT . 978974, [id number] Performed at: 01 [facility] [address], [place], [place] [id number] MD Enoch Cotton MD Phone: [phone] Performed at: 02 [facility] [address] [place], [place] [id number] MD Nayeli Norwood MD Phone: [phone]
[2021-05-23 09:23] VITALS: BP 158/80; PULSE 66; RESP 16; TEMP 36.8; O2SAT 99; BMI 30.3
[2021-05-23] MEDS: SODIUM CHLORIDE 0.9% 1,000 ML 84 ML IV (09:38)
--- NOTE | 2021-05-23 09:46 | PM.HP.1 ---
History of Present Illness History of Present Illness Date Patient Seen: 05/23/21 Time Patient Seen: 09:47 Chief complaint: EGD W/POSS BX Narrative: History of GERD and possible Carlos's. Doing well on pantoprazole denies dysphagia. Patient History Medical History Chronic reflux esophagitis Colon cancer Detached retina Facet arthropathy, lumbar Hyponatremia LAFB (left anterior fascicular block) Leukopenia Melanoma Osteoarthritis Partial sensory seizure disorder Peripheral neuropathy Polyneuropathy Small bowel obstruction Spinal stenosis Surgical History History of arthroplasty of left knee (08/24/11) History of arthroplasty of right knee (02/17/14) History of arthroplasty of right shoulder (05/18/19) History of colon resection Hx of laminectomy (10/18/16) Family & Social History Social History: household members spouse Tobacco & Substance use: Smoking Status Never smoker alcohol intake current alcohol intake frequency a few times a month Substance Use Type does not use Meds Home Medications and Allergies Home Medications Medication Instructions Recorded Confirmed Type multivitamin (Multiple Vitamins) 1 tab PO DAILY #0 10/17/16 05/23/21 History carbamazepine 300 mg 600 mg PO BID #360 tab 06/20/17 05/23/21 Rx capsule,extended release [id number] (Carbatrol) levetiracetam 500 mg tablet 1,000 mg PO BID #360 tab 06/20/17 05/23/21 Rx (Keppra) pantoprazole 20 mg tablet,delayed 20 mg PO DAILY 10/04/17 02/06/21 History release (Protonix) acetaminophen 500 mg capsule 1,000 mg PO Q6H PRN 05/04/19 05/23/21 History zjiaipj-xmalgjuktrzta-arziykgc 250 1 tab PO Q4-6H PRN 05/04/19 01/31/21 History mg-250 mg-65 mg tablet (Excedrin Migraine) ibuprofen 200 mg capsule 600 mg PO QD-BID PRN 05/04/19 05/23/21 History lorazepam 0.5 mg tablet 0.5 mg PO DAILY PRN 05/04/19 05/23/21 History zolpidem 10 mg tablet (Ambien) 5 - 10 mg PO BEDTIME PRN 05/04/19 02/06/21 History doxycycline hyclate 05/23/21 History Allergies Allergy/AdvReac Type Severity Reaction Status Date / Time adhesive tape AdvReac Severe Rash - Verified 02/06/21 08:51 Paper tape ok Review of Systems Review of Systems ROS: Yes All systems reviewed with the patient and are negative except as otherwise documented Exam Vital Signs (past 8 hours): - 05/23/21 09:23 Temperature 98.2 F Pulse Rate 66 Respiratory Rate 16 Blood Pressure 158/80 H Pulse Oximetry 99 Oxygen Delivery Method Room Air Const General: cooperative and comfortable Orientation: alert HENMT Head: normocephalic Ears: external ears normal Nose: external nose normal Face and sinus: normal facial exam Mouth: oral mucosae normal Eyes General: appearance normal, both eyes and all related structures Neck Neck: normal visual inspection Chest Chest: normal inspection of the chest Resp Effort & Inspection: normal respiratory effort Cardio Rate: regular rate GI Inspection: normal to inspection Skin General: no rashes or lesions noted and No jaundice Neuro General: patient alert and moves all extremities Cognition: normal cognition Speech: speech normal Extrem General: no pedal edema Psych Appearance: grossly normal Assessment & Plan Assessment & Plan narrative: 71-year-old male with a history of GERD and a remote history of possible Carlos's. Last endoscopy did not describe classic Carlos's. Surveillance examination is pursued today for clarification and in essence determine the need for long-term surveillance. Time Spent With Patient Critical Care time: I spent a total of [] minutes of critical care time on this patient's care today; this time is exclusive of procedural time.
--- NOTE | 2021-05-23 10:12 | PM.PREOP ---
Pre-operative Note COVID-19 COVID-19 status: Negative Result date/Date tested (Pos, Neg/Pending): 05/23/21 Interval Note History & Physical reviewed/Exam performed by Physician: Yes Changes to H&P: No ASA Class (for procedural sedation): II
--- NOTE | 2021-05-23 10:29 | PM.OP.EGD ---
Operative Date/Time/Diagnoses Date of procedure: 05/23/21 Time of procedure: 10:29 Pre-op diagnosis: GERD possible Carlos's Post-op diagnosis: same Procedure & Clinicians Study performed: EGD with biopsies Same procedure as scheduled: Yes Indications: GERD history of possible Carlos's Surgeon: Reji Pedroza Procedure Notes SCOAP/Timeout: Done Procedure in detail: After the risks and benefits were explained, written and verbal informed consent was obtained. The patient was brought into the procedure room and placed into the left lateral decubitus position. Please see nurse flight deck officer notes for sedation details. The scope was introduced into the mouth through the bite block and advanced under direct visualization to the 2nd portion of the duodenum. The scope was slowly withdrawn carefully examining the mucosa for any defects or lesions. Retroflexed views were accomplished in the stomach. The stomach was decompressed, the scope was then removed from the patient who tolerated the procedure well. Sedation minutes: 13 Complications: none Impression: 1. Duodenum: This appeared visually normal from the bulb through to the 2nd portion. 2. Stomach: There were no ulcers no mass lesions no outlet obstruction. Several benign appearing gastric polyps were found throughout the body and into the fundus region. Otherwise retroflexed views were unremarkable. Few of these polyps were sampled with cold forceps. One of the larger ones which was perhaps about 8 mm came off with 1 bite. I ultimately removed this by way of a Garcia net. 3. Esophagus: The squamocolumnar junction generally seem to correlate with the top of the gastric folds. GEJ was at roughly 40 cm from the incisors. The Z-line was wondering ever so slightly in the 3:00 to 6:00 location. There was evidence of LA grade A esophagitis. Biopsy was taken from the squamocolumnar junction in the 4:00 location. The remainder of the esophagus was unremarkable. Endoscopic diagnosis 1. Gastric polyps 2. LA grade A erosive esophagitis 3. Irregular Z-line Post-procedure Plan for aftercare: 1. Await histopathology 2. Compliance with proton pump inhibitor therapy (pantoprazole) is emphasized. If the patient is indeed taking 20 mg daily, based on the evidence of esophagitis it would appear as though a higher dose would be in order. 3. Surveillance EGD will be considered upon histology review. Disposition: PACU
[2021-05-23 10:32] VITALS: BP 133/80; PULSE 58; RESP 18; TEMP 36.2; O2SAT 93
[2021-05-23 10:37] VITALS: BP 132/76; PULSE 68; RESP 14; O2SAT 98
[2021-05-23 10:42] VITALS: BP 136/88; PULSE 59; RESP 10; O2SAT 97
[2021-05-23 11:05] VITALS: BP 149/84; PULSE 68; RESP 18; TEMP 36.6; O2SAT 98
[2021-05-23 11:30] VITALS: BP 152/72; PULSE 67; RESP 18; TEMP 36.7; O2SAT 98
== END 2021-05-23 11:35 | disposition home or self-care (01) ==
PROVIDERS: Family Provider Family Medicine; PCP Family Medicine; Referring Provider Internal Medicine Gastroenterology; Visit Provider Internal Medicine Gastroenterology
PROC: 0DJ08ZZ Inspection of Upper Intestinal Tract, Via Natural or Artificial Opening Endoscopic (ICD-10-PCS; CPT 43235; principal; 2021-05-23 10:00)
DX: K21.00 Gastro-esophageal reflux disease with esophagitis, without bleeding (principal); K31.7 Polyp of stomach and duodenum
CPT/HCPCS: 43239; J2704

== ENCOUNTER → 2021-06-27 09:06 | Outpatient (CLI) | payer MEDICARE, OTHER, SELFPAY ==
[2021-02-06 16:04] VITALS: BMI 30.9
--- NOTE | 2021-06-27 | DI.MRI.S_ITS ---
PROCEDURE: MR LUMBAR SPINE WO CON INDICATIONS: Spinal stenosis, lumbar region without neurogenic claudicati TECHNIQUE: Noncontrast sagittal T1 spin echo and T2 fast echo, sagittal STIR, axial T1 and T2 fast spin echo through the lumbar spine. In cases with scoliosis, additional coronal T2 fast spin echo may be performed. COMPARISON: [facility], CT, CT ABDOMEN PELVIS W CON, 02/15/2021, 20:59. [facility], MR, L-SPINE W&WO CONTRAST, 06/03/2017, 17:52. [facility], MR, L-SPINE WITHOUT CONTRAST, 07/30/2016, 15:07. [facility], MR, MR LUMBAR SPINE WO CON, 07/25/2019, 10:35. [facility], CR, XR LUMBAR SPINE WITH OBLIQUES PLUS FLEXION EXTENSION, 06/21/2021, 10:07. [facility], MR, L-SPINE WITHOUT CONTRAST, 07/14/2013, 11:04. FINDINGS: Image quality: This examination is limited by involuntary motion artifact. Alignment and Curvature: There is mild retrolisthesis seen at L2-L3 and L5-S1, with minimal retrolisthesis at L3-L4. Bone Marrow: Marrow is of normal overall signal. No acute vertebral body compression fractures. Spinal Cord: Conus medullaris terminates at the L1 level. Visualized cord demonstrates normal signal and size. Paraspinous Soft Tissues: No paravertebral masses. T11-T12: Mild loss of disc height is seen. The disc signal is relatively well preserved. Bridging anterior osteophytes are seen on the right. No neural foraminal narrowing or central canal narrowing can be seen. T12-L1: No significant abnormality is seen. L1-L2: The disc height is well-preserved. Loss of disc signal is seen at this level. Mild generalized disc bulge is seen. Mild bilateral neural foraminal narrowing is seen. Mild central canal narrowing is seen. When comparison is made with the prior images, these findings are similar. L2-L3: Moderate loss of disc height is seen. Loss of disc signal is seen. Reactive marrow endplate changes are seen, which are hyperintense on T1-weighted and T2-weighted imaging and most consistent with fatty metaplasia (Modic type II changes). At least moderate disc bulge is seen, which is eccentric to the right. There is a superimposed central disc protrusion. There is a focal annular fissure seen posteriorly. Moderate facet joint hypertrophy is seen. Moderate bilateral neural foraminal narrowing is seen. Moderate to severe central canal narrowing is seen, as on series 5, image 16. There is mild progression compared to 2020. L3-L4: The disc height is well-preserved. Loss of disc signal is seen at this level. Moderate generalized disc bulge is seen. There is a superimposed central disc protrusion. Moderate facet joint hypertrophy is seen. There is moderate to severe bilateral neural foraminal narrowing seen, right worse than left. There is a degree of compression seen upon the exiting nerve roots. At least moderate central canal narrowing is seen at this level. When comparison is made with the prior images, these findings are similar. L4-L5: The disc height is well-preserved. Loss of disc signal is seen at this level. At least moderate disc bulge is seen, which is eccentric to the right. There is a superimposed central disc protrusion. Moderate to prominent facet hypertrophy is seen. Fluid is seen within the facet joints themselves. Prior right hemilaminectomy change can be seen. Apparent left hemilaminotomy change is also seen. There is moderate to severe bilateral neural foraminal narrowing seen. There is a degree of compression seen upon the exiting nerve roots. Moderate to severe central canal narrowing is seen, as on series 5, image 28. These imaging findings have progressed compared to the prior study. L5-S1: At least moderate loss of disc height and disc signal can be seen. At least moderate disc bulge is seen, which is eccentric to the right. Posteriorly projected endplate osteophytes are seen. Moderate facet joint hypertrophy is seen. There is moderate to severe bilateral neural foraminal narrowing seen at this level. There is a degree of compression seen upon the exiting nerve roots. Moderate central canal narrowing is seen. When comparison is made with the prior images, these findings are similar. IMPRESSION: Multiple levels of lumbar spine degenerative change are seen, which are mildly progressed at L2-L3 and L3-L4 compared to 2020 examination. Dictated by: Terrence Villafana M.D. on 06/27/2021 at 9:50 Approved by: Terrence Villafana M.D. on 06/27/2021 at 9:58
== END ==
PROVIDERS: Family Provider Family Medicine; PCP Family Medicine; Referring Provider Physical Medicine & Rehabilitation Pain Medicine; Visit Provider Physical Medicine & Rehabilitation Pain Medicine
DX: M48.061 Spinal stenosis, lumbar region without neurogenic claudication (principal); M47.816 Spondylosis without myelopathy or radiculopathy, lumbar region; M47.817 Spondylosis without myelopathy or radiculopathy, lumbosacral region
CPT/HCPCS: 72148

== ENCOUNTER → 2021-10-09 14:01 | Outpatient (CLI) | payer MEDICARE, OTHER, SELFPAY ==
[2021-10-09 09:59] VITALS: BMI 30.9
--- NOTE | 2021-10-09 14:02 | DI.RAD.S_ITS ---
PROCEDURE: XR CERVICAL SPINE 4V OR 5V INDICATIONS: NECK PAIN TECHNIQUE: 5 views of the cervical spine acquired. COMPARISON: None. FINDINGS: Bones: No fractures or dislocations to the C6-7 level. Severe degenerative changes are present throughout the cervical spine including intervertebral disc space narrowing, endplate sclerosis, and osteophytosis. Severe neural foraminal stenosis is present on the right at C3-4, C4-5, C5-6 and C6-7. On the left there is moderate foraminal stenosis at C3-4, C4-5, and C5-6. Soft tissues: No prevertebral soft tissue swelling. IMPRESSION: 1. Severe degenerative change, multilevel severe right neural foraminal stenosis and multilevel moderate left neural foraminal stenosis. Dictated by: Leandra Brown M.D. on 10/09/2021 at 16:55 Approved by: Leandra Brown M.D. on 10/09/2021 at 16:57
== END ==
PROVIDERS: Family Provider Family Medicine; PCP Family Medicine; Referring Provider Physical Medicine & Rehabilitation; Visit Provider Physical Medicine & Rehabilitation
DX: M47.22 Other spondylosis with radiculopathy, cervical region (principal); M48.02 Spinal stenosis, cervical region
CPT/HCPCS: 72050

== ENCOUNTER 2021-10-17 08:31 | Outpatient (CLI) | payer MEDICARE, OTHER, SELFPAY ==
[2021-10-09 09:59] VITALS: BMI 30.9
[2021-10-17] VITALS (8 sets, daily range): BP systolic 131–189; BP diastolic 66–84; PULSE 62–73; RESP 12–22; TEMP 36.4; O2SAT 96–100
--- NOTE | 2021-10-17 08:32 | DI.RAD.S_ITS ---
PROCEDURE: PAIN C/T INTERLAMINAR INJECT INDICATIONS: SPINAL STENOSIS COMPARISON: [facility], , PAIN C/T INTERLAMINAR INJECT, 07/16/2018, 8:58. FINDINGS: Fluoroscopic spot filming was performed to verify placement of spinal needles at the C6-7 intralaminar space level(s), as labeled on the films. Appropriate location(s) of the needle tip(s) was confirmed by injection of iodinated contrast. IMPRESSION: Fluoroscopic guidance Approved by: Ramon Staton M.D. on 10/17/2021 at 16:20
[2021-10-17 09:30] LABS: COVID19 -Nasal RAPID Negative (Negative)
[2021-10-17] MEDS: MIDAZOLAM 2 MG/2 ML VIAL IV (10:03)
[2021-10-17] MEDS: IOPAMIDOL 15 ML VIAL 3 ML INJ (10:09)
[2021-10-17] MEDS: BUPIVACAINE 0.25% (PF) VIAL 2 ML INJ (10:10)
[2021-10-17] MEDS: DEXAMETHASONE 10 MG/ML VIAL 30 MG INJ (10:10)
--- NOTE | 2021-10-17 10:22 | P.PCN_ITS ---
Date/Time/Diagnoses Date of procedure: 10/17/21 Time of procedure: 10:22 Pre-procedure diagnosis: 1. CERVICAL STENOSIS, 2. CERVICAL HNP WITH UPPER EXTREMITY RADICULAR FEATURES Post-procedure diagnosis: same Procedure Notes Procedure: 1. FLUORSCOPICALLY GUIDED CONTRAST CONTROLLED INTERLAMINAR EPIDURAL STEROID INJECTION - C6/7 TL ETHAN Indications: Enoch is referred by Dr. Ross for treatment of Cervical HNP with Upper Extremity Paresthesias. Physician: Lopez Smith Total Fluoroscopy time (seconds): 23 Total sedation minutes: 13 Complications: none Procedure in detail & Post-procedure care: FINDINGS Cervical Stenosis due to disc deterioration and nerve root irritation and nerve root irritation DESCRIPTION OF PROCEDURE Fluoroscopically guided, contrast-controlled C6/7 translaminar epidural steroid injection with conscious sedation. Following review of allergy and review of potential side effects and complications, including, but not necessarily limited to, infection, allergic reaction, local tissue breakdown, temporary as well as permanent nerve injury, stroke, paralysis, and possible , the patient indicated that patient understood and agreed to proceed. An informed consent document was signed by the patient, witnessed by a nurse, and placed in the patient's chart. Additionally, other treatment options including modalities, medications, and physical therapy were reviewed with the patient. After review of previous anaesthesic history and IV conscious sedation the patient was deemed safe to proceed with today?s procedure with IV conscious sedation as ASA class II designation. Safety time-out was performed to confirm patient ID, procedure to be performed and site of procedure. IV sedation was accomplished with a combination of 4mg of Versed administered by the RN after DO order, titrated to patient comfort during the course of the procedure while the patient remained responsive to all verbal commands. In the prone position, following sterile prep and drape of the cervical region, the C6/7 translaminar space was identified fluoroscopically. The skin was anesthetized via a 25-gauge 1.5-inch needle with 1% lidocaine solution. At this point, a 25-gauge, 2.5-inch short bevel spinal needle was atraumatically introduced and advanced under fluoroscopic guidance into epidural space at the C6/7 translaminar space. Depth was confirmed on lateral view. Radiological data, including multiple fluoroscopic views of the cervical spine, reveal a spinal needle at the C6/7 translaminar space. Lateral views then show placement of the needle in the epidural space. Subsequent views show contrast material flowing superiorly and inferiorly in the epidural space. DSA fluoroscopy with live contrast injection, once again, confirmed no vascular or intrathecal uptake. At this point, using loss of resistance technique with saline and air, the epidural space was entered. Following negative aspiration, injection of approximately 1.5 cc of [id number] with live fluoroscopy in the AP view confirmed epidural flow in the epidural space without vascular or intrathecal uptake observed. Subsequently, a test dose of 1 cc of 1% lidocaine solution was injected and patient was observed for two minutes without signs or symptoms of complications, including abdominal pain, shortness of breath, bilateral upper or lower extremity weakness, nausea and vomiting, prior to steroid injection. At this point, 3cc or 30mg of dexamethasone was then injected without incident. The patient tolerated the procedure well without signs or symptoms of compl ications prior to being transferred to the recovery area for further monitoring, The patient was then transferred to the recovery area where they were observed for an appropriate period of time after the injection. The patient reported a VAS score of 6 prior to the procedure and a post-procedure VAS of 0. POST OP INSTRUCTIONS The patient was provided a Pain Log to continue to record their response to the target-specific procedure prior to follow-up visit with the referring provider. Additionally, specific post-injection care instructions and a contact number to our office were provided if concerns arise regarding possible complications associated with the procedure are suspected.
== END 2021-10-17 10:43 | disposition home or self-care (01) ==
LOC: RAD 08:32
PROVIDERS: Family Provider Family Medicine; PCP Family Medicine; Referring Provider Physical Medicine & Rehabilitation; Visit Provider Physical Medicine & Rehabilitation
DX: M48.02 Spinal stenosis, cervical region (principal); Z20.822 Contact with and (suspected) exposure to COVID-19
CPT/HCPCS: 62321; 87635; 99152; 99153; J1100; J2250

== ENCOUNTER 2022-06-25 19:35 | Emergency (ER) | payer MEDICARE, OTHER, SELFPAY ==
[2021-10-09 09:59] VITALS: BMI 30.9
[2022-06-25 19:30] VITALS: BP 223/91; PULSE 71; RESP 20; TEMP 36.6; O2SAT 99; BMI 27.3
[2022-06-25 19:45] VITALS: BP 194/86; PULSE 63; RESP 20; O2SAT 99
--- NOTE | 2022-06-25 19:49 | ED.GIBLEED ---
HPI - GI Bleed General Chief complaint: GI Bleed Stated complaint: Black Stool Time Seen by Provider: 06/25/22 19:39 History of Present Illness HPI Narrative: 72-year-old male nonsmoker with history of abdominal pain, degenerative disc disease, peripheral neuropathy, prior bowel obstruction presents by EMS for evaluation of severe, somewhat episodic lower abdominal pain and about 5 days of dark and tarry stools. He is not dizzy nor weak or lightheaded. Denies any chest pain or shortness of breath. He denies nausea or vomiting. He states that he has extensive degenerative disc disease and joint problems and had been taking meloxicam up until about a month ago at which point he switch to ibuprofen, denies use of any other blood thinners. He is not taken any Pepto-Bismol. He states that sometimes he fluctuates between diarrhea and constipation. He denies any dysuria, frequency or urgency. Related Data Home Medications Medication Instructions Recorded Confirmed multivitamin (Multiple Vitamins 1 tab PO DAILY ##0 10/17/16 10/11/21 tablet) acetaminophen 500 mg capsule 1,000 mg PO Q6H PRN Pain 05/04/19 10/11/21 cjjawwp-gyhehbipsbfyq-bgtpfbmt 250 1 tab PO Q4-6H PRN Migraines 05/04/19 10/11/21 mg-250 mg-65 mg tablet (Excedrin Migraine) ibuprofen 200 mg capsule 600 mg PO QD-BID PRN Pain 05/04/19 10/11/21 lorazepam 0.5 mg tablet 0.5 mg PO DAILY PRN Anxiety or 05/04/19 10/11/21 sleep zolpidem 10 mg tablet (Ambien) 5 - 10 mg PO BEDTIME PRN Sleep 05/04/19 10/11/21 carbamazepine 200 mg 200 mg PO BID 10/11/21 10/11/21 tablet,extended release,12 hr cyclobenzaprine 10 mg tablet 10 mg PO TID 10/11/21 10/11/21 doxycycline hyclate 100 mg capsule 100 mg PO DAILY 10/11/21 10/11/21 pantoprazole 40 mg tablet,delayed 40 mg PO DAILY 10/11/21 10/11/21 release Previous Rx's Medication Instructions Recorded levetiracetam 500 mg tablet 1,000 mg PO BID #360 tabs 06/20/17 (Keppra) hyoscyamine sulfate 0.125 mg tablet 0.125 mg PO BID-QID PRN dyspepsia 06/26/22 #20 tabs pantoprazole 40 mg tablet,delayed 40 mg PO DAILY #30 tabs 06/26/22 release (Protonix) Allergies Allergy/AdvReac Type Severity Reaction Status Date / Time adhesive tape AdvReac Severe Rash - Verified 10/11/21 09:26 Paper tape ok Review of Systems Review of Systems Narrative: GENERAL: See HPI HEENT: Denies sinus pain, ear pain, sore throat, difficulty swallowing, dizziness. RESPIRATORY: Denies dyspnea, cough, wheezing, hemoptysis, sputum. CARDIOVASCULAR: See HPI GASTROINTESTINAL: See HPI : Denies dysuria, frequency, incontinence, hematuria, urinary retention. MUSCULOSKELETAL: See HPI SKIN: Denies rash, skin lesions, or other NEUROLOGIC: Denies weakness, headache, numbness, change in speech, confusion, seizures, incoordination. PSYCHIATRIC: No concerning psychosocial issues. 12 point review of systems is negative except for those stated above Patient History Medical History Chronic reflux esophagitis Colon cancer Detached retina Facet arthropathy, lumbar Hyponatremia LAFB (left anterior fascicular block) Leukopenia Melanoma Osteoarthritis Partial sensory seizure disorder Peripheral neuropathy Polyneuropathy Small bowel obstruction Spinal stenosis Surgical History History of arthroplasty of left knee (08/24/11) History of arthroplasty of right knee (02/17/14) History of arthroplasty of right shoulder (05/18/19) History of colon resection Hx of laminectomy (10/18/16) Social History household members: spouse Smoking Status: Never smoker alcohol intake: current Smoking Status: Never smoker alcohol intake frequency: a few times a month Substance Use Type: does not use Exam Narrative Exam Narrative: GENERAL: [72] year old patient appears stated age. Well-developed patient, in mild distress. GCS 15 HEAD: Atraumatic. Normocephalic. EYES: Pupils equal round and reactive. Extraocular motions intact. No scleral icterus. No injection or drainage. ENT: Nose without bleeding, purulent drainage. Throat without erythema, tonsillar hypertrophy or exudate. Airway patent. NECK: Trachea midline. Non tender CARDIOVASCULAR: Regular rate and rhythm without murmurs, gallops, or rubs. RESPIRATORY: Clear to auscultation. Breath sounds equal bilaterally. No wheezes, rales, or rhonchi. GASTROINTESTINAL: Abdomen soft, tender in the right lower quadrant, nondistended. RECTAL: No hemorrhoid, fissure, heme-negative EXTREMITIES: No edema or joint tenderness. BACK: Nontender without deformity or crepitance. No flank tenderness. NEURO: AOx3. SKIN: No rash or erythema of visible areas Initial Vital Signs Initial Vital Signs: Vital Signs Temperature 97.8 F 06/25/22 19:30 Pulse Rate 71 06/25/22 19:30 Respiratory Rate 20 06/25/22 19:30 Blood Pressure 223/91 H 06/25/22 19:30 Pulse Oximetry 99 06/25/22 19:30 Oxygen Delivery Method 06/25/22 19:30 Course Orders Ordered: ED Orders 06/25/22 19:50 Complete Blood Count AUTO DIFF Stat Comprehensive Metabolic Panel Stat Prothrombin Time INR Stat 06/25/22 19:55 Type and Screen Stat 06/25/22 22:16 CT abdomen pelvis w con Stat Discontinued Medications Hydromorphone HCl (Hydromorphone 0.5 Mg Inj) 0.5 mg IV NOW ONE Stop: 06/25/22 22:17 Last Admin: 06/25/22 22:23 Dose: 0.5 mg Documented By: EPI Sodium Chloride (Normal Saline 0.9%) 500 mls @ 1,000 mls/hr IV BOLUS ONE Stop: 06/25/22 22:45 Last Infusion: 06/25/22 23:15 Dose: 0 mls/hr Documented By: Admin: 06/25/22 22:45 Dose: 1,000 mls/hr Documented By: EPI Ondansetron HCl (Ondansetron 4 Mg/2 Ml Inj) 4 mg IV NOW ONE Stop: 06/25/22 22:17 Last Admin: 06/25/22 22:23 Dose: 4 mg Documented By: EPI Reevaluation(s) Reevaluation #1: Significant improvement after above-stated therapies Vital Signs Vital signs: Vital Signs - 8 hr 06/25/22 19:30 06/25/22 19:45 06/25/22 22:30 Temperature 97.8 F Pulse Rate 71 63 67 Respiratory Rate 20 20 20 Blood Pressure 223/91 H 194/86 H 181/82 H Pulse Oximetry 99 99 98 Oxygen Delivery Method Room Air Room Air Room Air 06/25/22 23:02 06/25/22 23:30 Temperature Pulse Rate 60 66 Respiratory Rate 20 20 Blood Pressure 160/72 H 166/72 H Pulse Oximetry 98 99 Oxygen Delivery Method Room Air Room Air MDM - GI Bleed Lab Data 06/25/22 19:50 06/25/22 19:50 Labs: Lab Results 06/25/22 06/25/22 06/25/22 Range/Units 19:50 19:50 19:50 WBC 6.7 (4.5-11.0) X10^3/uL RBC 4.88 (4.5-5.9) X10^6/uL Hgb 14.8 (13.5-17.5) g/dL Hct 43.4 (41-53) % MCV 88.9 (80-100) fL MCH 30.3 (26-34) PG MCHC 34.1 (30-36) % RDW 12.7 (11.6-14.8) % Plt Count 215 (150-400) X10^3/uL Neut % (Auto) 50.1 (50-75) % Lymph % (Auto) 36.0 (25-40) % Barry % (Auto) 11.6 (3-14) % Eos % (Auto) 1.2 L (2-4) % Baso % (Auto) 1.1 (0-2) % Neut # (Auto) 3400 (9450-1808) /uL Lymph # (Auto) 2400 (8765-6755) /uL Barry # (Auto) 800 (0-900) /uL Eos # (Auto) 100 (0-450) /uL Baso # (Auto) 100 (0-100) /uL PT 12.0 (10.1-12.7) SECONDS INR 1.0 (0.9-1.3) Sodium 136 L (137-145) mmol/L Potassium 3.6 (3.4-5.1) mmol/L Chloride 98 (98-107) mmol/L Carbon Dioxide 26 (22-32) mmol/L BUN 16 (9-20) mg/dL Creatinine 0.70 (0.66-1.25) mg/dL Estimated GFR > 60 (>60) mL/min BUN/Creatinine Ratio 22.9 H (6-22) Glucose 89 (80-110) mg/dL Calcium 9.0 (8.4-10.2) mg/dL Total Bilirubin 0.3 (0.2-1.3) mg/dL AST 33 (17-59) IU/L ALT 25 (<50) IU/L Alkaline Phosphatase 72 (38-126) U/L Total Protein 7.6 (6.3-8.2) g/dL Albumin 4.5 (3.5-5.0) g/dL Globulin 3.1 (1.7-4.1) g/dL Albumin/Globulin Ratio 1.5 (1.0-2.8) Blood Type Antibody Screen 06/25/22 Range/Units 19:55 WBC (4.5-11.0) X10^3/uL RBC (4.5-5.9) X10^6/uL Hgb (13.5-17.5) g/dL Hct (41-53) % MCV (80-100) fL MCH (26-34) PG MCHC (30-36) % RDW (11.6-14.8) % Plt Count (150-400) X10^3/uL Neut % (Auto) (50-75) % Lymph % (Auto) (25-40) % Barry % (Auto) (3-14) % Eos % (Auto) (2-4) % Baso % (Auto) (0-2) % Neut # (Auto) (3020-1069) /uL Lymph # (Auto) (3481-8022) /uL Barry # (Auto) (0-900) /uL Eos # (Auto) (0-450) /uL Baso # (Auto) (0-100) /uL PT (10.1-12.7) SECONDS INR (0.9-1.3) Sodium (137-145) mmol/L Potassium (3.4-5.1) mmol/L Chloride (98-107) mmol/L Carbon Dioxide (22-32) mmol/L BUN (9-20) mg/dL Creatinine (0.66-1.25) mg/dL Estimated GFR (>60) mL/min BUN/Creatinine Ratio (6-22) Glucose (80-110) mg/dL Calcium (8.4-10.2) mg/dL Total Bilirubin (0.2-1.3) mg/dL AST (17-59) IU/L ALT (<50) IU/L Alkaline Phosphatase (38-126) U/L Total Protein (6.3-8.2) g/dL Albumin (3.5-5.0) g/dL Globulin (1.7-4.1) g/dL Albumin/Globulin Ratio (1.0-2.8) Blood Type A Positive Antibody Screen Negative Urine Dip Bedside Urine Glucose Negative Bedside Urine Bilirubin - Negative Bedside Urine Ketone - Negative Urine Specific [place]anto 1.010 Bedside Urine Occult Blood - Negative Bedside Urine pH 7.0 Bedside Urine Protein - Negative Bedside Urine Urobilinogen - Negative Bedside Urine Nitrite - Negative Bedside Urine Leukocytes - Negative Esterase ECG Data Interpretation: [address] [address] [address] Scan Report Signed Patient: Enoch Pina MR#: [id number] : 1950 Acct:[id number] Age/Sex: 72 / M Date of Service: 06/25/22 Loc: ED Accession Number: [id number] ?? Procedure: CT abdomen pelvis w con Ordering Provider: Petar Chambers D.O. PROCEDURE:? CT ABDOMEN PELVIS W CON ? INDICATIONS:? severe RLQ pain, rebound, guarding ? TECHNIQUE:? After the administration of IV contrast, axial sections were acquired from the lung bases to the pubic symphysis.? Coronal and sagittal reformats were performed.? For radiation dose reduction, the following was used:? automated exposure control, adjustment of mA and/or kV according to patient size. ? COMPARISON:? [facility], CT, CT ABDOMEN PELVIS W CON, 07/06/2019, 12:17.? [facility], CT, CT ABDOMEN PELVIS W CON, 02/15/2021, 20:59. ? FINDINGS:? Image quality:? Excellent.? ? Lung bases:? There is mild atelectasis and scarring in the lung bases.? ? Heart:? Heart is normal in size.? There is a small hiatal hernia. ? ? ABDOMEN: Liver:? No mass lesion. Gallbladder:? Within normal limits without calcified gallstones.? ? Biliary ducts:? No biliary ductal dilatation.? ? Pancreas:? Unremarkable.? ? Spleen:? Normal in size.? ? Adrenal Glands:? There is thickening of the left adrenal gland which appears unchanged. Kidneys and Ureters:? No hydronephrosis.? ? ? Stomach and Bowel:? Stomach, small bowel loops, and colon are normal in caliber and wall thickness.? The appendix is normal in appearance.? There is a moderate amount of colonic stool throughout the colon suggestive of constipation. Peritoneum:? No abnormal intraperitoneal fluid.? No free air.? ? Ventral Wall: ? No hernia.? Abdominal Nodes:? No retroperitoneal or mesenteric adenopathy by size criteria.? Vessels:? Aorta and inferior vena cava are normal in size.? ? PELVIS: Pelvic Organs:? Unremarkable.? ? Bladder:? Unremarkable.? ? Pelvic Nodes: No enlarged lymph nodes.? Miscellaneous: No inguinal hernias are seen. ? ? ? Bones:? Visualized osseous structures demonstrate no suspicious focal lesions. ? IMPRESSION:? ? 1.? No definite acute intra-abdominal abnormality.? Specifically, no evidence of appendicitis. ? 2. No obstructive uropathy.? ? ? Dictated by: Enoch Dodge M.D. on 06/25/2022 at 23:30 ? ? Approved by: Enoch Dodge M.D. on 06/25/2022 at 23:38 ? MDM Narrative Medical decision making narrative: CC: Lower abdominal pain and dark tarry stool in the absence of vomiting Complicating co-morbidities: Use of NSAIDs, age, prior bowel obstruction, prior abdominal surgeries Data collected from: patient Medical records reviewed: Multiple prior notes in our EMR Differential considered, but not limited to: GI bleed, bowel obstruction, appendicitis, kidney stone versus other Exam documented above, pertinent findings include: Tender in the right lower quadrant but with intact bowel sounds, rectal exam unremarkable, heme-negative. Lab Test results independently reviewed as above. Pertinent findings: No elevated white blood cell count or left shift, H&H stable, platelets 215, INR 1.0, BUN and GFR within normal limits Imaging studies independently reviewed: No significant finding on abdominal CT, specifically no bowel obstruction, free fluid, bleeding or appendicitis, no kidney stone or obstructive uropathy Treatments: Saline, Dilaudid, Zofran Re-evaluations: Significant improvement after above-stated therapies Discussion: Right lower quadrant pain with report of dark stools in the absence of other symptoms. Patient's vital signs and labs are very reassuring, heme-negative rectal exam, CT demonstrates no significant finding. Patient has significant improvement after above-stated therapies. There is no sign of active bleeding. Patient encouraged to employed clear liquid diet, take Protonix, follow closely with his primary care provider and GI and return precautions. Disposition: see below, along with detailed discharge instructions that have been reviewed with patient as well as indications for ED re-evaluation and additional outpatient follow up Discharge Plan Departure Patient Disposition: Home Clinical Impression: Abdominal pain Instructions: DI for Abdominal Pain-Adult Activity Restrictions/Additional Instructions: *You have been diagnosed with [abdominal pain] * As we discussed your history and physical exam as well as labs and imaging are very reassuring. There is no evidence of any severe diagnoses that would require a specific or immediate intervention. *What to do: *Please continue to take your regular medications as directed. [x ] New medication prescriptions sent to your pharmacy: [[facility] ] *Please follow up with your primary care provider in 2-3 days, call for an appointment. Let them know you were seen in the Emergency Department and that we ask that you be seen in follow up. We will electronically transmit a record of today's note if your PCP is in our system *Please consider a clear liquid diet for the next 24-48 hours and then slowly advance to regular as tolerated. Also, try to avoid alcohol, nicotine, caffeine, spicy, acidic or fatty foods as this may worsen your symptoms *If you do not have a primary care provider please contact the [facility] Resource line at [phone]. They will ask some questions about your medical history and help get you set up with a doctor in the community. *Return to Emergency Department if you should have any new, worsening or concerning symptoms, such as [fever greater than 101 F, shaking chills, worsening pain, persistent vomiting or other bothersome symptoms] Prescriptions: New hyoscyamine sulfate 0.125 mg tablet 0.125 mg PO BID-QID PRN (Reason: dyspepsia) Qty: 20 0RF pantoprazole [Protonix] 40 mg tablet,delayed release (DR/EC) 40 mg PO DAILY Qty: 30 0RF No Action multivitamin [Multiple Vitamins] 1 EACH tablet 1 tab PO DAILY Qty: 0 levetiracetam [Keppra] 500 MG tablet 1,000 mg PO BID Qty: 360 3RF lorazepam 0.5 mg Tablet 0.5 mg PO DAILY PRN (Reason: Anxiety or sleep) zolpidem [Ambien] 10 mg Tablet 5 - 10 mg PO BEDTIME PRN (Reason: Sleep) Hold Instructions: Home Medication placed on hold at Doctor's office acetaminophen 500 mg Capsule 1,000 mg PO Q6H PRN (Reason: Pain) Excedrin Migraine 250-250-65 mg Tablet 1 tab PO Q4-6H PRN (Reason: Migraines) ibuprofen 200 mg Capsule 600 mg PO QD-BID PRN (Reason: Pain) pantoprazole 40 mg tablet,delayed release (DR/EC) 40 mg PO DAILY doxycycline hyclate 100 mg capsule 100 mg PO DAILY Label Comments: Take 1 capsule by mouth twice a day as needed cyclobenzaprine 10 mg tablet 10 mg PO TID carbamazepine 200 mg tablet extended release 12 hr 200 mg PO BID Referrals: Lopez Ross MD [Primary Care Provider] - Stand Alone Forms: Patient Portal/API
[2022-06-25 19:57] LABS: Add Manual Diff / Slide Review NO; Basophils Absolute Auto 100 /uL (0-100); Basophils Percent Auto 1.1 % (0-2); Eosinophils Absolute Auto 100 /uL (0-450); Eosinophils Percent Auto 1.2 % (2-4); Hematocrit 43.4 % (41-53); Hemoglobin 14.8 g/dL (13.5-17.5); Lymphocytes Absolute Auto 2400 /uL (1100-4500); Mean Corpuscular HGB Conc 34.1 % (30-36); Mean Corpuscular Hemoglobin 30.3 PG (26-34); Mean Corpuscular Volume 88.9 fL (80-100); Monocytes Absolute Auto 800 /uL (0-900); Monocytes Percent Auto 11.6 % (3-14); Neutrophils Absolute Auto 3400 /uL (1500-7000); Neutrophils Percent Auto 50.1 % (50-75); Platelet Count 215 X10^3/uL (150-400); Red Blood Cell Count 4.88 X10^6/uL (4.5-5.9); Red Cell Distribution Width 12.7 % (11.6-14.8); White Blood Cell Count 6.7 X10^3/uL (4.5-11.0)
[2022-06-25 20:15] LABS: Alanine Aminotransferase 25 IU/L (<50); Albumin 4.5 g/dL (3.5-5.0); Albumin Globulin Ratio 1.5 (1.0-2.8); Alkaline Phosphatase 72 U/L (38-126); Aspartate Aminotransferase 33 IU/L (17-59); BUN Creatinine Ratio 22.9 (6-22); Bilirubin Total 0.3 mg/dL (0.2-1.3); Blood Urea Nitrogen 16 mg/dL (9-20); Carbon Dioxide 26 mmol/L (22-32); Chloride 98 mmol/L (98-107); Estimated Glomerular Filt Rate > 60 mL/min (>60); Globulin 3.1 g/dL (1.7-4.1); Glucose 89 mg/dL (80-110); HEMOLYSIS 16 (0-50); Potassium 3.6 mmol/L (3.4-5.1); Sodium 136 mmol/L (137-145); Total Protein 7.6 g/dL (6.3-8.2)
--- NOTE | 2022-06-25 22:16 | DI.CT.S_ITS ---
PROCEDURE: CT ABDOMEN PELVIS W CON INDICATIONS: severe RLQ pain, rebound, guarding TECHNIQUE: After the administration of IV contrast, axial sections were acquired from the lung bases to the pubic symphysis. Coronal and sagittal reformats were performed. For radiation dose reduction, the following was used: automated exposure control, adjustment of mA and/or kV according to patient size. COMPARISON: [facility], CT, CT ABDOMEN PELVIS W CON, 07/06/2019, 12:17. [facility], CT, CT ABDOMEN PELVIS W CON, 02/15/2021, 20:59. FINDINGS: Image quality: Excellent. Lung bases: There is mild atelectasis and scarring in the lung bases. Heart: Heart is normal in size. There is a small hiatal hernia. ABDOMEN: Liver: No mass lesion. Gallbladder: Within normal limits without calcified gallstones. Biliary ducts: No biliary ductal dilatation. Pancreas: Unremarkable. Spleen: Normal in size. Adrenal Glands: There is thickening of the left adrenal gland which appears unchanged. Kidneys and Ureters: No hydronephrosis. Stomach and Bowel: Stomach, small bowel loops, and colon are normal in caliber and wall thickness. The appendix is normal in appearance. There is a moderate amount of colonic stool throughout the colon suggestive of constipation. Peritoneum: No abnormal intraperitoneal fluid. No free air. Ventral Wall: No hernia. Abdominal Nodes: No retroperitoneal or mesenteric adenopathy by size criteria. Vessels: Aorta and inferior vena cava are normal in size. PELVIS: Pelvic Organs: Unremarkable. Bladder: Unremarkable. Pelvic Nodes: No enlarged lymph nodes. Miscellaneous: No inguinal hernias are seen. Bones: Visualized osseous structures demonstrate no suspicious focal lesions. IMPRESSION: 1. No definite acute intra-abdominal abnormality. Specifically, no evidence of appendicitis. 2. No obstructive uropathy. Dictated by: Enoch Dodge M.D. on 06/25/2022 at 23:30 Approved by: Enoch Dodge M.D. on 06/25/2022 at 23:38
[2022-06-25] MEDS: HYDROMORPHONE 0.5 MG INJ IV (22:23)
[2022-06-25] MEDS: ONDANSETRON 4 MG/2 ML INJ IV (22:23)
[2022-06-25 22:30] VITALS: BP 181/82; PULSE 67; RESP 20; O2SAT 98
[2022-06-25] MEDS: SODIUM CHLORIDE 0.9% 500 ML 1000 ML IV (22:45)
[2022-06-25 23:02] VITALS: BP 160/72; PULSE 60; RESP 20; O2SAT 98
[2022-06-25 23:30] VITALS: BP 166/72; PULSE 66; RESP 20; O2SAT 99
--- NOTE | 2022-06-26 01:04 | PC.NURSE ---
0045: Pt was able to dress self in bed with deliberate movement. Pt then proceeded to lift the provided hospital walker up and into his lap to adjust the leg settings. Then pt stood up at the bedside and reported feeling dizzy. After a few seconds pt then proceed to do dynamic stretches at the bedside. After stretching, pt then walked to the bathroom with a steady gait to the bathroom.
== END 2022-06-26 01:20 | disposition home or self-care (01) ==
PROVIDERS: Emergency Provider Emergency Medicine; Family Provider Family Medicine; PCP Family Medicine
DX: R10.13 Epigastric pain (principal)
CPT/HCPCS: 36415; 74177; 80053; 81003; 85025; 85610; 86850; 86900; 86901; 96374; 96375; 99284; J1170; J2405; Q9967

== ENCOUNTER → 2022-07-08 13:05 | Outpatient (CLI) | payer MEDICARE, OTHER, SELFPAY ==
[2021-10-09 09:59] VITALS: BMI 30.9
--- NOTE | 2022-07-08 13:09 | DI.MRI.S_ITS ---
PROCEDURE: MR CERVICAL SPINE WO CON INDICATIONS: spinal stenosis, cervical region TECHNIQUE: Noncontrast sagittal T1 spin echo and T2 fast spin echo, sagittal STIR, foraminal oblique sagittal T2 fast spin echo, and axial gradient echo or T2 fast spin echo through the cervical spine. COMPARISON: [facility], MR, MR CERVICAL SPINE WO CON, 03/28/2020, 12:13. FINDINGS: Image quality: Excellent. Alignment and Curvature: Trace anterolisthesis of C7 on T1. Bone Marrow: Marrow demonstrates normal overall signal. Mild chronic anterior vertebral body height loss of T1, T2, and T3 are incidentally noted. Spinal Cord: Visualized spinal cord has normal size and signal. No cerebellar tonsillar herniation. Paraspinous Soft Tissues: No paravertebral masses. Prevertebral soft tissues are normal in thickness. C2-C3: Interval progression. Diffuse disc bulge plus superimposed new central posterior disc protrusion indenting on the cord. There is ligamentous hypertrophy indenting on the posterior cord, as well. Interval increase in canal stenosis. AP diameter of the canal is 6.7 mm. Bilateral uncovertebral joint hypertrophy and facet hypertrophy. Moderate to severe bilateral foraminal narrowing with bilateral foraminal C3 nerve root impingement. C3-C4: Interval progression. Diffuse disc bulge with large left posterior lateral disc plus osteophyte. The central canal measures 8.1 mm. There is marked narrowing of the left side of the canal with obliteration of the left lateral recess. There is bilateral facet hypertrophy. Severe bilateral foraminal narrowing with bilateral foraminal C4 nerve root impingement. C4-C5: Diffuse posterior disc post osteophyte. AP diameter of the canal is 7.4 mm. There is flattening on the ventral cord. There is severe bilateral lateral recess stenosis. There is bilateral uncovertebral joint hypertrophy and prominent bilateral facet hypertrophy. There is quite severe bilateral foraminal narrowing with bilateral foraminal C5 nerve root impingement. C5-C6: There is diffuse posterior disc post osteophyte. There is no significant central canal stenosis. There is bilateral uncovertebral joint hypertrophy and facet hypertrophy. There is severe bilateral foraminal narrowing with bilateral foraminal C6 nerve root impingement. C6-C7: No central canal stenosis. Bilateral uncovertebral joint hypertrophy and bilateral facet hypertrophy with severe bilateral foraminal narrowing and bilateral foraminal C7 nerve root impingement. C7-T1: There is no central canal stenosis. There is moderate right foraminal narrowing with flattening deformity on the exiting right C8 nerve root. IMPRESSION: 1. Severe cervical spondylitic change. 2. Progressive findings at C2-C3 and C3-C4. At C2-C3, there is severe central canal stenosis. At C3-C4, there is marked narrowing of the left side of the canal. There is moderate to severe canal stenosis at C4-C5, as well. 3. Advanced multilevel bilateral foraminal narrowing with multilevel bilateral foraminal nerve root impingement as described above. Dictated by: Jacek Evangelista M.D. on 07/09/2022 at 10:44 Approved by: Jacek Evangelista M.D. on 07/09/2022 at 10:57
== END ==
PROVIDERS: Family Provider Family Medicine; PCP Family Medicine; Referring Provider Family Medicine; Visit Provider Family Medicine
DX: M48.02 Spinal stenosis, cervical region (principal)
CPT/HCPCS: 72141

== ENCOUNTER → 2022-08-06 11:33 | Outpatient (CLI) | payer MEDICARE, OTHER, SELFPAY ==
[2021-10-09 09:59] VITALS: BMI 30.9
--- NOTE | 2022-08-06 | DI.CT.S_ITS ---
PROCEDURE: CT CERVICAL SPINE WO CON INDICATIONS: Spinal stenosis, cervical region TECHNIQUE: Noncontrast 3 mm thick sections acquired from the skull base to the T4 level. Sagittal and coronal reformats were then constructed. For radiation dose reduction, the following was used: automated exposure control, adjustment of mA and/or kV according to patient size. COMPARISON: [facility], MR, MR CERVICAL SPINE WO CON, 07/08/2022, 13:16. FINDINGS: Image quality: There is artifact associated with the metallic hardware. Artifact from the metallic hardware is reduced by metal reconstruction algorithm. Bones: No fractures or dislocations. Visualized superior ribs are intact. Degenerative change can be seen throughout, including involving the C1-C2 interface anteriorly. There is [id number] disc space narrowing seen at C2-C3, C3-C4, and C4-C5. At least moderate disc space narrowing can be seen at C5-C6 and C6-C7. Posteriorly directed endplate osteophytes can be seen, which are worst at the C5-C6 and C6-C7 levels. Moderate to severe neural foraminal narrowing can be seen on the left at C3-C4, with moderate to severe bilateral neural foraminal narrowing seen at C4-C5, C5-C6, and C6-C7. Streak artifact from bilateral shoulder arthroplasty hardware can be seen. Soft tissues: Prevertebral soft tissues are normal in thickness. No paravertebral hematomas. No apical pneumothoraces. There is a calcified right thyroid lesion seen, as on series 6, image 51, measuring 2.1 cm. IMPRESSION: Multiple levels of significant degenerative change can be seen, which are worst inferiorly. Additional findings: Calcified right thyroid lesion, likely benign Dictated by: Terrence Villafana M.D. on 08/06/2022 at 12:43 Approved by: Terrence Villafana M.D. on 08/06/2022 at 12:47
== END ==
PROVIDERS: Family Provider Family Medicine; PCP Family Medicine; Referring Provider Neurological Surgery; Visit Provider Neurological Surgery
DX: M48.02 Spinal stenosis, cervical region (principal); M47.812 Spondylosis without myelopathy or radiculopathy, cervical region; E07.9 Disorder of thyroid, unspecified
CPT/HCPCS: 72125

== ENCOUNTER 2022-10-01 13:26 | Emergency (ER) | payer MEDICARE, OTHER, SELFPAY ==
[2021-10-09 09:59] VITALS: BMI 30.9
[2022-10-01 13:31] VITALS: BP 171/80; PULSE 65; RESP 16; TEMP 36.9; O2SAT 98; BMI 28.3
--- NOTE | 2022-10-01 14:21 | ED.GENADULT ---
HPI - General Adult General Chief complaint: Urogenital-Male Stated complaint: extreme ABD pain unable to urinate Time Seen by Provider: 10/01/22 13:51 Source: patient Mode of arrival: Ambulatory History of Present Illness HPI narrative: Patient is a 72-year-old male who is here for evaluation of right lower quadrant abdominal pain that he states is radiating to his right inguinal region down into his right test. He also states he is having some issues with urinating. Is having hesitancy and urgency. He is being followed by Urology. Is scheduled to have a scope later this week. He also states he feels like he is constipated. He did have a bowel movement yesterday but not today. What brought him in today is the right lower quadrant abdominal pain. He has had this pain in the past. He has been seen in this emergency department for this pain. He is had a CT scan that was unremarkable. He states that they differences that it is radiating down to his right testicle. Patient does have chronic neurologic issues and uses a walker at baseline. He contacted the nurse advice line who advised that he come to the emergency department for further evaluation. Related Data Home Medications Medication Instructions Recorded Confirmed multivitamin (Multiple Vitamins 1 tab PO DAILY ##0 10/17/16 10/11/21 tablet) acetaminophen 500 mg capsule 1,000 mg PO Q6H PRN Pain 05/04/19 10/11/21 nognrfl-ekhgatpymbori-iiekzcdf 250 1 tab PO Q4-6H PRN Migraines 05/04/19 10/11/21 mg-250 mg-65 mg tablet (Excedrin Migraine) ibuprofen 200 mg capsule 600 mg PO QD-BID PRN Pain 05/04/19 10/11/21 lorazepam 0.5 mg tablet 0.5 mg PO DAILY PRN Anxiety or 05/04/19 10/11/21 sleep zolpidem 10 mg tablet (Ambien) 5 - 10 mg PO BEDTIME PRN Sleep 05/04/19 10/11/21 carbamazepine 200 mg 200 mg PO BID 10/11/21 10/11/21 tablet,extended release,12 hr cyclobenzaprine 10 mg tablet 10 mg PO TID 10/11/21 10/11/21 doxycycline hyclate 100 mg capsule 100 mg PO DAILY 10/11/21 10/11/21 pantoprazole 40 mg tablet,delayed 40 mg PO DAILY 10/11/21 10/11/21 release Previous Rx's Medication Instructions Recorded levetiracetam 500 mg tablet 1,000 mg PO BID #360 tabs 06/20/17 (Keppra) hyoscyamine sulfate 0.125 mg tablet 0.125 mg PO BID-QID PRN dyspepsia 06/26/22 #20 tabs pantoprazole 40 mg tablet,delayed 40 mg PO DAILY #30 tabs 06/26/22 release (Protonix) tamsulosin 0.4 mg capsule (Flomax) 0.4 mg PO DAILY #30 caps 10/01/22 Allergies Allergy/AdvReac Type Severity Reaction Status Date / Time adhesive tape AdvReac Severe Rash - Verified 10/11/21 09:26 Paper tape ok Review of Systems Constitutional Constitutional: Reports system reviewed and no additional complaints, except as documented Cardiovascular Cardiovascular: Reports system reviewed and no additional complaints, except as documented Respiratory Respiratory: Reports system reviewed and no additional complaints, except as documented Gastrointestinal Gastrointestinal: Reports system reviewed and no additional complaints, except as documented Genitourinary Genitourinary: Reports system reviewed and no additional complaints, except as documented Integumentary/Breasts Skin/Breast: Reports system reviewed and no additional complaints, except as documented Neurologic Neurologic: Reports system reviewed and no additional complaints, except as documented Hematologic/Lymphatic On Anticoagulants: No Patient History Medical History Chronic reflux esophagitis Colon cancer Detached retina Facet arthropathy, lumbar Hyponatremia LAFB (left anterior fascicular block) Leukopenia Melanoma Osteoarthritis Partial sensory seizure disorder Peripheral neuropathy Polyneuropathy Small bowel obstruction Spinal stenosis Surgical History History of arthroplasty of left knee (08/24/11) History of arthroplasty of right knee (02/17/14) History of arthroplasty of right shoulder (05/18/19) History of colon resection Hx of laminectomy (10/18/16) Social History household members: spouse Smoking Status: Never smoker alcohol intake: current Smoking Status: Never smoker alcohol intake frequency: a few times a month Substance Use Type: does not use Exam Initial Vital Signs Initial Vital Signs: Vital Signs Temperature 98.4 F 10/01/22 13:31 Pulse Rate 65 10/01/22 13:31 Respiratory Rate 16 10/01/22 13:31 Blood Pressure 171/80 H 10/01/22 13:31 Pulse Oximetry 98 10/01/22 13:31 Oxygen Delivery Method Room Air 10/01/22 13:31 Const General: cooperative, comfortable and No ill appearing HENMT Head: normal to inspection and normocephalic Resp Effort & Inspection: normal respiratory effort Auscultation: clear to auscultation bilaterally Cardio Rate: regular rate Rhythm: regular rhythm GI Inspection: normal to inspection and non-distended Palpation: tender (Right lower quadrant) Other: No inguinal hernia felt External: normal external exam Penis: normal penis Scrotum: scrotum normal Testes: normal, no masses and no testicular mass Skin General: no rashes or lesions noted Neuro General: patient alert, patient awake and moves all extremities Extrem General: capillary refill normal Course Orders Ordered: ED Orders 10/01/22 15:08 CT kidney ureter bladder (KUB) Stat Vital Signs Vital signs: Vital Signs - 8 hr 10/01/22 13:31 10/01/22 17:25 Temperature 98.4 F Pulse Rate 65 78 Respiratory Rate 16 18 Blood Pressure 171/80 H 168/78 H Pulse Oximetry 98 97 Oxygen Delivery Method Room Air Room Air Medical Decision Making Medical Records Medical records reviewed: Yes I reviewed the patient's medical records. Lab Data Lab results reviewed: Yes I reviewed the patient's lab results. Labs: Urine Dip Bedside Urine Glucose Negative Bedside Urine Bilirubin - Negative Bedside Urine Ketone +/- 5 Urine Specific [place] 1.010 Bedside Urine Occult Blood - Negative Bedside Urine pH 6.0 Bedside Urine Protein - Negative Bedside Urine Urobilinogen - Negative Bedside Urine Nitrite - Negative Bedside Urine Leukocytes - Negative Esterase Point of care testing: Urine Dip Bedside Urine Glucose Negative Bedside Urine Bilirubin - Negative Bedside Urine Ketone +/- 5 Urine Specific [place] 1.010 Bedside Urine Occult Blood - Negative Bedside Urine pH 6.0 Bedside Urine Protein - Negative Bedside Urine Urobilinogen - Negative Bedside Urine Nitrite - Negative Bedside Urine Leukocytes - Negative Esterase Imaging Data CT scan - abdomen/pelvis: Radiologist's Impression: PROCEDURE:? CT KIDNEY URETER BLADDER (KUB) ? INDICATIONS:? R sided abd pain eval for stone ? TECHNIQUE:? Axial sections were acquired from the lung bases to the pubic symphysis.? Coronal and sagittal reformats were performed.? For radiation dose reduction, the following was used: ?automated exposure control, adjustment of mA and/or kV according to patient size.? ? COMPARISON:? [facility], CT, KIDNEY/ URETER/BLADDER, 03/11/2014, 12:17.? [facility], CT, CT ABDOMEN PELVIS W CON, 07/06/2019, 12:17. ? FINDINGS:? Image quality:? Good ? Lower chest:? Scattered scarring/atelectasis.? Stable left lower lung micro nodule.? Tiny hiatal hernia.? Annular calcifications and possible coronary calcifications. ? Solid organs:? The liver is unremarkable.? Gallbladder is unremarkable.? No pathologic dilation of the biliary tree or pancreatic duct.? No splenomegaly.? Left adrenal adenoma again seen. ? No calcified stones identified.? No definite hydronephrosis.? Small focal bladder wall thickening at the posterior aspect is seen measuring about 7 mm in thickness (, ).? This is more conspicuous than prior.? This is close to the left UVJ stable perinephric fat stranding, possibly senescent. ? Vessels and lymph nodes:? No abdominal aortic aneurysm or pathologic adenopathy by size criteria atherosclerotic disease. ? Bowel and peritoneum:? No evidence of small bowel obstruction.? No pathologic ascites.? No abscess. ? Body wall:? Unremarkable ? Pelvis:? Similar heterogeneous appearance of the prostate with mild enlargement.? This is not well evaluated on CT. ? Bones:? Similar sclerotic lesion of the left femoral neck.? Degenerative changes.? No acute or suspicious abnormality. ? IMPRESSION:? No calcified stone identified. ? Questionable focal wall thickening of the posterior bladder measuring 7 mm in thickness, adjacent to the left UVJ.? See reference image , .? Correlate with any symptoms of hematuria.? Consider cystoscopy if clinically suspicious.? Perigraft other stable/incidental findings as described above MDM Narrative Medical decision making narrative: No signs of urinary tract infection. He is not retaining urine. The CT scan of his abdomen shows no acute pathology. He is scheduled to follow-up with urology later this week. We discussed that potentially this is prostatitis however he declined prostate exam. His testicular exam today is unremarkable. No signs of testicular torsion. Is no indication for antibiotics. Patient is not on tamsulosin. He was given a prescription for this and he will think about whether not he wants to take this medication before talking with his urologist. There is no indication for surgical consultation. Patient was given return precautions. He expressed understanding and agreement. Discharge Plan Departure Patient Disposition: Home Clinical Impression: Abdominal pain, Dysuria Instructions: DI for Dysuria -- Adult Activity Restrictions/Additional Instructions: I do recommend that you continue to take all of your medications as directed and keep all of your scheduled medical appointments. Return to the emergency department for new or worsening symptoms. Prescriptions: New tamsulosin [Flomax] 0.4 mg capsule 0.4 mg PO DAILY Qty: 30 0RF No Action multivitamin [Multiple Vitamins] 1 EACH tablet 1 tab PO DAILY Qty: 0 levetiracetam [Keppra] 500 MG tablet 1,000 mg PO BID Qty: 360 3RF lorazepam 0.5 mg Tablet 0.5 mg PO DAILY PRN (Reason: Anxiety or sleep) zolpidem [Ambien] 10 mg Tablet 5 - 10 mg PO BEDTIME PRN (Reason: Sleep) Hold Instructions: Home Medication placed on hold at Doctor's office acetaminophen 500 mg Capsule 1,000 mg PO Q6H PRN (Reason: Pain) Excedrin Migraine 250-250-65 mg Tablet 1 tab PO Q4-6H PRN (Reason: Migraines) ibuprofen 200 mg Capsule 600 mg PO QD-BID PRN (Reason: Pain) hyoscyamine sulfate 0.125 mg tablet 0.125 mg PO BID-QID PRN (Reason: dyspepsia) Qty: 20 0RF pantoprazole [Protonix] 40 mg tablet,delayed release (DR/EC) 40 mg PO DAILY Qty: 30 0RF pantoprazole 40 mg tablet,delayed release (DR/EC) 40 mg PO DAILY doxycycline hyclate 100 mg capsule 100 mg PO DAILY Patient Comments: Take 1 capsule by mouth twice a day as needed cyclobenzaprine 10 mg tablet 10 mg PO TID carbamazepine 200 mg tablet extended release 12 hr 200 mg PO BID Referrals: Lopez Ross MD [Primary Care Provider] - Stand Alone Forms: Patient Portal/API
--- NOTE | 2022-10-01 15:08 | DI.CT.S_ITS ---
PROCEDURE: CT KIDNEY URETER BLADDER (KUB) INDICATIONS: R sided abd pain eval for stone TECHNIQUE: Axial sections were acquired from the lung bases to the pubic symphysis. Coronal and sagittal reformats were performed. For radiation dose reduction, the following was used: automated exposure control, adjustment of mA and/or kV according to patient size. COMPARISON: [facility], CT, KIDNEY/ URETER/BLADDER, 03/11/2014, 12:17. [facility], CT, CT ABDOMEN PELVIS W CON, 07/06/2019, 12:17. FINDINGS: Image quality: Good Lower chest: Scattered scarring/atelectasis. Stable left lower lung micro nodule. Tiny hiatal hernia. Annular calcifications and possible coronary calcifications. Solid organs: The liver is unremarkable. Gallbladder is unremarkable. No pathologic dilation of the biliary tree or pancreatic duct. No splenomegaly. Left adrenal adenoma again seen. No calcified stones identified. No definite hydronephrosis. Small focal bladder wall thickening at the posterior aspect is seen measuring about 7 mm in thickness (, ). This is more conspicuous than prior. This is close to the left UVJ stable perinephric fat stranding, possibly senescent. Vessels and lymph nodes: No abdominal aortic aneurysm or pathologic adenopathy by size criteria atherosclerotic disease. Bowel and peritoneum: No evidence of small bowel obstruction. No pathologic ascites. No abscess. Body wall: Unremarkable Pelvis: Similar heterogeneous appearance of the prostate with mild enlargement. This is not well evaluated on CT. Bones: Similar sclerotic lesion of the left femoral neck. Degenerative changes. No acute or suspicious abnormality. IMPRESSION: No calcified stone identified. Questionable focal wall thickening of the posterior bladder measuring 7 mm in thickness, adjacent to the left UVJ. See reference image , . Correlate with any symptoms of hematuria. Consider cystoscopy if clinically suspicious. Perigraft other stable/incidental findings as described above Dictated by: Piter Larson M.D. on 10/01/2022 at 16:28 Approved by: Piter Larson M.D. on 10/01/2022 at 16:35
[2022-10-01 17:25] VITALS: BP 168/78; PULSE 78; RESP 18; O2SAT 97
== END 2022-10-01 17:30 | disposition home or self-care (01) ==
PROVIDERS: Emergency Provider Emergency Medicine; Family Provider Family Medicine; PCP Family Medicine
DX: R10.31 Right lower quadrant pain (principal); R30.0 Dysuria
CPT/HCPCS: 51798; 74176; 81003; 99282; 99284

== ENCOUNTER 2022-12-05 05:20 | Emergency (ER) | payer MEDICARE, OTHER, SELFPAY ==
[2021-10-09 09:59] VITALS: BMI 30.9
[2022-12-05 05:24] VITALS: BP 149/66; O2SAT 99
[2022-12-05 05:30] VITALS: BP 141/58; PULSE 63; O2SAT 99
[2022-12-05 05:33] VITALS: BP 149/66; PULSE 70; RESP 18; TEMP 36.4; O2SAT 99; BMI 28.0
--- NOTE | 2022-12-05 05:44 | ED.ALLEREA ---
HPI - Allergic Reaction General Chief complaint: Allergic Reaction Stated complaint: on new med now face is swollen Time Seen by Provider: 12/05/22 05:44 Source: patient Mode of arrival: Ambulatory History of Present Illness HPI narrative: 72-year-old male who several days ago started to develop itching and rash. He did not remember any specific new exposure. He is not on any new medication. He was taking Benadryl and Claritin. He contacted his primary doctor because he was still having the symptoms. He was told that he could take Mariann. There was some discussion about starting him on steroids but he has had an issue with dexamethasone in the past. He took an Mariann last evening. He states he then started to have swelling of his face in his lip. No vomiting. No fevers. No problems breathing. He also took Benadryl last evening. His rash is itching. Related Data Home Medications Medication Instructions Recorded Confirmed multivitamin (Multiple Vitamins 1 tab PO DAILY ##0 10/17/16 10/11/21 tablet) acetaminophen 500 mg capsule 1,000 mg PO Q6H PRN Pain 05/04/19 10/11/21 qstooyj-iqjirlcntiysq-oethnygr 250 1 tab PO Q4-6H PRN Migraines 05/04/19 10/11/21 mg-250 mg-65 mg tablet (Excedrin Migraine) ibuprofen 200 mg capsule 600 mg PO QD-BID PRN Pain 05/04/19 10/11/21 lorazepam 0.5 mg tablet 0.5 mg PO DAILY PRN Anxiety or 05/04/19 10/11/21 sleep zolpidem 10 mg tablet (Ambien) 5 - 10 mg PO BEDTIME PRN Sleep 05/04/19 10/11/21 carbamazepine 200 mg 200 mg PO BID 10/11/21 10/11/21 tablet,extended release,12 hr cyclobenzaprine 10 mg tablet 10 mg PO TID 10/11/21 10/11/21 doxycycline hyclate 100 mg capsule 100 mg PO DAILY 10/11/21 10/11/21 pantoprazole 40 mg tablet,delayed 40 mg PO DAILY 10/11/21 10/11/21 release Previous Rx's Medication Instructions Recorded levetiracetam 500 mg tablet 1,000 mg PO BID #360 tabs 06/20/17 (Keppra) hyoscyamine sulfate 0.125 mg tablet 0.125 mg PO BID-QID PRN dyspepsia 06/26/22 #20 tabs pantoprazole 40 mg tablet,delayed 40 mg PO DAILY #30 tabs 06/26/22 release (Protonix) tamsulosin 0.4 mg capsule (Flomax) 0.4 mg PO DAILY #30 caps 10/01/22 prednisone 20 mg tablet 20 mg PO DAILY #6 tabs 12/05/22 Allergies Allergy/AdvReac Type Severity Reaction Status Date / Time adhesive tape AdvReac Severe Rash - Verified 10/11/21 09:26 Paper tape ok celecoxib [From Celebrex] AdvReac Verified 12/05/22 05:36 dexamethasone AdvReac Numbness Verified 12/05/22 05:36 divalproex sodium AdvReac Verified 12/05/22 05:36 [From Depakote] Review of Systems ENT Ears, Nose, Mouth, and Throat: Reports system reviewed and no additional complaints, except as documented Respiratory Respiratory: Reports system reviewed and no additional complaints, except as documented Gastrointestinal Gastrointestinal: Reports system reviewed and no additional complaints, except as documented Integumentary/Breasts Skin/Breast: Reports system reviewed and no additional complaints, except as documented Allergic/Immunologic Allergic/Immunologic: Reports system reviewed and no additional complaints, except as documented Patient History Medical History Chronic reflux esophagitis Colon cancer Detached retina Facet arthropathy, lumbar Hyponatremia LAFB (left anterior fascicular block) Leukopenia Melanoma Osteoarthritis Partial sensory seizure disorder Peripheral neuropathy Polyneuropathy Small bowel obstruction Spinal stenosis Surgical History History of arthroplasty of left knee (08/24/11) History of arthroplasty of right knee (02/17/14) History of arthroplasty of right shoulder (05/18/19) History of colon resection Hx of laminectomy (10/18/16) Social History household members: spouse Smoking Status: Never smoker alcohol intake: current Smoking Status: Never smoker alcohol intake frequency: a few times a month Substance Use Type: does not use Exam Initial Vital Signs Initial Vital Signs: Vital Signs Temperature 97.6 F 12/05/22 05:33 Pulse Rate 70 12/05/22 05:33 Respiratory Rate 18 12/05/22 05:33 Blood Pressure 149/66 H 12/05/22 05:33 Pulse Oximetry 99 12/05/22 05:33 Oxygen Delivery Method Room Air 12/05/22 05:33 HENCO Head: normal to inspection Mouth: moist mucous membranes and lip abnormal (Mild swelling lower lip) Throat: posterior oropharynx normal Resp Effort & Inspection: normal respiratory effort Auscultation: clear to auscultation bilaterally Skin Other: Patient does have urticarial rash located on his face and his upper extremities and lower abdomen Neuro General: patient alert, patient awake and moves all extremities Course Orders Ordered: Discontinued Medications Prednisone (Prednisone 20 Mg Tablet) 20 mg PO NOW ONE Stop: 12/05/22 05:45 Vital Signs Vital signs: Vital Signs - 8 hr 12/05/22 05:33 Temperature 97.6 F Pulse Rate 70 Respiratory Rate 18 Blood Pressure 149/66 H Pulse Oximetry 99 Oxygen Delivery Method Room Air MDM - Allergic Reaction MDM Narrative Medical decision making narrative: Patient is obviously having a reaction to something. Unsure the exact etiology in the patient understands the lack of a definitive etiology. Patient is not having any anaphylactic reaction. His oropharynx is unremarkable. Had a discussion with him regarding the steroids. That would be the next step in treatment of his symptoms. He is agreeable to take the steroids. He was given a 1st dose here in the ER and a prescription was sent to the pharmacy of his choice. He can take Claritin and continue the Benadryl as needed as well. Will have him contact his primary doctor for follow-up. Discharge Plan Departure Patient Disposition: Home Clinical Impression: Urticaria Instructions: DI for Hives Activity Restrictions/Additional Instructions: You can continue to take the Benadryl and also the Claritin. We will start you on prednisone. Your 1st dose was given here in the emergency department so your next dose will be tomorrow, 12/06/2022. Contact your primary doctor for follow-up. Return to the emergency department for new or worsening symptoms. Prescriptions: New prednisone 20 mg tablet 20 mg PO DAILY Qty: 6 0RF No Action multivitamin [Multiple Vitamins] 1 EACH tablet 1 tab PO DAILY Qty: 0 levetiracetam [Keppra] 500 MG tablet 1,000 mg PO BID Qty: 360 3RF lorazepam 0.5 mg Tablet 0.5 mg PO DAILY PRN (Reason: Anxiety or sleep) zolpidem [Ambien] 10 mg Tablet 5 - 10 mg PO BEDTIME PRN (Reason: Sleep) Hold Instructions: Home Medication placed on hold at Doctor's office acetaminophen 500 mg Capsule 1,000 mg PO Q6H PRN (Reason: Pain) Excedrin Migraine 250-250-65 mg Tablet 1 tab PO Q4-6H PRN (Reason: Migraines) ibuprofen 200 mg Capsule 600 mg PO QD-BID PRN (Reason: Pain) tamsulosin [Flomax] 0.4 mg capsule 0.4 mg PO DAILY Qty: 30 0RF hyoscyamine sulfate 0.125 mg tablet 0.125 mg PO BID-QID PRN (Reason: dyspepsia) Qty: 20 0RF pantoprazole [Protonix] 40 mg tablet,delayed release (DR/EC) 40 mg PO DAILY Qty: 30 0RF pantoprazole 40 mg tablet,delayed release (DR/EC) 40 mg PO DAILY doxycycline hyclate 100 mg capsule 100 mg PO DAILY Patient Comments: Take 1 capsule by mouth twice a day as needed cyclobenzaprine 10 mg tablet 10 mg PO TID carbamazepine 200 mg tablet extended release 12 hr 200 mg PO BID Referrals: Lopez Ross MD [Primary Care Provider] - Stand Alone Forms: Patient Portal/API
[2022-12-05] MEDS: predniSONE 20 MG TABLET PO (05:53)
[2022-12-05 06:04] VITALS: BP 128/74; PULSE 72; RESP 16; O2SAT 98
== END 2022-12-05 06:05 | disposition home or self-care (01) ==
PROVIDERS: Emergency Provider Emergency Medicine; Family Provider Family Medicine; PCP Family Medicine
DX: L50.9 Urticaria, unspecified (principal)
CPT/HCPCS: 99283